=== PATIENT | female | born 1975 | race Caucasian/White ===

== ENCOUNTER 2016-09-22 20:17 | Emergency (ER) | payer OTHER ==
[2016-09-22 20:34] VITALS: TEMP 97.9; BMI 26.4
[2016-09-22] MEDS ORDERED: FAMOTIDINE 20 MG/50 ML IVPB 50 ML IVPB ONE ×2 (21:31→21:58)
[2016-09-22] MEDS ORDERED: PANTOPRAZOLE SODIUM 40 MG in SODIUM CHLORIDE 100 ML IVPB ONE (21:31)
[2016-09-22] MEDS ORDERED: SODIUM CHLORIDE 1,000 ML IV STA (21:31)
[2016-09-22] MEDS ORDERED: PANTOPRAZOLE SODIUM 100 ML IVPB ONE (21:58)
[2016-09-22 22:19] LABS: BASOPHIL 0.6 % (0-2.0); EOSINOPHIL 0.4 % (0-4.5); MCH 31.3 pg (25.7-33.7); MEAN PLT VOLUME 8.1 fl (7.5-11.1); PLATELET COUNT 317 K/MM3 (134-434); WHITE BLOOD COUNT 11.2 K/mm3 (4.0-10.0)
[2016-09-22 22:22] LABS: URINE APPEARANCE CLEAR; URINE BILIRUBIN NEGATIVE (NEGATIVE); URINE BLOOD NEGATIVE (NEGATIVE); URINE COLOR YELLOW; URINE GLUCOSE (UA) NEGATIVE (NEGATIVE); URINE KETONE NEGATIVE (NEGATIVE); URINE NITRITE NEGATIVE (NEGATIVE); URINE UROBILINOGEN 2.0 E.U/dl E.U./dl (0.2-1.0)
[2016-09-22 22:23] LABS: URINE LEUK ESTERASE TRACE (NEGATIVE); URINE PROTEIN 1+ (NEGATIVE)
[2016-09-22 22:29] LABS: URINE MUCUS RARE; URINE RBC 1 /hpf (0-3); URINE WBC 1 /hpf (3-5)
--- NOTE | 2016-09-22 22:52 | PDOC ---
History of Present Illness - General Chief Complaint: Pain, Acute Stated Complaint: NAUSEA Time Seen by Provider: 09/22/16 21:13 History Source: Patient Exam Limitations: No Limitations - History of Present Illness Travel History: No Initial Comments: 09/22/16 21:20 41yo Female patient presents to ED c/o abd pain- burning feeling in stomach, feeling full, and nausea today. Patient states having generalized weakness which prompt her to come to ED for evaluation. Denies vomiting/diarrhea. LNMP: Sep 14. She states she currently takes Control and Protonix 40mg bid but has been using it only when she experienced stomach pain. Today she reportedly took 20mg. Last meal: 1pm today. Timing/Duration: reports: getting worse Quality: reports: moderate, burning, fullness Abdominal Pain Onset Location: reports: epigastric Pain Radiation: reports: no radiation Activities at Onset: reports: none Treatment Prior to Arrive: improves with: other (Protonix 20mg) Aggravating Factors: improves with: None Alleviating Factors: improves with: None Past History - Travel Traveled outside of the country in the last 30 days: No Close contact w/someone who was outside of country & ill: No - Past Medical History Allergies/Adverse Reactions: Allergies Allergy/AdvReac Type Severity Reaction Status Date / Time No Known Allergies Allergy Verified 09/22/16 20:30 Home Medications: Ambulatory Orders Omeprazole 20 mg PO BID #60 capsule. 09/23/16 Asthma: No Cancer: No Cardiac Disorders: No Diabetes: Yes (gestational) HTN: No Seizures: No Thyroid Disease: No - Immunization History Immunization Up to Date: Yes (flu vaccine) - Psycho/Social/Smoking Cessation Hx Anxiety: No Suicidal Ideation: No Smoking Status: No Smoking History: Never smoked Have you smoked in the past 12 months: No Number of Cigarettes Smoked Daily: 0 Hx Alcohol Use: No Drug/Substance Use Hx: No Substance Use Type: None Hx Substance Use Treatment: No Abd/GI Specific PMHX - Complaint Specific PMHX Colitis: No Diverticulitis: No Gall Bladder Disease: No GERD: No Hepatitis: No Irritable Bowel Synd (IBS): No Pancreatitis: No GI Ulcer Disease: No Review of Systems - Review of Systems Able to Perform ROS?: Yes Is the patient limited Prydeinig proficient: No Constitutional: Yes: Weakness. No: Chills, Fever, Malaise, Night Sweats HEENTM: No: Blurred Vision, Double Vision, Nose Congestion Respiratory: No: Cough, Shortness of Breath, Stridor, Wheezing Cardiac (ROS): No: Chest Pain, Edema, Palpitations, Syncope, Chest Tightness ABD/GI: Yes: Other (Abdominal Pain). No: Constipated, Diarrhea, Nausea, Poor Appetite, Poor Fluid Intake, Vomiting : No: Burning, Dysuria, Frequency, Flank Pain, Hematuria, Pain, Urgency Musculoskeletal: No: Back Pain Integumentary: No: Bruising, Erythema, Rash, Sweating Neurological: No: Headache, Numbness, Paresthesia, Seizure, Tingling, Tremors, Weakness, Dizziness Psychiatric: No: Anxiety, Depression, Stressors All Other Systems: Reviewed and Negative *Physical Exam - Vital Signs Last Vital Signs Temp Pulse Resp BP Pulse Ox 97.9 F 82 18 113/81 100 09/22/16 20:32 09/22/16 20:32 09/22/16 20:32 09/22/16 20:32 09/22/16 20:32 - Physical Exam General Appearance: Yes: Nourished, Appropriately Dressed. No: Apparent Distress, Mild Distress, Moderate Distress, Severe Distress HEENT: positive: EOMI, BRENDAN, Normal ENT Inspection, Normal Voice, Symmetrical, TMs Normal, Pharynx Normal. negative: Tonsillar Exudate, Tonsillar Erythema, Rhinorrhea, Sinus Tenderness, TM Bulging, TM Dull, TM Erythema Neck: positive: Trachea midline, Supple. negative: Stridor, Lymphadenopathy (R) , Lymphadenopathy (L) Respiratory/Chest: positive: Lungs Clear, Normal Breath Sounds. negative: Labored Respiration, Decreased Breath Sounds, Stridor, Wheezing Cardiovascular: positive: Regular Rhythm, Regular Rate. negative: JVD, Murmur Gastrointestinal/Abdominal: positive: Soft, Increased Bowel Sounds. negative: Normal Bowel Sounds, Tender, Distended, Guarding, Rebound, Tenderness Lymphatic: negative: Adenopathy Musculoskeletal: positive: Normal Inspection. negative: CVA Tenderness, Decreased Range of Motion Extremity: positive: Normal Capillary Refill, Normal Inspection, Normal Range of Motion, Pelvis Stable. negative: Tender, Pedal Edema, Swelling Integumentary: positive: Normal Color, Dry, Warm Neurologic: positive: lining closer II-XII NML intact, Fully Oriented, Alert, Normal Mood/ Affect, Normal Response, Motor Strength 5/5 ED Treatment Course - LABORATORY CBC & Chemistry Diagram: 09/22/16 21:50 09/22/16 21:50 - ADDITIONAL ORDERS Additional order review: Laboratory Results 09/22/16 21:50 Urine Color Yellow Urine Appearance Clear Urine pH 5.0 D Ur Specific Jbphh 1.025 Urine Protein 1+ H Urine Glucose (UA) Negative Urine Ketones Negative Urine Blood Negative Urine Nitrite Negative Urine Bilirubin Negative Urine Urobilinogen 2.0 e.u/dl H Ur Leukocyte Esterase Trace H Urine HCG, Qual Negative 09/22/16 21:50 RBC 4.25 MCV 92.0 MCHC 34.0 RDW 14.0 MPV 8.1 Neutrophils % 84.0 H D Lymphocytes % 11.2 D Monocytes % 3.8 Eosinophils % 0.4 Basophils % 0.6 - Medications Given in the ED: ED Medications Discontinued Medications Generic Name Dose Route Start Last Admin Trade Name Freq PRN Reason Stop Dose Admin Pantoprazole Sodium 40 mg/ 100 mls @ 200 mls/hr 09/22/16 21:31 09/22/16 22:28 Sodium Chloride IVPB 09/22/16 22:00 200 mls/hr ONCE ONE Administration Sodium Chloride 1,000 mls @ 1,000 mls/hr 09/22/16 21:31 09/22/16 22:28 Normal Saline - IV 09/22/16 22:30 1,000 mls/hr ASDIR STA Administration *DC/Admit/Observation/Transfer Diagnosis at time of Disposition: GERD (gastroesophageal reflux disease) Qualifiers: Esophagitis presence: without esophagitis Qualified Code(s): K21.9 - Gastro- esophageal reflux disease without esophagitis - Discharge Dispostion Disposition: HOME Condition at time of disposition: Good Admit: No - Prescriptions Prescriptions: Omeprazole 20 mg PO BID #60 capsule.dr - Referrals Referrals: Ej Engel MD [Staff Physician] - - Patient Instructions Printed Discharge Instructions: DI for Gastroesophageal Reflux Disease (GERD) Additional Instructions: FOLLOW UP WITH DR. ENGEL (GASTROENTEROLOGY). CALL TO SCHEDULE APPOINTMENT FOR EVALUATION. TAKE MEDICATIONS PRESCRIBED. Print Language: KAZAKH
[2016-09-22 23:05] LABS: ALBUMIN 3.8 g/dl (3.4-5.0); BILIRUBIN,TOTAL 1.4 mg/dL (0.2-1.0); CREATININE 0.5 mg/dL (0.55-1.02)
[2016-09-22 23:19] LABS: BILIRUBIN,DIRECT 0.2 mg/dL (0.0-0.2)
[2016-09-23 00:31] VITALS: BP 114/79; PULSE 79
--- NOTE | 2016-09-23 11:40 | EKG ---
Test Reason : Blood Pressure : / mmHG Vent. Rate : 089 BPM Atrial Rate : 089 BPM P-R Int : 166 ms QRS Dur : 080 ms QT Int : 350 ms P-R-T Axes : 025 018 007 degrees QTc Int : 425 ms NORMAL SINUS RHYTHM NONSPECIFIC T WAVE ABNORMALITY WHEN COMPARED WITH ECG OF 18-MAY-2016 16:11, NONSPECIFIC T WAVE ABNORMALITY NO LONGER EVIDENT IN ANTERIOR LEADS Confirmed by CRISELDA PERRIN MD ([id number]) on 09/23/2016 11:40:22 AM Referred By: Confirmed By:CRISELDA PERRIN MD
== END 2016-09-23 00:32 | disposition home or self-care (01) ==
LOC: JER 20:17
PROC: 3E033GC Introduction of Other Therapeutic Substance into Peripheral Vein, Percutaneous Approach (ICD-10-PCS; principal; 2016-09-22)
PROC: 3E0337Z Introduction of Electrolytic and Water Balance Substance into Peripheral Vein, Percutaneous Approach (ICD-10-PCS; 2016-09-22)
DX: K21.9 Gastro-esophageal reflux disease without esophagitis (principal)
CPT/HCPCS: 36415; 80048; 80076; 81003; 81015; 82150; 83690; 84703; 85025; 93005; 93010; 99283-25

== ENCOUNTER 2018-02-03 08:49 | Emergency (ER) | payer OTHER ==
[2018-02-03 08:53] VITALS: BMI 26.7
--- NOTE | 2018-02-03 09:33 | PDOC ---
History of Present Illness - General Chief Complaint: Headache Stated Complaint: HEADACHE, LT ARM NUMBNESS Time Seen by Provider: 02/03/18 09:01 History Source: Patient Exam Limitations: No Limitations - History of Present Illness Initial Comments: 02/03/18 09:20 42-year-old female presents to the ED with complaints of 10 minutes generalized head pressure greater to the frontal region for about 10 minutes while at work this morning. Patient states has had similar headaches for the past 2-3 years but states this time she had tingling to her tongue last night which resolved within about 5 minutes and then following a headache she had some tingling to her right forehead that lasted a few minutes and then a half hour later developed tingling to her left cheek, left arm and left leg. Patient states symptoms lasted a few minutes and then resolved. Patient denies visual changes, dizziness, weakness, nausea, chest pain or shortness of breath with episodes or presently. Patient states has had similar presentations as mentioned above but has not followed up with a neurologist and has not taken any medications for symptoms such as Motrin or Tylenol. Patient denies any recent head injury or recent illness Timing/Duration: reports: episodic Severity: Yes: mild Associated Symptoms: reports: paresthesia. denies: confusion, fatigue, loss of consciousness, nausea/vomiting, numbness in legs/feet, slurred speech, trouble walking, vision changes, weakness Past History - Travel Traveled outside of the country in the last 30 days: No - Past Medical History Allergies/Adverse Reactions: Allergies Allergy/AdvReac Type Severity Reaction Status Date / Time No Known Allergies Allergy Verified 02/03/18 08:50 Home Medications: Ambulatory Orders NK [No Known Home Medication] 02/03/18 Asthma: No Cancer: No Cardiac Disorders: No COPD: No Diabetes: Yes (gestational) HTN: No Seizures: No Thyroid Disease: No - Immunization History Immunization Up to Date: Yes (flu vaccine) - Suicide/Smoking/Psychosocial Hx Smoking Status: No Smoking History: Never smoked Have you smoked in the past 12 months: No Number of Cigarettes Smoked Daily: 0 Information on smoking cessation initiated: No Hx Alcohol Use: No Drug/Substance Use Hx: No Substance Use Type: None Hx Substance Use Treatment: No Patient Lives Alone: No Lives with/in: spouse/SO Neuro Specific PMHX - Complaint Specific PMHX Migraine: No Review of Systems - Review of Systems Able to Perform ROS?: No Constitutional: No: Symptoms Reported HEENTM: No: Symptoms Reported Respiratory: No: Symptoms reported Cardiac (ROS): No: Symptoms Reported ABD/GI: No: Symptoms Reported : No: Symptoms Reported Musculoskeletal: No: Symptoms Reported Integumentary: No: Symptoms Reported Neurological: Yes: Headache, Tingling Endocrine: No: Symptoms Reported Hematologic/Lymphatic: No: Symptoms Reported *Physical Exam - Vital Signs Last Vital Signs Temp Pulse Resp BP Pulse Ox 98.3 F 99 H 18 126/79 100 02/03/18 08:51 02/03/18 08:51 02/03/18 08:51 02/03/18 08:51 02/03/18 08:51 - Physical Exam General Appearance: Yes: Nourished, Appropriately Dressed. No: Apparent Distress HEENT: positive: EOMI, BRENDAN, TMs Normal, Pharynx Normal. negative: Pale Conjunctivae Neck: positive: Supple. negative: Decreased range of motion Respiratory/Chest: positive: Lungs Clear, Normal Breath Sounds. negative: Respiratory Distress, Accessory Muscle Use Cardiovascular: positive: Regular Rhythm, Regular Rate. negative: Murmur Gastrointestinal/Abdominal: positive: Soft. negative: Tenderness Extremity: positive: Normal Capillary Refill, Normal Range of Motion, Other. negative: Pedal Edema Integumentary: positive: Warm, Moist Neurologic: positive: Normal Mood/Affect, Motor Strength 5/5 Medical Decision Making - Medical Decision Making 02/03/18 09:37 Patient with episodic frontal headache that resolved prior to arrival. Patient also had some tingling to various parts of her body and although she has had similar presentations for the past 2-3 years. Patient had a head CT done in March 2016 here at [facility] which was negative for acute findings. Patient states has not followed up with a neurologist and decided come to the ER today when her symptoms recurred. Patient is currently asymptomatic since arrival stating her frontal throbbing pressure resolved without intervention. Patient recommended to follow up with neurology and to take Tylenol extra strength for discomfort when symptoms occur and if no resolution to return to the ER. *DC/Admit/Observation/Transfer Diagnosis at time of Disposition: Headache - Discharge Dispostion Disposition: HOME Condition at time of disposition: Improved - Referrals Referrals: Fran John MD [Staff Physician] - - Patient Instructions Printed Discharge Instructions: DI for Hormonal and Tension Headaches Additional Instructions: Take Tylenol 975 mg if you develop any throbbing pressure to your head or forehead. If your symptoms do not resolve over the next hour or 2 then you may return to the ED. Please also follow up with referred neurologist. [place] Tylenol 975 mg si desarrolla alguna presin pulstil en la caleb o en la frente. si aleksandra sntomas no se resuelven en la prxima hora o 2 entonces usted puede volver a la ED. por favor tambin el seguimiento con el neurlogo referido - Post Discharge Activity
[2018-02-03 09:57] VITALS: BP 123/66; PULSE 92; TEMP 98.2
== END 2018-02-03 09:53 | disposition home or self-care (01) ==
LOC: JER 08:49
DX: R51 Headache (principal); Z86.32 Personal history of gestational diabetes
CPT/HCPCS: 99282-25

== ENCOUNTER 2019-02-10 21:12 | Emergency (ER) | payer OTHER | END 2019-02-11 00:17 | disposition home or self-care (01) | LOC: JER 02-11 00:17 | DX: R51 Headache (principal); Z86.32 Personal history of gestational diabetes ==

== ENCOUNTER 2019-05-08 15:18 | Emergency (ER) | payer SELFPAY ==
--- NOTE | 2019-05-08 15:33 | PDOC ---
Rapid Medical Evaluation Medical Evaluation: Allergies Allergy/AdvReac Type Severity Reaction Status Date / Time No Known Allergies Allergy Verified 02/03/18 08:50 05/08/19 15:29 I have performed a brief in-person evaluation of this patient. The patient presents with a chief complaint of: Dizziness x 3 days, no vertigo, CRYSTAL, blurry vision, n/v, focal weakness, CP or SOB Pertinent physical exam findings:stable and well yann I have ordered the following:ekg/labs The patient will proceed to the ED for further evaluation. Discharge Disposition - Diagnosis Dizzy - Referrals - Patient Instructions - Post Discharge Activity
[2019-05-08 15:35] VITALS: TEMP 98.2; BMI 26.3
[2019-05-08 16:23] LABS: BASO % 1.2 % (0-2.0); EOS % 2.2 % (0-4.5); HEMATOCRIT 42.1 % (32.4-45.2); HEMOGLOBIN 14.7 GM/dL (10.7-15.3); LYMPH % 37.8 % (8-40); MCH 34.3 pg (25.7-33.7); MEAN CELL VOLUME 98.2 fl (80-96); MEAN PLT VOLUME 8.2 fl (7.5-11.1); MONO % 7.3 % (3.8-10.2); NEUT % 51.5 % (42.8-82.8); PLATELET COUNT 277 K/MM3 (134-434); RBC 4.29 M/mm3 (3.60-5.2); RDW 13.4 % (11.6-15.6); WHITE BLOOD COUNT 5.3 K/mm3 (4.0-10.0)
[2019-05-08 16:28] LABS: EPI CELLS 7.4 /HPF (0-5/HPF); HYALINE CASTS 1 /lpf (0-8); URINE APPEARANCE CLEAR; URINE BACTERIA 5.4 /hpf (NEGATIVE); URINE BILIRUBIN NEGATIVE (NEGATIVE); URINE COLOR YELLOW; URINE GLUCOSE (UA) NEGATIVE (NEGATIVE); URINE KETONE NEGATIVE (NEGATIVE); URINE LEUK ESTERASE 1+ (NEGATIVE); URINE NITRITE NEGATIVE (NEGATIVE); URINE PROTEIN NEGATIVE (NEGATIVE); URINE RBC 1 /hpf (0-4); URINE UROBILINOGEN 0.2 mg/dL (0.2-1.0); URINE WBC 4 /hpf (0-5)
[2019-05-08 17:03] LABS: ALBUMIN 3.9 g/dl (3.4-5.0); ALK PHOS 86 U/L (45-117); ANION GAP 6 MMOL/L (8-16); BILIRUBIN,TOTAL 1.7 mg/dL (0.2-1); CALCIUM 8.9 mg/dL (8.5-10.1); CHLORIDE 104 mmol/L (98-107); CO2 27 mmol/L (21-32); CREATININE 0.4 mg/dL (0.55-1.3); GLUCOSE,RANDOM 68 mg/dL (74-106); POTASSIUM 4.4 mmol/L (3.5-5.1); SGOT/AST 16 U/L (15-37); SGPT/ALT 20 U/L (13-61); SODIUM 136 mmol/L (136-145)
--- NOTE | 2019-05-08 18:04 | PDOC ---
History of Present Illness - General Chief Complaint: Lightheaded Stated Complaint: DIZZINESS Time Seen by Provider: 05/08/19 15:35 History Source: Patient Exam Limitations: Language Barrier (bend sorter ID#[id number]) Past History - Past Medical History Allergies/Adverse Reactions: Allergies Allergy/AdvReac Type Severity Reaction Status Date / Time No Known Allergies Allergy Verified 05/08/19 15:35 Home Medications: Ambulatory Orders Cetirizine HCl [Zyrtec -] 10 mg PO DAILY #14 tablet 02/10/19 Pseudoephedrine HCl [Sudafed] 30 mg PO QID #24 tablet 02/10/19 Asthma: No Cancer: No Cardiac Disorders: No COPD: No Diabetes: Yes (gestational) HTN: No Seizures: No Thyroid Disease: No - Immunization History Immunization Up to Date: Yes (flu vaccine) - Suicide/Smoking/Psychosocial Hx Smoking Status: No Smoking History: Never smoked Have you smoked in the past 12 months: No Number of Cigarettes Smoked Daily: 0 Hx Alcohol Use: No Drug/Substance Use Hx: No Substance Use Type: None Hx Substance Use Treatment: No *Physical Exam - Vital Signs Last Vital Signs Temp Pulse Resp BP Pulse Ox 98.2 F 85 18 110/71 99 05/08/19 15:33 05/08/19 15:33 05/08/19 15:33 05/08/19 15:33 05/08/19 15:33 - Physical Exam General Appearance: No: Apparent Distress HEENT: positive: EOMI, BRENDAN, Other (no nystagmus) Respiratory/Chest: positive: Lungs Clear, Normal Breath Sounds. negative: Respiratory Distress Cardiovascular: positive: Regular Rhythm, Regular Rate, S1, S2. negative: Murmur Gastrointestinal/Abdominal: positive: Normal Bowel Sounds, Soft. 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 negative: Facial Droop, Confused, Disoriented ED Treatment Course - LABORATORY CBC & Chemistry Diagram: 05/08/19 16:00 05/08/19 16:00 - ADDITIONAL ORDERS Additional order review: Laboratory Results 08/05/08/19 05/08/19 16:00 16:00 16:00 Sodium 136 Potassium 4.4 Chloride 104 Carbon Dioxide 27 Anion Gap 6 L BUN 10.0 Creatinine 0.4 L Est GFR (CKD-EPI)AfAm 149.94 Est GFR (CKD-EPI)NonAf 129.37 Random Glucose 68 L Calcium 8.9 Total Bilirubin 1.7 H AST 16 ALT 20 Alkaline Phosphatase 86 Troponin I < 0.02 Total Protein 8.0 Albumin 3.9 Urine Color Yellow Urine Appearance Clear Urine pH 6.0 Ur Specific [place] 1.012 Urine Protein Negative Urine Glucose (UA) Negative Urine Ketones Negative Urine Blood Negative Urine Nitrite Negative Urine Bilirubin Negative Urine Urobilinogen 0.2 Ur Leukocyte Esterase 1+ H Urine WBC (Auto) 4 Urine RBC (Auto) 1 Urine Casts (Auto) 1 U Epithel Cells (Auto) 7.4 Urine Bacteria (Auto) 5.4 Urine HCG, Qual Negative 05/08/19 16:00 RBC 4.29 MCV 98.2 H MCHC 35.0 RDW 13.4 MPV 8.2 Neutrophils % 51.5 D Lymphocytes % 37.8 D Monocytes % 7.3 D Eosinophils % 2.2 D Basophils % 1.2 Medical Decision Making - Medical Decision Making 43 y/o F with no sig pmh presents with lightheaded x 3 days; states feels like she is " drunk." Has suffered from vertigo in the past but states this does not feel like that. Saw PCP yesterday, who gave her Meclizine which did not help with her symptoms. Dizziness is not worsened by anything. Had CRYSTAL yesterday, started in front and radiated to back; CRYSTAL resolved after taking 1 Motrin and has not returned. Denies fever, sob, cp, abd pain, vomiting, diarrhea, visual/ gait changes, numbness/tingling/weakness of extremities. PE unremarkable with no focal deficits, normal gait EKG: NSr at 79 bpm, no ST-T changes Labs reviewed; glucose 68 - patient given food to eat Bili slightly elevated but was elevated in the past as well; patient had no abdominal pain Patient appears well Advised PCP f/u 05/08/19 18:00 *DC/Admit/Observation/Transfer Diagnosis at time of Disposition: Dizzy - Discharge Dispostion Disposition: HOME Condition at time of disposition: Stable Decision to Admit order: No - Referrals - Patient Instructions Printed Discharge Instructions: DI for Dizziness-Nonvertigo Additional Instructions: Thank you for choosing [facility]. It was a pleasure taking care of you. Your labs were unremarkable other than slightly low sugar Please follow-up with your doctor for further eval Stop the Meclizine for now as it can also make you dizzy Return to the Emergency Department if your symptoms worsen or persist, you have fever, shortness of breath, chest pain, severe abdominal pain, vomiting, weakness of extremities (arms and/or legs), changes in vision or walking or other concerning symptoms. Migdalia por elegir el [facility]. Fue un placer cuidar de ti. Asha laboratorios no tenan nada de especial aparte de un poco de azcar Annia un seguimiento con chopra mdico para marilee evaluacin adicional. Detenga la Meclizine por ahora, ya que tambin puede marearlo. Regrese al departamento de emergencias si asha sntomas empeoran o persisten, tiene fiebre, falta de aliento, dolor en el pecho, dolor abdominal intenso, vmitos, debilidad de las extremidades (brazos y / o piernas), cambios en la visin o al caminar u otros sntomas relacionados. - Post Discharge Activity
[2019-05-08 18:13] VITALS: BP 114/76; PULSE 68
--- NOTE | 2019-05-09 10:33 | EKG ---
Test Reason : Blood Pressure : / mmHG Vent. Rate : 079 BPM Atrial Rate : 079 BPM P-R Int : 150 ms QRS Dur : 074 ms QT Int : 350 ms P-R-T Axes : 042 036 025 degrees QTc Int : 401 ms NORMAL SINUS RHYTHM NORMAL ECG WHEN COMPARED WITH ECG OF 22-SEP-2016 20:41, NO SIGNIFICANT CHANGE WAS FOUND Confirmed by MANUEL DICKSON MD ([id number]) on 05/09/2019 10:32:43 AM Referred By: Confirmed By:MANUEL DICKSON MD
== END 2019-05-08 18:14 | disposition home or self-care (01) ==
LOC: JER 15:18
DX: R42 Dizziness and giddiness (principal)
CPT/HCPCS: 36415; 80053; 81003; 84484; 84703; 85025; 93005; 93010; 99284-25

== ENCOUNTER 2019-08-20 19:34 | Emergency (ER) | payer SELFPAY ==
[2019-08-20 19:56] VITALS: TEMP 97.9; BMI 27.1
[2019-08-20] MEDS ORDERED: ASPIRIN 81 MG CHEWABLE TABLETS PO ONE (19:56)
--- NOTE | 2019-08-20 19:57 | PDOC ---
Rapid Medical Evaluation Chief Complaint: Chest Pain Time Seen by Provider: 08/20/19 19:52 Medical Evaluation: Allergies Allergy/AdvReac Type Severity Reaction Status Date / Time No Known Allergies Allergy Verified 05/08/19 15:35 08/20/19 19:54 I have performed a brief in-person evaluation of this patient. The patient presents with a chief complaint of: left side pinching chest pain x 5hrs. Denies SOB, palpitations, dizziness, numbness or tingling sensation, CRYSTAL, sweats, N./V. report pain is localized to left side Pertinent physical exam findings: mild reproduceable left 2nd intercostal space tenderness in NAD. heart RRR. lungs CTAB I have ordered the following: ekg, cbc, cardiac profile, CXR The patient will proceed to the ED for further evaluation Discharge Disposition - Diagnosis Chest wall discomfort - Discharge Dispostion Condition at time of disposition: Stable - Referrals - Patient Instructions - Post Discharge Activity
--- NOTE | 2019-08-20 20:49 | PDOC ---
Documentation entered by Dillon Valdez SCRIBE, acting as scribe for Pia Mari MD. Pia Mari MD: This documentation has been prepared by the jenniferibeJosé Miguel Daniel, SCRIBE, under my direction and personally reviewed by me in its entirety. I confirm that the documentation accurately reflects all work, treatment, procedures, and medical decision making performed by me. Attending Attestation - Resident Resident Name: Macy Ellington - ED Attending Attestation I have performed the following: I have examined & evaluated the patient, The case was reviewed & discussed with the resident, I agree w/resident's findings & plan, Exceptions are as noted - HPI HPI: 08/20/19 20:50 The patient is a 44 year old with no past medical history here today for evaluation of chest pain. The patient reports that she had one episode of chest pain yesterday that she describes as heartburn and states that it resolved on its own. She reports that the pain returned this afternoon and describes it as localized to the left side, better while lying down, and describes it as a pins and needles sensation. Patient denies headache, lightheadedness. Denies fever, chills. Denies shortness of breath. Denies nausea, vomiting, diarrhea, abdominal pain. Allergies: NKA - Physicial Exam PE: 08/20/19 20:51 GENERAL: Well developed, well nourished. Awake and alert. No acute distress. HEENT: Normocephalic, atraumatic. PERRLA, EOMI. No conjunctival pallor. Sclera are non- icteric. Moist mucous membranes. Oropharynx is clear. NECK: Supple. Full ROM. No JVD. Carotid pulses 2+ and symmetric, without bruits. No thyromegaly. No lymphadenopathy. CARDIOVASCULAR: Regular rate and rhythm. No murmurs, rubs, or gallops. Distal pulses are 2+ and symmetric. PULMONARY: No evidence of respiratory distress. Lungs clear to auscultation bilaterally. No wheezing, rales or rhonchi. ABDOMINAL: Soft. Non-tender. Non-distended. No rebound or guarding. No organomegaly. Normoactive bowel sounds. MUSCULOSKELETAL Normal range of motion at all joints. No bony deformities or tenderness. No CVA tenderness. EXTREMITIES: No cyanosis. No clubbing. No edema. No calf tenderness. SKIN: Warm and dry. Normal capillary refill. No rashes. No jaundice. NEUROLOGICAL: Alert, awake, appropriate. Cranial nerves 2-12 intact. No deficits to light touch and temperature in face, upper extremities and lower extremities. No motor deficits in the in face, upper extremities and lower extremities. Normoreflexic in the upper and lower extremities. Normal speech. Toes are down- going bilaterally. Gait is normal without ataxia. PSYCHIATRIC: Cooperative. Good eye contact. Appropriate mood and affect. - Medical Decision Making 08/20/19 20:58 44-year-old female who developed left-sided chest pain about 5 hours prior. No history of trauma and she describes it as left-sided [id number] No associated symptoms. No shortness of breath nausea vomiting diaphoresis 08/20/19 20:59 Past medical history 4 para 4 Past surgical history C-sections 08/21/19 01:03 CBC is unremarkable and no significant leukocytosis or anemia Review of the chemistry shows a chronically elevated ~total bilirubin She has 2 sets of negative cardiac enzymes Chest x-ray no infiltrates, no effusions, no changes since last x-ray EKG is normal sinus rhythm with no signs of acute ischemia
[2019-08-20 20:51] LABS: BASO % 1.5 % (0-2.0); HEMATOCRIT 39.3 % (32.4-45.2); HEMOGLOBIN 14.1 GM/dL (10.7-15.3); MCH 34.8 pg (25.7-33.7); MCHC 35.9 g/dl (32.0-36.0); MEAN CELL VOLUME 97.1 fl (80-96); MEAN PLT VOLUME 8.3 fl (7.5-11.1); NEUT % 47.5 % (42.8-82.8); PLATELET COUNT 277 K/MM3 (134-434); RBC 4.05 M/mm3 (3.60-5.2); RDW 13.6 % (11.6-15.6); WHITE BLOOD COUNT 5.9 K/mm3 (4.0-10.0)
--- NOTE | 2019-08-20 21:04 | PDOC ---
History of Present Illness - General History Source: Patient - History of Present Illness Initial Comments: 08/20/19 20:57 Patient is a 44 year old female with no significant PMH who presents with chest pain since this afternoon. Pt first experienced "burning" chest pain while at work yesterday which she attributed to heart burn. Pain eventually subsided. Today, the pain returned but waws localized to the left and felt like "pins and needles". Pain is improved when lying flat. No associated palpitations, SOB, diaphoresis, nausea, vomiting, chills. States she has had heartburn sensations before but has never experienced this "pins and needles" sensation. Denies dyspnea, leg swelling or pain, recent travel or immobilization. Allergies: NKDA Social history: No smoking. No alcohol. No illicit drugs. Surgical history: None PMD: [facility] 08/20/19 21:05 <Macy Ellington - Last Filed: 08/20/19 21:40> <Pia Mari - Last Filed: 08/21/19 01:07> - General Chief Complaint: Chest Pain Stated Complaint: CHEST PAIN Time Seen by Provider: 08/20/19 19:52 Past History - Past Medical History Asthma: No Cancer: No Cardiac Disorders: No COPD: No Diabetes: Yes (gestational) HTN: No Seizures: No Thyroid Disease: No - Immunization History Immunization Up to Date: Yes (flu vaccine) - Psycho Social/Smoking Cessation Hx Smoking Status: No Smoking History: Never smoked Have you smoked in the past 12 months: No Number of Cigarettes Smoked Daily: 0 Information on smoking cessation initiated: No Hx Alcohol Use: No Drug/Substance Use Hx: No Substance Use Type: None Hx Substance Use Treatment: No <Macy Ellington - Last Filed: 08/20/19 21:40> <Pia Mari - Last Filed: 08/21/19 01:07> - Past Medical History Allergies/Adverse Reactions: Allergies Allergy/AdvReac Type Severity Reaction Status Date / Time No Known Allergies Allergy Verified 08/20/19 19:55 Home Medications: Ambulatory Orders Cetirizine HCl [Zyrtec -] 10 mg PO DAILY #14 tablet 02/10/19 Pseudoephedrine HCl [Sudafed] 30 mg PO QID #24 tablet 02/10/19 *Physical Exam - Vital Signs Last Vital Signs Temp Pulse Resp BP Pulse Ox 97.9 F 83 17 133/87 100 08/20/19 19:52 08/20/19 19:52 08/20/19 19:52 08/20/19 19:52 08/20/19 19:52 <RakelMacy - Last Filed: 08/20/19 21:40> - Vital Signs Last Vital Signs Temp Pulse Resp BP Pulse Ox 97.9 F 83 17 133/87 100 08/20/19 19:52 08/20/19 19:52 08/20/19 19:52 08/20/19 19:52 08/20/19 19:52 <Pia Mari - Last Filed: 08/21/19 01:07> ED Treatment Course - LABORATORY CBC & Chemistry Diagram: 08/20/19 20:36 08/20/19 20:36 <Macy Ellington - Last Filed: 08/20/19 21:40> - LABORATORY CBC & Chemistry Diagram: 08/20/19 20:36 08/20/19 20:36 - ADDITIONAL ORDERS Additional order review: Laboratory Results 08/20/19 08/20/19 08/20/19 23:32 20:36 20:36 Sodium 136 Potassium 4.2 Chloride 103 Carbon Dioxide 27 Anion Gap 5 L BUN 10.4 Creatinine 0.7 Est GFR (CKD-EPI)AfAm 123.86 Est GFR (CKD-EPI)NonAf 106.87 Random Glucose 106 Calcium 8.4 L Total Bilirubin 1.9 H AST 14 L ALT 24 Alkaline Phosphatase 88 Creatine Kinase 68 76 Troponin I < 0.02 < 0.02 Total Protein 7.8 Albumin 3.8 08/20/19 20:36 RBC 4.05 MCV 97.1 H MCHC 35.9 RDW 13.6 MPV 8.3 Neutrophils % 47.5 Lymphocytes % 43.0 H Monocytes % 6.0 Eosinophils % 2.0 Basophils % 1.5 - Medications Given in the ED: ED Medications Discontinued Medications Generic Name Dose Route Start Last Admin Trade Name Freq PRN Reason Stop Dose Admin Aspirin 162 mg 08/20/19 19:56 08/20/19 21:38 Asa - PO 08/20/19 19:57 162 mg ONCE ONE Administration <Pia Mari - Last Filed: 08/21/19 01:07> Medical Decision Making - Medical Decision Making 08/20/19 21:40 - EKG, serial trops, CBC, CMP - CXR - Give aspirin <Macy Ellington - Last Filed: 08/20/19 21:40> Discharge <Macy Ellington - Last Filed: 08/20/19 21:40> - Discharge Information Problems reviewed: Yes - Admission No <Pia Mari - Last Filed: 08/21/19 01:07> - Discharge Information Clinical Impression/Diagnosis: Chest wall discomfort Condition: Stable Disposition: HOME - Patient Discharge Instructions Patient Printed Discharge Instructions: DI for Atypical Chest Pain Additional Instructions: please followup with your regular physician return for worsening symptoms Print Language: SPA
[2019-08-20 21:23] LABS: ALBUMIN 3.8 g/dl (3.4-5.0); BILIRUBIN,TOTAL 1.9 mg/dL (0.2-1); BLOOD UREA NITROGEN 10.4 mg/dL (7-18); CALCIUM 8.4 mg/dL (8.5-10.1); CREATININE 0.7 mg/dL (0.55-1.3); POTASSIUM 4.2 mmol/L (3.5-5.1); TOT PROT 7.8 g/dl (6.4-8.2)
[2019-08-20] MEDS ORDERED: ASPIRIN 81 MG CHEWABLE TABLETS ONE (21:35)
[2019-08-21 01:42] VITALS: BP 135/80; PULSE 82
--- NOTE | 2019-08-21 10:12 | EKG ---
Test Reason : Blood Pressure : / mmHG Vent. Rate : 079 BPM Atrial Rate : 079 BPM P-R Int : 164 ms QRS Dur : 076 ms QT Int : 356 ms P-R-T Axes : 024 026 013 degrees QTc Int : 408 ms NORMAL SINUS RHYTHM NORMAL ECG WHEN COMPARED WITH ECG OF 08-MAY-2019 15:41, NO SIGNIFICANT CHANGE WAS FOUND Confirmed by JESUS SANDERS MD ([id number]) on 08/21/2019 10:11:45 AM Referred By: Confirmed By:JESUS SANDERS MD
--- NOTE | 2019-09-18 15:10 | EKG ---
Test Reason : Blood Pressure : / mmHG Vent. Rate : 081 BPM Atrial Rate : 081 BPM P-R Int : 160 ms QRS Dur : 082 ms QT Int : 354 ms P-R-T Axes : 030 029 017 degrees QTc Int : 411 ms NORMAL SINUS RHYTHM NORMAL ECG WHEN COMPARED WITH ECG OF 08-MAY-2019 15:41, NO SIGNIFICANT CHANGE WAS FOUND Confirmed by JESUS SANDERS MD ([id number]) on 09/18/2019 3:09:20 PM Referred By: Confirmed By:JESUS SANDERS MD
== END 2019-08-21 01:15 | disposition home or self-care (01) ==
LOC: JER 19:34
DX: R07.89 Other chest pain (principal); Z86.32 Personal history of gestational diabetes
CPT/HCPCS: 36415; 71046-TC-FY; 80053; 82550; 84484; 85025; 93005; 93010; 99283-25

== ENCOUNTER 2020-05-28 16:02 | Emergency (ER) | payer SELFPAY ==
[2020-05-28 16:07] VITALS: BP 126/86; PULSE 97; TEMP 98.2; BMI 26.2
--- NOTE | 2020-05-28 17:19 | PDOC ---
History of Present Illness - General Chief Complaint: Chest Pain Stated Complaint: CHEST PAIN Time Seen by Provider: 05/28/20 16:45 History Source: Patient Exam Limitations: Clinical Condition - History of Present Illness Initial Comments: 05/28/20 17:15 Patient with no significant past medical history present with complaint of sudden onset of pain to lateral aspect of anterior upper chest wall in front of left shoulder and upper back upon wake this morning. Patient described the pain as aching pain to chest and upper back. Denies shortness of breath, palpitation, fever, chills, weakness, numbness or tingling sensation, nausea, vomiting, dizziness. Denies any other symptoms. Patient has not taken anything for symptoms Is this a multiple visit Asthma Patient?: No Timing/Duration: 4-6 hours Past History - Medical History Allergies/Adverse Reactions: Allergies Allergy/AdvReac Type Severity Reaction Status Date / Time No Known Allergies Allergy Verified 12/23/19 13:40 Home Medications: Ambulatory Orders Pantoprazole Sodium [Protonix] 40 mg PO DAILY #20 tablet. 12/23/19 Naproxen 500 mg PO BID PRN #16 tablet 05/28/20 Asthma: No Cancer: No Cardiac Disorders: No COPD: No Diabetes: Yes (gestational) HTN: No Seizures: No Thyroid Disease: No - Reproductive History Is Patient Now?: No - Immunization History Immunization Up to Date: Yes (flu vaccine) - Psycho-Social/Smoking History Smoking Status: No Smoking History: Never smoked Have you smoked in the past 12 months: No Number of Cigarettes Smoked Daily: 0 Information on smoking cessation initiated: No - Substance Abuse Hx (Audit-C & DAST Scrn) How often the patient has a drink containing alcohol: Never Score: In Men: 4 or > Positive; In Women: 3 or > Positive: 0 Screen Result (Pos requires Nsg. Audit-10AR): Negative In the last yr the pt used illegal drug/Rx for NonMed reason: No Score: Yes response is considered Positive: 0 Screen Result (Positive result requires Nsg. DAST-10): Negative Review of Systems - Review of Systems Able to Perform ROS?: Yes Is the patient limited Kiswahili proficient: No Constitutional: No: Chills, Fever, Malaise HEENTM: No: Symptoms Reported, See HPI, Eye Pain, Blurred Vision, Tearing, Recent change in vision, Double Vision, Cataracts, Ear Pain, Ocular Prothesis, Ear Discharge, Nose Pain, Nose Congestion, Tinnitus, Nose Bleeding, Hearing Loss, Throat Pain, Throat Swelling, Mouth Pain, Dental Problems, Difficulty Swallowing, Mouth Swelling, Other Respiratory: No: Symptoms reported, See HPI, Cough, Orthopnea, Shortness of Breath, SOB with Exertion, SOB at Rest, Stridor, Wheezing, Productive cough, Hemoptysis, Other Cardiac (ROS): Yes: Symptoms Reported, See HPI, Chest Pain (left upper chest wall pain). No: Edema, Irregular Heart Rate, Lightheadedness, Palpitations, Syncope, Chest Tightness, Other ABD/GI: No: Symptoms Reported, Nausea, Vomiting : No: Symptoms Reported Musculoskeletal: Yes: Symptoms Reported, See HPI, Back Pain (upper back pain). No: Muscle Weakness Integumentary: No: Symptoms Reported Neurological: No: Symptoms reported, Headache, Numbness, Weakness, Dizziness All Other Systems: Reviewed and Negative *Physical Exam - Vital Signs Last Vital Signs Temp Pulse Resp BP Pulse Ox 98.2 F 97 H 18 126/86 97 05/28/20 16:05 05/28/20 16:05 05/28/20 16:05 05/28/20 16:05 05/28/20 16:05 - Physical Exam 05/28/20 17:18 GENERAL: Well developed, well nourished. Awake and alert. No acute distress. HEENT: Normocephalic, atraumatic. PERRLA, EOMI. No conjunctival pallor. Sclera are non-icteric. Moist mucous membranes. Oropharynx is clear. NECK: Supple. Full ROM. CARDIOVASCULAR: Regular rate and rhythm. No murmurs, rubs, or gallops. Distal pulses are 2+ and symmetric. PULMONARY: No evidence of respiratory distress. Lungs clear to auscultation bilaterally. No wheezing, rales or rhonchi. ABDOMINAL: Soft. Non-tender. Non-distended. No rebound or guarding. No organomegaly. Normoactive bowel sounds. MUSCULOSKELETAL mild reproducible tenderness to anterior chest wall over left second intercostal space and anterior left shoulder otherwise unremarkable exam.Normal range of motion at all joints. EXTREMITIES: No cyanosis. No clubbing. No edema. No calf tenderness. SKIN: Warm and dry. Normal capillary refill. No rashes. No jaundice. NEUROLOGICAL: Alert, awake, appropriate. Gait is normal without ataxia. PSYCHIATRIC: Cooperative. Good eye contact. Appropriate mood General Appearance: Yes: Nourished, Appropriately Dressed. No: Apparent Distress ED Treatment Course - LABORATORY CBC & Chemistry Diagram: 05/28/20 16:55 05/28/20 16:55 - RADIOLOGY Radiology Studies Ordered: Category Date Time Status CHEST PA & LAT [RAD] Stat Radiology 05/28/20 17:01 Taken Medical Decision Making - Medical Decision Making 05/28/20 17:16 Patient with no significant past medical history present with complaint of sudden onset of pain to lateral aspect of anterior upper chest wall in front of left shoulder and upper back upon wake this morning. Patient described the pain as aching pain to chest and upper back. Denies shortness of breath, palpitation, fever, chills, weakness, numbness or tingling sensation, nausea, vomiting, dizziness. Denies any other symptoms. Patient has not taken anything for symptoms Exam significant for mild reproducible tenderness to anterior chest wall over left second intercostal space and anterior left shoulder otherwise unremarkable exam. Patient in no acute distress. Normal cardio and lung exam. Pupil equal and reflective to light bilateral. Normal neuro exam. No abdominal tenderness on exam. Symptoms likely costochondritis versus less likely cardiogenic symptoms. We will do one troponin and basic labs CBC and chemistry and checks x-ray to rule out acute cardia abnormality. Patient to be discharge home to take Tylenol as needed for pain with normal labs and x-ray with strict follow-up instructions. Reassess after labs and imaging 05/28/20 18:26 Checks x-ray shows no acute abnormality. EKG shows normal sinus rhythm. Chemistry lab shows no acute abnormality and troponin is negative. Patient symptoms likely musculoskeletal. Naproxen 5 mg p.o. given for pain patient stable for discharge with strict follow-up instructions with PCP Discharge - Discharge Information Problems reviewed: Yes Clinical Impression/Diagnosis: Chest wall discomfort Condition: Stable Disposition: HOME - Admission No - Additional Discharge Information Prescriptions: Naproxen 500 mg PO BID PRN #16 tablet PRN Reason: pain - Follow up/Referral Referrals: Samara Edmond MD [Primary Care Provider] - - Patient Discharge Instructions Patient Printed Discharge Instructions: DI for Costochondritis Additional Instructions: Your blood work is normal. Your chest x-ray and EKG is normal as well. Your pain is likely from muscle pain. Take prescribed medication as needed for pain. Follow-up with your primary care. Come back to emergency room with worsening chest pain with shortness of breath, dizziness, vomiting or worsening symptoms Print Language: TANZANIAN - Post Discharge Activity
[2020-05-28 18:14] LABS: ALK PHOS 79 U/L (45-117); ANION GAP 5 MMOL/L (8-16); BILIRUBIN,TOTAL 2.4 mg/dL (0.2-1); BLOOD UREA NITROGEN 12.2 mg/dL (7-18); CHLORIDE 105 mmol/L (98-107); CO2 26 mmol/L (21-32); CREATININE 0.5 mg/dL (0.55-1.3); GLUCOSE,RANDOM 82 mg/dL (74-106); POTASSIUM 4.7 mmol/L (3.5-5.1); SGOT/AST 31 U/L (15-37); SGPT/ALT 66 U/L (13-61); SODIUM 136 mmol/L (136-145)
[2020-05-28] MEDS ORDERED: NAPROXEN 500 MG TABLET PO ONE (18:22)
[2020-05-28] MEDS ORDERED: NAPROXEN 500 MG TABLET ONE (18:23)
[2020-05-28 19:10] LABS: BASO % 0.9 % (0-2.0); HEMATOCRIT 40.5 % (32.4-45.2); HEMOGLOBIN 14.6 GM/dL (10.7-15.3); LYMPH % 35.7 % (8-40); MCH 35.5 pg (25.7-33.7); MCHC 36.1 g/dl (32.0-36.0); MEAN CELL VOLUME 98.5 fl (80-96); MEAN PLT VOLUME 8.7 fl (7.5-11.1); MONO % 5.7 % (3.8-10.2); NEUT % 56.7 % (42.8-82.8); PLATELET COUNT 252 K/MM3 (134-434); RBC 4.11 M/mm3 (3.60-5.2); RDW 13.5 % (11.6-15.6); WHITE BLOOD COUNT 5.9 K/mm3 (4.0-10.0)
--- NOTE | 2020-05-29 12:39 | EKG ---
Test Reason : Blood Pressure : / mmHG Vent. Rate : 095 BPM Atrial Rate : 095 BPM P-R Int : 162 ms QRS Dur : 076 ms QT Int : 330 ms P-R-T Axes : 048 043 026 degrees QTc Int : 414 ms NORMAL SINUS RHYTHM POSSIBLE LEFT ATRIAL ENLARGEMENT WHEN COMPARED WITH ECG OF 23-DEC-2019 13:58, NO SIGNIFICANT CHANGE WAS FOUND Confirmed by CRISELDA PERRIN MD ([id number]) on 05/29/2020 12:38:36 PM Referred By: Confirmed By:CRISELDA PERRIN MD
== END 2020-05-28 18:33 | disposition home or self-care (01) ==
LOC: JER 16:02
DX: R07.9 Chest pain, unspecified (principal)
CPT/HCPCS: 36415; 71046-TC-FY; 80053; 82550; 84484; 84703; 85025; 93005; 93010; 99285-25

== ENCOUNTER 2020-06-16 16:27 | Emergency (ER) | payer SELFPAY ==
[2020-06-16 16:31] VITALS: TEMP 98.6; BMI 274.6
[2020-06-16] MEDS ORDERED: SODIUM CHLORIDE 1,000 ML IV STA (16:31)
[2020-06-16] MEDS ORDERED: ACETAMINOPHEN 1000 MG/100 ML VIAL (NON FORMULARY) IVPB ONE (16:31)
[2020-06-16] MEDS ORDERED: METOCLOPRAMIDE HCL INJECTION 10 MG/2 ML VIAL IVPB ONE (16:31)
--- NOTE | 2020-06-16 16:32 | PDOC ---
Rapid Medical Evaluation Time Seen by Provider: 06/16/20 16:29 Medical Evaluation: Allergies Allergy/AdvReac Type Severity Reaction Status Date / Time No Known Allergies Allergy Verified 06/16/20 16:29 10 16:29 Pt presents for evaluation of a headache on the R side for two days. Tried Tylenol with little relief of symptoms. States the pain comes and goes. Denies fevers, chills, neck pain, nausea, vomiting Exam: No gross neuro deficits, ambulatory Orders: basic labs, IV, defer imaging to provider Pt to proceed to the ER for further evaluation Discharge Disposition - Diagnosis Headache Qualifiers: Headache type: other headache syndrome Qualified Code(s): G44.89 - Other headache syndrome - Referrals - Patient Instructions - Post Discharge Activity
[2020-06-16] MEDS ORDERED: ACETAMINOPHEN 500 MG TABLET (FP) PO ONE (16:47)
--- OUTSIDE RECORDS SUMMARY | 2020-06-16 16:50 | XMS ---
:1975 Author Organization [facility] Support Name Relationship Address Phone DEMETRICE STONE [place] [address] [employer] Unavailable [address] [facility] [place] [address] GLEN DRIVER MOTHER [address] [place] [address] GLEN DRIVER Mother [address] [place] [address] Re-disclosure Warning The records that you are about to access may contain information from federally- assisted alcohol or drug abuse programs. If such information is present, then the following federally mandated warning applies: This information has been disclosed to you from records protected by federal confidentiality rules (42 CFR part 2). The federal rules prohibit you from making any further disclosure of this information unless further disclosure is expressly permitted by the written consent of the person to whom it pertains or as otherwise permitted by 42 CFR part 2. A general authorization for the release of medical or other information is NOT sufficient for this purpose. The Federal rules restrict any use of the information to criminally investigate or prosecute any alcohol or drug abuse patient.The records that you are about to access may contain highly sensitive health information, the redisclosure of which is protected by Article 27-F of the [facility] Public Health law. If you continue you may haveaccess to information: Regarding HIV / AIDS; Provided by facilities licensed or operated by the [facility] Office of Mental Health; or Provided by the [facility] Office for People With Developmental Disabilities. If such information is present, then the following [facility] mandated warning applies: This information has been disclosed to you from confidential records which are protected by state law. State law prohibits you from making any further disclosure of this information without the specific written consent of the person to whom it pertains, or as otherwise permitted by law. Any unauthorized further disclosure in violation of state law may result in a fine or fdc sentence or both. A general authorization for the release of medical or other information is NOT sufficient authorization for further disclosure. Allergies and Adverse Reactions Type Description Substance Reaction Status Data Source(s ) No Known No Known Allergies No Known eCW3 ( [place] [facility]) No Known No Known Allergies No Known eCW3 ( [place] [facility]) No Known No Known Allergies No Known eCW3 ( [place] [facility]) No Known No Known Allergies No Known eCW3 ( [place] [facility]) No Known No Known Allergies No Known eCW3 ( [place] [facility]) No Known No Known Allergies No Known eCW3 ( [place] [facility]) No Known No Known Allergies No Known eCW3 ( [place] [facility]) No Known No Known Allergies No Known eCW3 ( [place] [facility]) No Known No Known Allergies No Known eCW3 ( [place] [facility]) No Known No Known Allergies No Known eCW3 ( [place] [facility]) No Known No Known Allergies No Known eCW3 ( [place] [facility]) No Known No Known Allergies No known eCW3 ( [place] Allergies allergies [facility] (situation) [facility]) No Known No Known Allergies No known eCW3 ( [place] Allergies allergies [facility] (situation) [facility]) Encounters Encounter Providers Location Date Indications Data Source(s ) [facility] 06/12/2019 eCW3 ([facility] A28 12:00:00 AM Health Care) EDT - 06/12/2019 12:00:00 AM EDT [facility] 05/24/2019 eCW3 ([facility] A28 12:00:00 AM Health Care) EDT - 05/24/2019 12:00:00 AM EDT [facility] 05/15/2019 eCW3 ([facility] A28 12:00:00 AM Health Care) EDT - 05/15/2019 12:00:00 AM EDT [facility] 05/01/2019 eCW3 ([facility] A28 12:00:00 AM Health Care) EDT - 05/01/2019 12:00:00 AM EDT Outpatient [facility] 03/11/2019 eCW3 ([facility] A28 12:00:00 AM Health Care) EDT - 03/11/2019 12:00:00 AM EDT [facility] 02/26/2019 eCW3 ([facility] A28 12:00:00 AM Health Care) EDT - 02/26/2019 12:00:00 AM EDT [facility] 02/21/2019 eCW3 ([facility] A28 12:00:00 AM Health Care) EDT - 02/21/2019 12:00:00 AM EDT [facility] 01/08/2019 eCW3 ([facility] A28 12:00:00 AM Health Care) EDT - 01/08/2019 12:00:00 AM EDT [facility] 01/03/2019 eCW3 ([facility] A28 12:00:00 AM Health Care) EDT - 01/03/2019 12:00:00 AM EDT [facility] 12/04/2018 eCW3 ([facility] A28 12:00:00 AM Health Care) EDT - 12/04/2018 12:00:00 AM EDT [facility] 11/20/2018 eCW3 ([facility] A28 12:00:00 AM Health Care) EDT - 11/20/2018 12:00:00 AM EDT [facility] 10/26/2018 eCW3 ([facility] A28 12:00:00 AM Health Care) EST - 10/26/2018 12:00:00 AM EST [facility] 10/23/2018 eCW3 ([facility] A28 12:00:00 AM Health Care) EST - 10/23/2018 12:00:00 AM EST Immunizations Vaccine Date Status Description Data Source(s) New in 2011. IIV4 06/29/2018 completed eCW3 ([place] 03:06:00 PM [facility]) IIV3. This vaccine code 06/18/2016 completed eCW3 ([place] is one of two which 10:29:00 AM EDT [facility]) replace CVX 15, influenza, split virus. IIV3. This vaccine code 08/17/2015 completed eCW3 ([place] is one of two which 01:26:00 PM EST [facility]) replace CVX 15, influenza, split virus. IIV3. This is one of 08/05/2014 completed eCW3 ([facility] two codes replacing CVX 04:51:00 PM EST [facility]) 15, which is being retired. Medications Medication Brand Start Product Dose Route Administrative Pharmacy [facility] Indications Reaction Description Data Name Date Form Instructions Instructions Source(s) Meclizine Mecliz .0 active Meclizine eCW3 Hydrochlori ine 2019 {tabl HCl 25 MG ([facility] 25 MG HCl 25 12:00: et_as [place] Chewable MG 00 AM _need Health Tablet EDT ed} Care) Meclizine HCl 25 MG Metoclopram Reglan .0 active Reglan 10 MG eCW3 jong 10 MG 10 MG 2019 {tabl ([place] Oral Tablet 12:00: et_be [place] [Reglan] 00 AM fore_ Health Reglan 10 EDT meals Care) MG } Meclizine Mecliz .0 active Meclizine eCW3 Hydrochlori ine 2020 {tabl HCl 25 MG ([facility] 25 MG HCl 25 12:00: et_as [place] Chewable MG 00 AM _need Health Tablet EDT ed} Care) Meclizine HCl 25 MG Metoclopram Reglan .0 active Reglan 10 MG eCW3 jong 10 MG 10 MG 2019 {tabl ([place] Oral Tablet 12:00: et_be [place] [Reglan] [address] [facility]_ Health Reglan 10 EDT meals Care) MG } Meclizine Mecliz .0 active Meclizine eCW3 Hydrochlori ine 2019 {tabl HCl 25 MG ([facility] 25 MG HCl 25 12:00: et_as [place] Chewable MG 00 AM _need Health Tablet EDT ed} Care) Meclizine HCl 25 MG Ibuprofen Ibupro 03/02/ active Ibuprofen eCW3 400 MG Oral fen 2020 400 MG ([place] [facility] Tablet 400 MG 12:00: [place] 00 AM Health EDT Care) Meclizine Mecliz .0 active Meclizine eCW3 Hydrochlori ine 2020 {tabl HCl 25 MG ([facility] 25 MG HCl 25 12:00: et_as [place] Chewable MG 00 AM _need Health Tablet EDT ed} Care) Meclizine HCl 25 MG Metoclopram Reglan .0 active Reglan 10 MG eCW3 jong 10 MG 10 MG 2020 {tabl ([place] Oral Tablet 12:00: et_be [place] [Reglan] 00 AM fore_ Health Reglan 10 EDT meals Care) MG } Ibuprofen Ibupro 03/02/ active Ibuprofen eCW3 400 MG Oral fen 2020 400 MG ([place] Tablet 400 MG 12:00: [place] 00 AM Health EDT Care) Ibuprofen Ibupro 03/02/ active Ibuprofen eCW3 400 MG Oral fen 2020 400 MG ([place] Tablet 400 MG 12:00: [place] 00 AM Health EDT Care) Metoclopram Reglan .0 active Reglan 10 MG eCW3 jong 10 MG 10 MG 2019 {tabl ([place] Oral Tablet 12:00: et_be [place] [Reglan] 00 AM fore Health Reglan 10 EDT meals Care) MG } Omeprazole Omepra 05/05/ active Omeprazo le eCW3 40 MG zole 2020 40 MG ([place] Delayed 40 MG 12:00: [place] Release 00 AM Health Oral EDT Care) Capsule Omeprazole Omepra 05/05/ active Omeprazo le eCW3 40 MG zole 2020 40 MG ([place] Delayed 40 MG 12:00: [place] Release 00 AM Health Oral EDT Care) Capsule Omeprazole Omepra 05/05/ active Omeprazo le eCW3 40 MG zole 2020 40 MG ([place] Delayed 40 MG 12:00: [place] Release 00 AM Health Oral EDT Care) Capsule Omeprazole Omepra 05/05/ active Omeprazo le eCW3 40 MG zole 2020 40 MG ([place] Delayed 40 MG 12:00: [place] Release 00 AM Health Oral EDT Care) Capsule Omeprazole Omepra 05/05/ active Omeprazo le eCW3 40 MG zole 2020 40 MG ([place] Delayed 40 MG 12:00: [place] Release 00 AM Health Oral EDT Care) Capsule Omeprazole Omepra 05/05/ active Omeprazo le eCW3 40 MG zole 2020 40 MG ([place] Delayed 40 MG 12:00: [place] Release 00 AM Health Oral EDT Care) Capsule Omeprazole Omepra 01/13/ active Omeprazo le eCW3 40 MG zole 2020 40 MG ([place] Delayed 40 MG 12:00: [place] Release 00 AM Health Oral EDT Care) Capsule benzonatate Tessal .0 suspend Tessal on eCW3 100 MG Oral on 2019 {caps ed Perles 100 ( [place] Capsule Perles 12:00: ule_a MG [place] [Tessalon 100 MG 00 AM s_nee Health Perles] EDT ded} Care) Tessalon Perles 100 MG benzonatate Tessal .0 suspend Tessal on eCW3 100 MG Oral on 2019 {caps ed Perles 100 ( [place] Capsule Perles 12:00: ule_a MG [place] [Tessalon 100 MG 00 AM s_nee Health Perles] EDT ded} Care) Tessalon Perles 100 MG Azithromyci Azithr 11/06/ active Azithro mycin eCW3 n 250 MG omycin 2020 250 MG ([place] Oral Tablet 250 MG 12:00: [place] r 00 AM Health EST Care) Azithromyci Azithr 11/06/ suspend Azithr omycin eCW3 n 250 MG omycin 2020 ed 250 MG ([place] Oral Tablet 250 MG 12:00: [place] 00 AM Health EST Care) Cyclobenzap Cyclob 11/06/ active Cyclobe nzapr eCW3 rine enzapr 2020 ine HCl 10 ([place] hydrochlori ine 12:00: MG [place] de 10 MG HCl 10 00 AM Health Oral Tablet MG EST Care) Cyclobenzap rine HCl 10 MG Azithromyci Azithr 11/06/ suspend Azithr omycin eCW3 n 250 MG omycin 2020 ed 250 MG ([place] Oral Tablet 250 MG 12:00: [place] 00 AM Health EST Care) Azithromyci Azithr 11/06/ suspend Azithr omycin eCW3 n 250 MG omycin 2020 ed 250 MG ([place] Oral Tablet 250 MG 12:00: [place] 00 AM Health EST Care) Azithromyci Azithr 11/06/ suspend Azithr omycin eCW3 n 250 MG omycin 2020 ed 250 MG ([place] Oral Tablet 250 MG 12:00: [place] 00 AM Health EST Care) Azithromyci Azithr 11/06/ suspend Azithr omycin eCW3 n 250 MG omycin 2020 ed 250 MG ([place] Oral Tablet 250 MG 12:00: [place] 00 AM Health EST Care) Azithromyci Azithr 11/06/ suspend Azithr omycin eCW3 n 250 MG omycin 2020 ed 250 MG ([place] Oral Tablet 250 MG 12:00: [place] 00 AM Health EST Care) Azithromyci Azithr 11/06/ active Azithro mycin eCW3 n 250 MG omycin 2020 250 MG ([place] Oral Tablet 250 MG 12:00: [place] 00 AM Health EST Care) Azithromyci Azithr 11/06/ suspend Azithr omycin eCW3 n 250 MG omycin 2020 ed 250 MG ([place] Oral Tablet 250 MG 12:00: [place] 00 AM Health EST Care) pantoprazol Pantop 10/23/ active Pantopr azole eCW3 e 40 MG razole 2020 Sodium 40 MG ([facility] Delayed Sodium 12:00: [place] Release 40 MG 00 AM Health Oral Tablet EST Care) Pantoprazol e Sodium 40 MG pantoprazol Pantop 10/23/ active Pantopr azole eCW3 e 40 MG razole 2020 Sodium 40 MG ([facility] Delayed Sodium 12:00: [place] Release 40 MG 00 AM Health Oral Tablet EST Care) Pantoprazol e Sodium 40 MG Azithromyci Azithr 06/12/ suspend Azithr omycin eCW3 n 250 MG omycin 2019 ed 250 MG ([place] Oral Tablet 250 MG 12:00: [place] 00 AM Health EDT Care) Cepacol Cepaco 1.0 suspend Cepacol So re eCW3 Sore Throat l Sore 2018 {loze ed Throat 5.4 ([place] 5.4 MG Throat 12:00: nge_a MG [place] 5.4 MG 00 AM s_nee Health EDT ded} Care) Cepacol Cepaco 1.0 suspend Cepacol So re eCW3 Sore Throat l Sore 2018 {loze ed Throat 5.4 ([place] 5.4 MG Throat 12:00: nge_a MG [place] 5.4 MG 00 AM s_ne Health EDT ded} Care) Cepacol Cepaco .0 suspend Cepacol So re eCW3 Sore Throat l Sore 2018 {loze ed Throat 5.4 ([place] 5.4 MG Throat 12:00: nge_a MG [place] 5.4 MG 00 AM s_nee Health EDT ded} Care) Fluticasone Flutic .0 suspend Flutic asone eCW3 Propionate asone 2018 {spra ed Propionate ( [place] 50 MCG/ACT Propio 12:00: y_in_ 50 MCG/AC T [place] kem 00 AM each_ Health 50 EDT nostr Care) MCG/AC il} T Fluticasone Flutic .0 suspend Flutic asone eCW3 Propionate asone 2018 {spra ed Propionate ( [place] 50 MCG/ACT Propio 12:00: y_in_ 50 MCG/AC T [place] kem 00 AM each_ Health 50 EDT nostr Care) MCG/AC il} T Azithromyci Azithr 06/12/ suspend Azithr omycin eCW3 n 250 MG omycin 2018 ed 250 MG ([place] Oral Tablet 250 MG 12:00: [place] 00 AM Health EDT Care) Azithromyci Azithr 06/12/ suspend Azithr omycin eCW3 n 250 MG omycin 2019 ed 250 MG ([place] Oral Tablet 250 MG 12:00: [place] 00 AM Health EDT Care) Azithromyci Azithr 06/12/ suspend Azithr omycin eCW3 n 250 MG omycin 2019 ed 250 MG ([place] Oral Tablet 250 MG 12:00: [place] 00 AM Health EDT Care) Fluticasone Flutic .0 suspend Flutic asone eCW3 Propionate asone 2018 {spra ed Propionate ( [place] 50 MCG/ACT Propio 12:00: y_in_ 50 MCG/AC T [place] kem 00 AM each_ Health 50 EDT nostr Care) MCG/AC il} T Fluticasone Flutic .0 suspend Flutic asone eCW3 Propionate asone 2018 {spra ed Propionate ( [place] 50 MCG/ACT Propio 12:00: y_in_ 50 MCG/AC T [place] k[place] 00 AM each_ Health 50 EDT nostr Care) MCG/AC il} T Azithromyci Azithr 06/12/ suspend Azithr omycin eCW3 n 250 MG omycin 2018 ed 250 MG ([place] Oral Tablet 250 MG 12:00: [place] 00 AM Health EDT Care) Fluticasone Flutic .0 suspend Flutic asone eCW3 Propionate asone 2018 {spra ed Propionate ( [place] 50 MCG/ACT Propio 12:00: y_in_ 50 MCG/AC T [place] kem 00 AM each_ Health 50 EDT nostr Care) MCG/AC il} T Cepacol Cepaco .0 suspend Cepacol So re eCW3 Sore Throat l Sore 2018 {loze ed Throat 5.4 ([place] 5.4 MG Throat 12:00: nge_a MG [place] 5.4 MG 00 AM s_nee Health EDT ded} Care) Fluticasone Flutic .0 suspend Flutic asone eCW3 Propionate asone 2018 {spra ed Propionate ( [place] 50 MCG/ACT Propio 12:00: y_in_ 50 MCG/AC T [place] kem 00 AM each_ Health 50 EDT nostr Care) MCG/AC il} T Fluticasone Flutic .0 suspend Flutic asone eCW3 Propionate asone 2018 {spra ed Propionate ( [place] 50 MCG/ACT Propio 12:00: y_in_ 50 MCG/AC T [place] kem 00 AM each_ Health 50 EDT nostr Care) MCG/AC il} T Azithromyci Azithr 06/12/ suspend Azithr omycin eCW3 n 250 MG omycin 2018 ed 250 MG ([place] Oral Tablet 250 MG 12:00: [place] 00 AM Health EDT Care) Cepacol Cepaco .0 suspend Cepacol So re eCW3 Sore Throat l Sore 2018 {loze ed Throat 5.4 ([place] 5.4 MG Throat 12:00: nge_a MG [place] 5.4 MG 00 AM s_[facility] Health EDT ded} Care) Cepacol Cepaco .0 suspend Cepacol So re eCW3 Sore Throat l Sore 2018 {loze ed Throat 5.4 ([place] 5.4 MG Throat 12:00: nge_a MG [place] 5.4 MG 00 AM s_[facility] Health EDT ded} Care) Azithromyci Azithr 06/12/ suspend Azithr omycin eCW3 n 250 MG omycin 2019 ed 250 MG ([place] Oral Tablet 250 MG 12:00: [place] 00 AM Health EDT Care) Cepacol Cepaco .0 suspend Cepacol So re eCW3 Sore Throat l Sore 2018 {loze ed Throat 5.4 ([place] 5.4 MG Throat 12:00: nge_a MG [place] 5.4 MG 00 AM s_[facility] Health EDT ded} Care) Cepacol Cepaco .0 suspend Cepacol So re eCW3 Sore Throat l Sore 2018 {loze ed Throat 5.4 ([place] 5.4 MG Throat 12:00: nge_a MG [place] 5.4 MG 00 [facility] ded} Care) Fluticasone Flutic .0 suspend Flutic asone eCW3 Propionate asone 2018 {spra ed Propionate ( [place] 50 MCG/ACT Propio 12:00: y_in_ 50 MCG/AC T [place] kem 00 AM [facility] 50 EDT nostr Care) MCG/AC il} T Azithromyci Azithr 06/12/ suspend Azithr omycin eCW3 n 250 MG omycin 2019 ed 250 MG ([place] Oral Tablet 250 MG 12:00: [place] 00 AM Health EDT Care) Cepacol Cepaco .0 suspend Cepacol So re eCW3 Sore Throat l Sore 2018 {loze ed Throat 5.4 ([place] 5.4 MG Throat 12:00: nge_a MG [place] 5.4 MG 00 AM s_[facility] Health EDT ded} Care) Azithromyci Azithr 06/12/ suspend Azithr omycin eCW3 n 250 MG omycin 2019 ed 250 MG ([place] Oral Tablet 250 MG 12:00: [place] 00 AM Health EDT Care) Fluticasone Flutic 06/12/ 1.0 suspend Flutic asone eCW3 Propionate asone 2018 {spra ed Propionate ( [place] 50 MCG/ACT Propio 12:00: y_in_ 50 MCG/AC T [place] kem 00 AM [facility]_ Health 50 EDT nostr Care) MCG/AC il} T Ibuprofen Ibupro 05/24/ suspend Ibuprofe n eCW3 800 MG Oral fen 2019 ed 800 MG ([place] Tablet 800 MG 12:00: [place] 00 AM Health EDT Care) Ibuprofen Ibupro 05/24/ suspend Ibuprofe n eCW3 800 MG Oral fen 2019 ed 800 MG ([place] Tablet 800 MG 12:00: [place] 00 AM Health EDT Care) Ibuprofen Ibupro 05/24/ suspend Ibuprofe n eCW3 800 MG Oral fen 2019 ed 800 MG ([place] Tablet 800 MG 12:00: [place] 00 AM Health EDT Care) Ibuprofen Ibupro 05/24/ active Ibuprofen eCW3 800 MG Oral fen 2019 800 MG ([place] Tablet 800 MG 12:00: [place] 00 AM Health EDT Care) Ibuprofen Ibupro 05/24/ suspend Ibuprofe n eCW3 800 MG Oral fen 2019 ed 800 MG ([place] Tablet 800 MG 12:00: [place] 00 AM Health EDT Care) Ibuprofen Ibupro 05/24/ suspend Ibuprofe n eCW3 800 MG Oral fen 2019 ed 800 MG ([place] Tablet 800 MG 12:00: [place] 00 AM Health EDT Care) Ibuprofen Ibupro 05/24/ suspend Ibuprofe n eCW3 800 MG Oral fen 2019 ed 800 MG ([place] Tablet 800 MG 12:00: [place] 00 AM Health EDT Care) Ibuprofen Ibupro 05/24/ suspend Ibuprofe n eCW3 800 MG Oral fen 2019 ed 800 MG ([place] Tablet 800 MG 12:00: [place] 00 AM Health EDT Care) Ibuprofen Ibupro 05/24/ suspend Ibuprofe n eCW3 800 MG Oral fen 2019 ed 800 MG ([place] Tablet 800 MG 12:00: [place] 00 AM Health EDT Care) Ibuprofen Ibupro 05/24/ suspend Ibuprofe n eCW3 800 MG Oral fen 2019 ed 800 MG ([place] Tablet 800 MG 12:00: [place] 00 AM Health EDT Care) Meclizine Mecliz .0 active Meclizine eCW3 Hydrochlori ine 2019 {tabl HCl 25 MG ([facility] 25 MG HCl 25 12:00: et_as [place] Oral Tablet MG 00 AM _need Health Meclizine EDT ed} Care) HCl 25 MG Meclizine Mecliz .0 suspend Meclizin e eCW3 Hydrochlori ine 2019 {tabl ed HCl 25 MG ([facility] 25 MG HCl 25 12:00: et_as [place] Oral Tablet MG 00 AM _need Health Meclizine EDT ed} Care) HCl 25 MG Meclizine Mecliz .0 suspend Meclizin e eCW3 Hydrochlori ine 2019 {tabl ed HCl 25 MG ([facility] 25 MG HCl 25 12:00: et_as [place] Oral Tablet MG 00 AM _need Health Meclizine EDT ed} Care) HCl 25 MG Meclizine Mecliz .0 suspend Meclizin e eCW3 Hydrochlori ine 2019 {tabl ed HCl 25 MG ([facility] 25 MG HCl 25 12:00: et_as [place] Oral Tablet MG 00 AM _need Health Meclizine EDT ed} Care) HCl 25 MG Meclizine Mecliz .0 suspend Meclizin e eCW3 Hydrochlori ine 2019 {tabl ed HCl 25 MG ([facility] 25 MG HCl 25 12:00: et_as [place] Oral Tablet MG 00 AM _need Health Meclizine EDT ed} Care) HCl 25 MG Meclizine Mecliz .0 suspend Meclizin e eCW3 Hydrochlori ine 2018 {tabl ed HCl 25 MG ([facility] de 25 MG HCl 25 12:00: et_as [place] Oral Tablet MG 00 AM _need Health Meclizine EDT ed} Care) HCl 25 MG Meclizine Mecliz .0 suspend Meclizin e eCW3 Hydrochlori ine 2019 {tabl ed HCl 25 MG ([facility] de 25 MG HCl 25 12:00: et_as [place] Oral Tablet MG 00 AM _need Health Meclizine EDT ed} Care) HCl 25 MG Meclizine Mecliz .0 suspend Meclizin e eCW3 Hydrochlori ine 2019 {tabl ed HCl 25 MG ([facility] de 25 MG HCl 25 12:00: et_as [place] Oral Tablet MG 00 AM _need Health Meclizine EDT ed} Care) HCl 25 MG Meclizine Mecliz .0 suspend Meclizin e eCW3 Hydrochlori ine 2019 {tabl ed HCl 25 MG ([facility] de 25 MG HCl 25 12:00: et_as [place] Oral Tablet MG 00 AM _need Health Meclizine EDT ed} Care) HCl 25 MG Meclizine Mecliz .0 suspend Meclizin e eCW3 Hydrochlori ine 2019 {tabl ed HCl 25 MG ([facility] de 25 MG HCl 25 12:00: et_as [place] Oral Tablet MG 00 AM _need Health Meclizine EDT ed} Care) HCl 25 MG Flonase Flonas .0 suspend Flonase eC W3 Allergy e 2019 {spra ed Allergy ([place] Relief 50 Allerg 12:00: y_in_ Relief 50 [place] MCG/ACT y 00 AM each_ MCG/ACT Health Relief EDT nostr Care) 50 il} MCG/AC T Loratadine Lorata .0 suspend Loratad ine eCW3 10 MG Oral dine 2019 {tabl ed 10 MG ([place] Tablet 10 MG 12:00: et} [place] 00 AM Health EDT Care) Loratadine Lorata .0 suspend Loratad ine eCW3 10 MG Oral dine 2019 {tabl ed 10 MG ([place] Tablet 10 MG 12:00: et} [place] 00 AM Health EDT Care) Flonase Flonas .0 suspend Flonase eC W3 Allergy e 2019 {spra ed Allergy ([place] Relief 50 Allerg 12:00: y_in_ Relief 50 [place] MCG/ACT y 00 AM each_ MCG/ACT Health Relief EDT nostr Care) 50 il} MCG/AC T Loratadine Lorata .0 suspend Loratad ine eCW3 10 MG Oral dine 2019 {tabl ed 10 MG ([place] Tablet 10 MG 12:00: et} [place] 00 AM Health EDT Care) Flonase Flonas .0 suspend Flonase eC W3 Allergy e 2019 {spra ed Allergy ([place] Relief 50 Allerg 12:00: y_in_ Relief 50 [place] MCG/ACT y 00 AM each_ MCG/ACT Health Relief EDT nostr Care) 50 il} MCG/AC T Flonase Flonas .0 suspend Flonase eC W3 Allergy e 2019 {spra ed Allergy ([place] Relief 50 Allerg 12:00: y_in_ Relief 50 [place] MCG/ACT y 00 AM each_ MCG/ACT Health Relief EDT nostr Care) 50 il} MCG/AC T Loratadine Lorata .0 active Loratadi ne eCW3 10 MG Oral dine 2019 {tabl 10 MG ([place] Tablet 10 MG 12:00: et} [place] 00 AM Health EDT Care) Loratadine Lorata .0 suspend Loratad ine eCW3 10 MG Oral dine 2019 {tabl ed 10 MG ([place] Tablet 10 MG 12:00: et} [place] 00 AM Health EDT Care) Flonase Flonas .0 active Flonase eCW 3 Allergy e 2019 {spra Allergy ([place] Relief 50 Allerg 12:00: y_in_ Relief 50 [place] MCG/ACT y 00 AM each_ MCG/ACT Health Relief EDT nostr Care) 50 il} MCG/AC T Flonase Flonas .0 suspend Flonase eC W3 Allergy e 2019 {spra ed Allergy ([place] Relief 50 Allerg 12:00: y_in_ Relief 50 [place] MCG/ACT y 00 AM each_ MCG/ACT Health Relief EDT nostr Care) 50 il} MCG/AC T Flonase Flonas .0 suspend Flonase eC W3 Allergy e 2019 {spra ed Allergy ([place] Relief 50 Allerg 12:00: y_in_ Relief 50 [place] MCG/ACT y 00 AM each_ MCG/ACT Health Relief EDT nostr Care) 50 il} MCG/AC T Loratadine Lorata .0 suspend Loratad ine eCW3 10 MG Oral dine 2019 {tabl ed 10 MG ([place] Tablet 10 MG 12:00: et} [place] 00 AM Health EDT Care) Flonase Flonas .0 suspend Flonase eC W3 Allergy e 2019 {spra ed Allergy ([place] Relief 50 Allerg 12:00: y_in_ Relief 50 [place] MCG/ACT y 00 AM each_ MCG/ACT Health Relief EDT nostr Care) 50 il} MCG/AC T Loratadine Lorata .0 suspend Loratad ine eCW3 10 MG Oral dine 2019 {tabl ed 10 MG ([place] Tablet 10 MG 12:00: et} [place] 00 AM Health EDT Care) Flonase Flonas .0 suspend Flonase eC W3 Allergy e 2019 {spra ed Allergy ([place] Relief 50 Allerg 12:00: y_in_ Relief 50 [place] MCG/ACT y 00 AM each_ MCG/ACT Health Relief EDT nostr Care) 50 il} MCG/AC T Loratadine Lorata .0 suspend Loratad ine eCW3 10 MG Oral dine 2019 {tabl ed 10 MG ([place] Tablet 10 MG 12:00: et} [place] 00 AM Health EDT Care) Loratadine Lorata .0 suspend Loratad ine eCW3 10 MG Oral dine 2019 {tabl ed 10 MG ([place] Tablet 10 MG 12:00: et} [place] 00 AM Health EDT Care) Flonase Flonas .0 suspend Flonase eC W3 Allergy e 2019 {spra ed Allergy ([place] Relief 50 Allerg 12:00: y_in_ Relief 50 [place] MCG/ACT y 00 AM each_ MCG/ACT Health Relief EDT nostr Care) 50 il} MCG/AC T Loratadine Lorata .0 suspend Loratad ine eCW3 10 MG Oral dine 2019 {tabl ed 10 MG ([place] Tablet 10 MG 12:00: et} [place] 00 AM [facility] EDT Care) Fluconazole Difluc 03/11/ suspend Difluc an 150 eCW3 150 MG Oral an 150 2019 ed MG ([place] Tablet MG 12:00: [place] [Diflucan] 00 AM [facility] EDT Care) 150 MG Hydrocortis Hydroc .0 active Hydroco rtiso eCW3 one 2018 {appl ne 2.5 % ([place] MG/ML ne 2.5 12:00: icati [place] Topical % 00 AM on_to Health Cream EDT _affe Care) Hydrocortis cted_ one 2.5 % area} Hydrocortis Hydroc .0 suspend Hydroc ortiso eCW3 one 2018 {appl ed ne 2.5 % ([facility] [facility] MG/ML ne 2.5 12:00: icati [place] Topical % 00 AM on_to Health Cream EDT _affe Care) Hydrocortis cted_ one 2.5 % area} Fluconazole Difluc 03/11/ suspend Difluc an 150 eCW3 150 MG Oral an 150 2018 ed MG ([place] [facility] Tablet MG 12:00: [place] [Diflucan] 00 AM [facility] EDT Care) 150 MG Fluconazole Difluc 03/11/ active Difluca n 150 eCW3 150 MG Oral an 150 2019 MG ([place] Tablet MG 12:00: [place] [Diflucan] 00 AM [facility] EDT Care) 150 MG Hydrocortis Hydroc .0 suspend Hydroc ortiso eCW3 one 2018 {appl ed ne 2.5 % ([place] MG/ML ne 2.5 12:00: icati [place] Topical % 00 AM on_to Health Cream EDT _affe Care) Hydrocortis cted_ one 2.5 % area} Fluconazole Difluc // suspend Difluc an 150 eCW3 150 MG Oral an 150 2019 ed MG ([place] Tablet MG 12:00: [place] [Diflucan] 00 AM [facility] EDT Care) 150 MG Fluconazole Difluc 03/11/ suspend Difluc an 150 eCW3 150 MG Oral an 150 2019 ed MG ([place] Tablet MG 12:00: [place] [Diflucan] 00 AM [facility] Diflucan EDT Care) 150 MG Fluconazole Difluc 03/11/ suspend Difluc an 150 eCW3 150 MG Oral an 150 2019 ed MG ([place] Tablet MG 12:00: [place] [Diflucan] 00 AM Health Diflucan EDT Care) 150 MG Hydrocortis Hydroc .0 suspend Hydroc ortiso eCW3 one 2018 {appl ed ne 2.5 % ([place] MG/ML ne 2.5 12:00: icati [place] Topical % 00 AM on_to Health Cream EDT _affe Care) Hydrocortis cted_ one 2.5 % area} Hydrocortis Hydroc .0 suspend Hydroc ortiso eCW3 one 2018 {appl ed ne 2.5 % ([place] MG/ML ne 2.5 12:00: icati [place] Topical % 00 AM on_to Health Cream EDT _affe Care) Hydrocortis cted_ one 2.5 % area} Fluconazole Difluc 03/11/ suspend Difluc an 150 eCW3 150 MG Oral an 150 2019 ed MG ([place] Tablet MG 12:00: [place] [Diflucan] 00 AM Health Diflucan EDT Care) 150 MG Hydrocortis Hydroc .0 suspend Hydroc ortiso eCW3 one 2018 {appl ed ne 2.5 % ([place] MG/ML ne 2.5 12:00: icati [place] Topical % 00 AM on_to Health Cream EDT _affe Care) Hydrocortis cted_ one 2.5 % area} Hydrocortis Hydroc .0 suspend Hydroc ortiso eCW3 one 2018 {appl ed ne 2.5 % ([place] MG/ML ne 2.5 12:00: icati [place] Topical % 00 AM on_to Health Cream EDT _affe Care) Hydrocortis cted_ one 2.5 % area} Hydrocortis Hydroc .0 suspend Hydroc ortiso eCW3 one 2018 {appl ed ne 2.5 % ([place] MG/ML ne 2.5 12:00: icati [place] Topical % 00 AM on_to Health Cream EDT _affe Care) Hydrocortis cted_ one 2.5 % area} Hydrocortis Hydroc .0 suspend Hydroc ortiso eCW3 one 2018 {appl ed ne 2.5 % ([place] MG/ML ne 2.5 12:00: icati [place] Topical % 00 AM on_to Health Cream EDT _affe Care) Hydrocortis cted_ one 2.5 % area} Hydrocortis Hydroc .0 suspend Hydroc ortiso eCW3 one 2018 {appl ed ne 2.5 % ([place] MG/ML ne 2.5 12:00: icati [place] Topical % 00 AM on_to Health Cream EDT _affe Care) Hydrocortis cted_ one 2.5 % area} Fluconazole Difluc 03/11/ suspend Difluc an 150 eCW3 150 MG Oral an 150 2018 ed MG ([place] Tablet MG 12:00: [place] [Diflucan] 00 AM [facility] EDT Care) 150 MG Hydrocortis Hydroc .0 suspend Hydroc ortiso eCW3 one 2018 {appl ed ne 2.5 % ([place] MG/ML ne 2.5 12:00: icati [place] Topical % 00 AM on_to Health Cream EDT _affe Care) Hydrocortis cted_ one 2.5 % area} Fluconazole Difluc 03/11/ suspend Difluc an 150 eCW3 150 MG Oral an 150 2018 ed MG ([place] Tablet MG 12:00: [place] [Diflucan] 00 AM Health [facility] EDT Care) 150 MG Fluconazole Difluc 03/11/ suspend Difluc an 150 eCW3 150 MG Oral an 150 2018 ed MG ([place] Tablet MG 12:00: [place] [Diflucan] 00 AM [facility] EDT Care) 150 MG Fluconazole Difluc 03/11/ suspend Difluc an 150 eCW3 150 MG Oral an 150 2019 ed MG ([place] Tablet MG 12:00: [place] [Diflucan] 00 AM Health [facility] EDT Care) 150 MG Ibuprofen Ibupro 02/26/ suspend Ibuprofe n eCW3 800 MG Oral fen 2019 ed 800 MG ([place] Tablet 800 MG 12:00: [place] 00 AM Health EDT Care) Ibuprofen Ibupro 02/26/ suspend Ibuprofe n eCW3 800 MG Oral fen 2019 ed 800 MG ([place] Tablet 800 MG 12:00: [place] 00 AM Health EDT Care) Ibuprofen Ibupro 02/26/ suspend Ibuprofe n eCW3 800 MG Oral fen 2019 ed 800 MG ([place] Tablet 800 MG 12:00: [place] 00 AM Health EDT Care) Ibuprofen Ibupro 02/26/ suspend Ibuprofe n eCW3 800 MG Oral fen 2019 ed 800 MG ([place] Tablet 800 MG 12:00: [place] 00 AM Health EDT Care) Ibuprofen Ibupro 02/26/ suspend Ibuprofe n eCW3 800 MG Oral fen 2019 ed 800 MG ([place] Tablet 800 MG 12:00: [place] 00 Health EDT Care) Ibuprofen Ibupro 02/26/ suspend Ibuprofe n eCW3 800 MG Oral fen 2019 ed 800 MG ([place] Tablet 800 MG 12:00: [place] 00 AM Health EDT Care) Ibuprofen Ibupro 02/26/ suspend Ibuprofe n eCW3 800 MG Oral fen 2019 ed 800 MG ([place] Tablet 800 MG 12:00: [place] 00 AM Health EDT Care) Ibuprofen Ibupro 02/26/ suspend Ibuprofe n eCW3 800 MG Oral fen 2019 ed 800 MG ([place] Tablet 800 MG 12:00: [place] 00 AM Health EDT Care) Ibuprofen Ibupro 02/26/ suspend Ibuprofe n eCW3 800 MG Oral fen 2019 ed 800 MG ([place] Tablet 800 MG 12:00: [place] 00 AM Health EDT Care) Ibuprofen Ibupro 02/26/ suspend Ibuprofe n eCW3 800 MG Oral fen 2019 ed 800 MG ([place] Tablet 800 MG 12:00: [place] 00 AM Health EDT Care) Ibuprofen Ibupro 02/26/ suspend Ibuprofe n eCW3 800 MG Oral fen 2019 ed 800 MG ([place] Tablet 800 MG 12:00: [place] 00 AM Health EDT Care) pantoprazol Pantop 05/05/ 1.0 suspend Pantop razole eCW3 e 40 MG razole 2019 {tabl ed Sodium 40 MG ( [place] Delayed Sodium 12:00: et} [place] Release 40 MG 00 AM Health Oral Tablet EDT Care) Pantoprazol e Sodium 40 MG pantoprazol Pantop 05/05/ 1.0 suspend Pantop razole eCW3 e 40 MG razole 2019 {tabl ed Sodium 40 MG ( [place] Delayed Sodium 12:00: et} [place] Release 40 MG 00 AM Health Oral Tablet EDT Care) Pantoprazol e Sodium 40 MG pantoprazol Pantop 05/05/ 1.0 suspend Pantop razole eCW3 e 40 MG razole 2019 {tabl ed Sodium 40 MG ( [place] Delayed Sodium 12:00: et} [place] Release 40 MG 00 AM Health Oral Tablet EDT Care) Pantoprazol e Sodium 40 MG pantoprazol Pantop 01/13/ 1.0 suspend Pantop razole eCW3 e 40 MG razole 2019 {tabl ed Sodium 40 MG ( [place] Delayed Sodium 12:00: et} [place] Release 40 MG 00 AM Health Oral Tablet EDT Care) Pantoprazol e Sodium 40 MG pantoprazol Pantop 01/13/ 1.0 suspend Pantop razole eCW3 e 40 MG razole 2019 {tabl ed Sodium 40 MG ( [place] Delayed Sodium 12:00: et} [place] Release 40 MG 00 AM Health Oral Tablet EDT Care) Pantoprazol e Sodium 40 MG pantoprazol Pantop 01/13/ 1.0 suspend Pantop razole eCW3 e 40 MG razole 2019 {tabl ed Sodium 40 MG ( [place] Delayed Sodium 12:00: et} [place] Release 40 MG 00 AM Health Oral Tablet EDT Care) Pantoprazol e Sodium 40 MG pantoprazol Pantop 01/13/ 1.0 suspend Pantop razole eCW3 e 40 MG razole 2019 {tabl ed Sodium 40 MG ( [place] Delayed Sodium 12:00: et} [place] Release 40 MG 00 AM Health Oral Tablet EDT Care) Pantoprazol e Sodium 40 MG pantoprazol Pantop 0505/ 1.0 suspend Pantop razole eCW3 e 40 MG razole 2019 {tabl ed Sodium 40 MG ( [place] Delayed Sodium 12:00: et} [place] Release 40 MG 00 AM Health Oral Tablet EDT Care) Pantoprazol e Sodium 40 MG pantoprazol Pantop 05/05/ 1.0 suspend Pantop razole eCW3 e 40 MG razole 2019 {tabl ed Sodium 40 MG ( [place] Delayed Sodium 12:00: et} [place] Release 40 MG 00 AM Health Oral Tablet EDT Care) Pantoprazol e Sodium 40 MG pantoprazol Pantop .0 suspend Pantop razole eCW3 e 40 MG razole 2019 {tabl ed Sodium 40 MG ( [place] Delayed Sodium 12:00: et} [place] Release 40 MG 00 AM Health Oral Tablet EDT Care) Pantoprazol e Sodium 40 MG pantoprazol Pantop .0 suspend Pantop razole eCW3 e 40 MG razole 2019 {tabl ed Sodium 40 MG ( [place] Delayed Sodium 12:00: et} [place] Release 40 MG 00 AM Health Oral Tablet EDT Care) Pantoprazol e Sodium 40 MG Ranitidine Zantac .0 suspend Zantac 150 eCW3 150 MG Oral 150 2019 {tabl ed Maximum ([facility] Tablet Maximu 12:00: et_at Strength 150 [place] [Zantac] m 00 AM _bedt MG Health Zantac 150 Streng EDT jamal} Care) Maximum th 150 Strength MG 150 MG Diclofenac Diclof 01/08/ suspend Diclofe nac eCW3 Sodium 0.01 2018 ed Sodium 1 % ([facility] MG/MG Sodium 12:00: [place] Topical Gel 1 % 00 AM Health Diclofenac EDT Care) Sodium 1 % Diclofenac Diclof 01/08/ suspend Diclofe nac eCW3 Sodium 0.01 2018 ed Sodium 1 % ([place] [facility] MG/MG Sodium 12:00: [place] Topical Gel 1 % 00 AM Health Diclofenac EDT Care) Sodium 1 % Ranitidine Zantac .0 suspend Zantac 150 eCW3 150 MG Oral 150 2018 {tabl ed Maximum ([facility] Tablet Maximu 12:00: et_at Strength 150 [place] [Zantac] m 00 AM _bedt MG Health Zantac 150 Streng EDT jamal} Care) Maximum th 150 Strength MG 150 MG Diclofenac Diclof 01/08/ suspend Diclofe nac eCW3 Sodium 0.01 2018 ed Sodium 1 % ([place] [facility] MG/MG Sodium 12:00: [place] Topical Gel 1 % 00 AM Health Diclofenac EDT Care) Sodium 1 % Ranitidine Zantac 04/30/ 1.0 suspend Zantac 150 eCW3 150 MG Oral 150 2019 {tabl ed Maximum ([facility] Tablet Maximu 12:00: et_at Strength 150 [place] [Zantac] m 00 AM _bedt MG Health Zantac 150 Streng EDT jamal} Care) Maximum th 150 Strength MG 150 MG Diclofenac Diclof 01/08/ suspend Diclofe nac eCW3 Sodium 0.01 2018 ed Sodium 1 % ([place] [facility] MG/MG Sodium 12:00: [place] Topical Gel 1 % 00 AM Health Diclofenac EDT Care) Sodium 1 % Diclofenac Diclof 01/08/ suspend Diclofe nac eCW3 Sodium 0.01 2018 ed Sodium 1 % ([place] [facility] MG/MG Sodium 12:00: [place] Topical Gel 1 % 00 AM Health Diclofenac EDT Care) Sodium 1 % Diclofenac Diclof 01/08/ suspend Diclofe nac eCW3 Sodium 0.01 2018 ed Sodium 1 % ([place] [facility] MG/MG Sodium 12:00: [place] Topical Gel 1 % 00 AM Health Diclofenac EDT Care) Sodium 1 % Ranitidine Zantac 1.0 suspend Zantac 150 eCW3 150 MG Oral 150 2018 {tabl ed Maximum ([facility] Tablet Maximu 12:00: et_at Strength 150 [place] [Zantac] m 00 AM _bedt MG Health Zantac 150 Streng EDT jamal} Care) Maximum th 150 Strength MG 150 MG Diclofenac Diclof 01/08/ suspend Diclofe nac eCW3 Sodium 0.01 2018 ed Sodium 1 % ([facility] MG/MG Sodium 12:00: [place] Topical Gel 1 % 00 AM Health Diclofenac EDT Care) Sodium 1 % Ranitidine Zantac 1.0 suspend Zantac 150 eCW3 150 MG Oral 150 2018 {tabl ed Maximum ([facility] Tablet Maximu 12:00: et_at Strength 150 [place] [Zantac] m 00 AM _bedt MG Health Zantac 150 Streng EDT jamal} Care) Maximum th 150 Strength MG 150 MG Diclofenac Diclof 01/08/ suspend Diclofe nac eCW3 Sodium 0.01 2018 ed Sodium 1 % ([place] [facility] MG/MG Sodium 12:00: [place] Topical Gel 1 % 00 AM Health Diclofenac EDT Care) Sodium 1 % Ranitidine Zantac .0 suspend Zantac 150 eCW3 150 MG Oral 150 2019 {tabl ed Maximum ([facility] Tablet Maximu 12:00: et_at Strength 150 [place] [Zantac] m 00 AM _bedt MG Health Zantac 150 Streng EDT jamal} Care) Maximum th 150 Strength MG 150 MG Ranitidine Zantac .0 suspend Zantac 150 eCW3 150 MG Oral 150 2019 {tabl ed Maximum ([facility] Tablet Maximu 12:00: et_at Strength 150 [place] [Zantac] m 00 AM _bedt MG Health Zantac 150 Streng EDT jamal} Care) Maximum th 150 Strength MG 150 MG Zantac 150 UNK .0 suspend Zantac 15 0 eCW3 Maximum 2019 {tabl ed Maximum ([place] Strength 12:00: et_at Strength 150 [place] 150 MG 00 AM _bedt MG Health EDT jamal} Care) Diclofenac Diclof 01/08/ suspend Diclofe nac eCW3 Sodium 0.01 2018 ed Sodium 1 % ([place] MG/MG Sodium 12:00: [place] Topical Gel 1 % 00 AM Health Diclofenac EDT Care) Sodium 1 % Diclofenac Diclof 01/08/ suspend Diclofe nac eCW3 Sodium 0.01 2018 ed Sodium 1 % ([place] [facility] MG/MG Sodium 12:00: [place] Topical Gel 1 % 00 AM Health Diclofenac EDT Care) Sodium 1 % Zantac 150 UNK .0 suspend Zantac 15 0 eCW3 Maximum 2019 {tabl ed Maximum ([place] Strength 12:00: et_at Strength 150 [place] 150 MG 00 AM _bedt MG Health EDT jamal} Care) Zantac 150 UNK .0 suspend Zantac 15 0 eCW3 Maximum 2019 {tabl ed Maximum ([place] Strength 12:00: et_at Strength 150 [place] 150 MG 00 AM _bedt MG Health EDT jamal} Care) Ranitidine Zantac .0 suspend Zantac 150 eCW3 150 MG Oral 150 2019 {tabl ed Maximum ([facility] Tablet Maximu 12:00: et_at Strength 150 [place] [Zantac] m 00 AM _bedt MG Health Zantac 150 Streng EDT jamal} Care) Maximum th 150 Strength MG 150 MG Diclofenac Diclof 01/08/ suspend Diclofe nac eCW3 Sodium 0.01 enac 2019 ed Sodium 1 % ([place] [facility] MG/MG Sodium 12:00: [place] Topical Gel 1 % 00 AM Health Diclofenac EDT Care) Sodium 1 % Mometasone Mometa .0 suspend Mometas one eCW3 Furoate 50 2018 {spra ed Furoate 50 ([facility] MCG/ACT Furoat 12:00: ys_in MCG/ACT [place] r e 50 00 AM _each Health MCG/AC EDT _nost Care) T ril} Mometasone Mometa .0 suspend Mometas one eCW3 Furoate 50 2018 {spra ed Furoate 50 ([place] [facility] MCG/ACT Furoat 12:00: ys_in MCG/ACT [place] r e 50 00 AM _each Health MCG/AC EDT _nost Care) T ril} Mometasone Mometa .0 suspend Mometas one eCW3 Furoate 50 2018 {spra ed Furoate 50 ([place] [facility] MCG/ACT Furoat 12:00: ys_in MCG/ACT [place] r e 50 00 AM _each Health MCG/AC EDT _nost Care) T ril} Mometasone Mometa .0 suspend Mometas one eCW3 Furoate 50 2018 {spra ed Furoate 50 ([place] [facility] MCG/ACT Furoat 12:00: ys_in MCG/ACT [place] r e 50 00 AM _each Health MCG/AC EDT _nost Care) T ril} Mometasone Mometa .0 suspend Mometas one eCW3 Furoate 50 2018 {spra ed Furoate 50 ([facility] MCG/ACT Furoat 12:00: ys_in MCG/ACT Rive r e 50 00 AM _each Health MCG/AC EDT _nost Care) T ril} Mometasone Mometa 03/26/ 2.0 suspend Mometas one eCW3 Furoate 50 2018 {spra ed Furoate 50 ([place] [facility] MCG/ACT Furoat 12:00: ys_in MCG/ACT [place]ive r e 50 00 AM _each Health MCG/AC EDT _nost Care) T ril} Mometasone Mometa .0 suspend Mometas one eCW3 Furoate 50 2018 {spra ed Furoate 50 ([facility] MCG/ACT Furoat 12:00: ys_in MCG/ACT Rive r e 50 00 AM _each Health MCG/AC EDT _nost Care) T ril} Mometasone Mometa .0 suspend Mometas one eCW3 Furoate 50 2018 {spra ed Furoate 50 ([facility] MCG/ACT Furoat 12:00: ys_in MCG/ACT Rive r e 50 00 AM _each Health MCG/AC EDT _nost Care) T ril} Mometasone Mometa .0 suspend Mometas one eCW3 Furoate 50 2018 {spra ed Furoate 50 ([facility] MCG/ACT Furoat 12:00: ys_in MCG/ACT Rive r e 50 00 AM _each Health MCG/AC EDT _nost Care) T ril} Mometasone Mometa .0 suspend Mometas one eCW3 Furoate 50 2018 {spra ed Furoate 50 ([facility] MCG/ACT Furoat 12:00: ys_in MCG/ACT Rive r e 50 00 AM _each Health MCG/AC EDT _nost Care) T ril} Mometasone Mometa .0 suspend Mometas one eCW3 Furoate 50 2018 {spra ed Furoate 50 ([facility] MCG/ACT Furoat 12:00: ys_in MCG/ACT Rive r e 50 00 AM _each Health MCG/AC EDT _nost Care) T ril} Ergocalcife Ergoca .0 suspend Ergoca lcifer eCW3 rol [id number] lcifer 2018 {[place] [id number] ([facility] UNT Oral ol 12:00: ule} UNIT [place] Capsule [id number] 00 AM Health Ergocalcife UNIT EDT Care) rol [id number] UNIT Omeprazole Omepra .0 active Omeprazo le eCW3 40 MG zole 2019 {caps 40 mg ([place] Delayed 40 mg 12:00: ule} [place] Release 00 AM Health Oral EST Care) Capsule Omeprazole 40 mg Omeprazole Omepra .0 active Omeprazo le eCW3 40 MG zole 2018 {caps 40 mg ([place] Delayed 40 mg 12:00: ule} [place] Release 00 AM Health Oral EST Care) Capsule Omeprazole 40 mg Flonase 50 Flonas .0 suspend Flonase 50 eCW3 MCG/ACT e 50 2017 {spra ed MCG/ACT ([place] MCG/AC 12:00: y_in_ [place] T 00 AM each_ Health EST nostr Care) il} Omeprazole Omepra .0 suspend Omepraz ole eCW3 20 MG zole 2017 {caps ed 20 MG ([place] Delayed 20 MG 12:00: ule} [place] Release 00 AM Health Oral EST Care) Capsule Flonase 50 Flonas 1.0 suspend Flonase 50 eCW3 MCG/ACT e 50 2017 {spra ed MCG/ACT ([place] MCG/AC 12:00: y_in_ [place] T 00 AM each_ Health EST nostr Care) [place]} Omeprazole Omepra .0 suspend Omepraz ole eCW3 20 MG zole 2017 {caps ed 20 MG ([place] Delayed 20 MG 12:00: ule} [place] Release 00 AM Health Oral EST Care) Capsule Flonase 50 Flonas 1.0 suspend Flonase 50 eCW3 MCG/ACT e 50 2017 {spra ed MCG/ACT ([place] MCG/AC 12:00: y_in_ [place] T 00 AM each_ Health EST nostr Care) il} Flonase 50 Flonas 1.0 suspend Flonase 50 eCW3 MCG/ACT e 50 2017 {spra ed MCG/ACT ([place] MCG/AC 12:00: y_in_ [place] T 00 AM each_ Health EST nostr Care) il} Flonase 50 Flonas 1.0 suspend Flonase 50 eCW3 MCG/ACT e 50 2018 {spra ed MCG/ACT ([place] MCG/AC 12:00: y_in_ [place] T 00 AM each_ Health EST nostr Care) il} Flonase 50 Flonas .0 suspend Flonase 50 eCW3 MCG/ACT e 50 2018 {spra ed MCG/ACT ([place] MCG/AC 12:00: y_in_ [place] T 00 AM each_ Health EST nostr Care) il} Omeprazole Omepra .0 suspend Omepraz ole eCW3 20 MG zole 2018 {caps ed 20 MG ([place] Delayed 20 MG 12:00: ule} [place] Release 00 AM Health Oral EST Care) Capsule Omeprazole Omepra .0 suspend Omepraz ole eCW3 20 MG zole 2018 {caps ed 20 MG ([place] Delayed 20 MG 12:00: ule} [place] Release 00 AM Health Oral EST Care) Capsule Flonase 50 Flonas .0 suspend Flonase 50 eCW3 MCG/ACT e 50 2018 {spra ed MCG/ACT ([place] MCG/AC 12:00: y_in_ [place] T 00 AM each_ Health EST nostr Care) il} Flonase 50 Flonas .0 suspend Flonase 50 eCW3 MCG/ACT e 50 2018 {spra ed MCG/ACT ([place] MCG/AC 12:00: y_in_ [place] T 00 AM each_ Health EST nostr Care) il} Flonase 50 Flonas .0 suspend Flonase 50 eCW3 MCG/ACT e 50 2017 {spra ed MCG/ACT ([place] MCG/AC 12:00: y_in_ [place] T 00 AM each_ Health EST nostr Care) il} Omeprazole Omepra .0 suspend Omepraz ole eCW3 20 MG zole 2018 {caps ed 20 MG ([place] Delayed 20 MG 12:00: ule} [place] Release 00 AM Health Oral EST Care) Capsule Omeprazole Omepra .0 suspend Omepraz ole eCW3 20 MG zole 2018 {caps ed 20 MG ([place] Delayed 20 MG 12:00: ule} [place] Release 00 AM Health Oral EST Care) Capsule Omeprazole Omepra .0 suspend Omepraz ole eCW3 20 MG zole 2018 {caps ed 20 MG ([place] Delayed 20 MG 12:00: ule} [place] Release 00 AM Health Oral EST Care) Capsule Simethicone Simeth .0 suspend Simeth icone eCW3 125 MG icone 2017 {tabl ed 125 MG ([place] 125 MG 12:00: et_af [place] 00 AM ter_m Health EST eals_ Care) and_a t_bed time_ as_ne eded} Omeprazole Omepra .0 suspend Omepraz ole eCW3 20 MG zole 2017 {caps ed 20 MG ([place] Delayed 20 MG 12:00: ule} [place] Release 00 AM Health Oral EST Care) Capsule Flonase 50 Flonas .0 suspend Flonase 50 eCW3 MCG/ACT e 50 2017 {spra ed MCG/ACT ([place] MCG/AC 12:00: y_in_ [place] T 00 AM each_ Health EST nostr Care) il} Flonase 50 Flonas .0 suspend Flonase 50 eCW3 MCG/ACT e 50 2017 {spra ed MCG/ACT ([place] MCG/AC 12:00: y_in_ [place] T 00 AM each_ Health EST nostr Care) il} Omeprazole Omepra .0 suspend Omepraz ole eCW3 20 MG zole 2018 {caps ed 20 MG ([place] Delayed 20 MG 12:00: ule} [place] Release 00 AM Health Oral EST Care) Capsule Omeprazole Omepra .0 suspend Omepraz ole eCW3 20 MG zole 2018 {caps ed 20 MG ([place] Delayed 20 MG 12:00: ule} [place] Release 00 AM Health Oral EST Care) Capsule Flonase 50 Flonas .0 suspend Flonase 50 eCW3 MCG/ACT e 50 2017 {spra ed MCG/ACT ([place] MCG/AC 12:00: y_in_ [place] T 00 AM each_ Health EST nostr Care) il} Flonase 50 Flonas .0 suspend Flonase 50 eCW3 MCG/ACT e 50 2018 {spra ed MCG/ACT ([place] MCG/AC 12:00: y_in_ [place] T 00 AM each_ Health EST nostr Care) il} Omeprazole Omepra .0 suspend Omepraz ole eCW3 20 MG zole 2018 {caps ed 20 MG ([place] Delayed 20 MG 12:00: ule} [place] Release 00 AM Health Oral EST Care) Capsule Omeprazole Omepra .0 suspend Omepraz ole eCW3 20 MG zole 2018 {caps ed 20 MG ([place] Delayed 20 MG 12:00: ule} [place] Release 00 AM Health Oral EST Care) Capsule Omeprazole Omepra .0 suspend Omepraz ole eCW3 20 MG zole 2018 {caps ed 20 MG ([place] Delayed 20 MG 12:00: ule} [place] Release 00 AM Health Oral EST Care) Capsule DiphenhydrA UNK .0 suspend Diphenhy drAM eCW3 MINE HCl 2 2018 {appl ed INE HCl 2 % ( [place] % 12:00: icati [place] 00 AM on_to Health EDT _affe Care) cted_ area_ as_ne eded} DiphenhydrA UNK .0 suspend Diphenhy drAM eCW3 MINE HCl 2 2018 {appl ed INE HCl 2 % ( [place] % 12:00: icati [place] 00 AM on_to Health EDT _affe Care) cted_ area_ as_ne eded} DiphenhydrA UNK .0 suspend Diphenhy drAM eCW3 MINE HCl 2 2018 {appl ed INE HCl 2 % ( [place] % 12:00: icati [place] 00 AM on_to Health EDT _affe Care) cted_ area_ as_ne eded} DiphenhydrA UNK .0 suspend Diphenhy drAM eCW3 MINE HCl 2 2018 {appl ed INE HCl 2 % ( [place] % 12:00: icati [place] 00 AM on_to Health EDT _affe Care) cted_ area_ as_ne eded} DiphenhydrA UNK .0 suspend Diphenhy drAM eCW3 MINE HCl 2 2018 {appl ed INE HCl 2 % ( [place] % 12:00: icati [place] 00 AM on_to Health EDT _affe Care) cted_ area_ as_ne eded} DiphenhydrA UNK .0 suspend Diphenhy drAM eCW3 MINE HCl 2 2018 {appl ed INE HCl 2 % ( [place] % 12:00: icati [place] 00 AM on_to Health EDT _affe Care) cted_ area_ as_ne eded} DiphenhydrA UNK .0 suspend Diphenhy drAM eCW3 MINE HCl 2 2018 {appl ed INE HCl 2 % ( [place] % 12:00: icati [place] 00 AM on_to Health EDT _affe Care) cted_ area_ as_ne eded} DiphenhydrA UNK .0 suspend Diphenhy drAM eCW3 MINE HCl 2 2018 {appl ed INE HCl 2 % ( [place] % 12:00: icati [place] 00 AM on_to Health EDT _affe Care) cted_ area_ as_ne eded} DiphenhydrA UNK .0 suspend Diphenhy drAM eCW3 MINE HCl 2 2018 {appl ed INE HCl 2 % ( [place] % 12:00: icati [place] 00 AM on_to Health EDT _affe Care) cted_ area_ as_ne eded} DiphenhydrA UNK .0 suspend Diphenhy drAM eCW3 MINE HCl 2 2018 {appl ed INE HCl 2 % ( [place] % 12:00: icati [place] 00 AM on_to Health EDT _affe Care) cted_ area_ as_ne eded} DiphenhydrA UNK .0 suspend Diphenhy drAM eCW3 MINE HCl 2 2018 {appl ed INE HCl 2 % ( [place] % 12:00: icati [place] 00 AM on_to Health EDT _affe Care) cted_ area_ as_ne eded} DiphenhydrA UNK .0 suspend Diphenhy drAM eCW3 MINE HCl 2 2018 {appl ed INE HCl 2 % ( [place] % 12:00: icati [place] 00 AM on_to Health EDT _affe Care) cted_ area_ as_ne eded} DiphenhydrA UNK 06/29/ 1.0 suspend Diphenhy drAM eCW3 MINE HCl 2 2018 {appl ed INE HCl 2 % ( [place] % 12:00: icati [place] 00 AM on_to Health EDT _affe Care) cted_ area_ as_ne eded} Ibuprofen Ibupro 05/23/ suspend Ibuprofe n eCW3 600 MG Oral fen 2018 ed 600 MG ([place] Tablet 600 MG 12:00: [place] 00 AM Health EDT Care) Ibuprofen Ibupro 05/23/ suspend Ibuprofe n eCW3 600 MG Oral fen 2018 ed 600 MG ([place] Tablet 600 MG 12:00: [place] 00 AM Health EDT Care) Ibuprofen Ibupro 05/23/ suspend Ibuprofe n eCW3 600 MG Oral fen 2018 ed 600 MG ([place] Tablet 600 MG 12:00: [place] 00 AM Health EDT Care) Ibuprofen Ibupro 05/23/ suspend Ibuprofe n eCW3 600 MG Oral fen 2018 ed 600 MG ([place] Tablet 600 MG 12:00: [place] 00 AM Health EDT Care) Ibuprofen Ibupro 05/23/ suspend Ibuprofe n eCW3 600 MG Oral fen 2018 ed 600 MG ([place] Tablet 600 MG 12:00: [place] 00 AM Health EDT Care) Ibuprofen Ibupro 05/23/ suspend Ibuprofe n eCW3 600 MG Oral fen 2018 ed 600 MG ([place] Tablet 600 MG 12:00: [place] 00 AM Health EDT Care) Ibuprofen Ibupro 05/23/ suspend Ibuprofe n eCW3 600 MG Oral fen 2018 ed 600 MG ([place] Tablet 600 MG 12:00: [place] 00 AM Health EDT Care) Ibuprofen Ibupro 05/23/ suspend Ibuprofe n eCW3 600 MG Oral fen 2018 ed 600 MG ([place] Tablet 600 MG 12:00: [place] 00 AM [facility]T [facility]) Ibuprofen Ibupro 05/23/ suspend Ibuprofe n eCW3 600 MG Oral fen 2018 ed 600 MG ([place] Tablet 600 MG 12:00: [place] 00 AM [facility]T [facility]) Ibuprofen Ibupro 05/23/ suspend Ibuprofe n eCW3 600 MG Oral fen 2018 ed 600 MG ([place] Tablet 600 MG 12:00: [place] 00 AM [facility] EDT Care) Ibuprofen Ibupro 05/23/ suspend Ibuprofe n eCW3 600 MG Oral fen 2018 ed 600 MG ([place] Tablet 600 MG 12:00: [place] 00 AM [facility] EDT Care) Ibuprofen Ibupro 05/23/ suspend Ibuprofe n eCW3 600 MG Oral fen 2018 ed 600 MG ([place] Tablet 600 MG 12:00: [place] 00 AM [facility] EDT Care) Ibuprofen Ibupro 05/23/ suspend Ibuprofe n eCW3 600 MG Oral fen 2018 ed 600 MG ([place] Tablet 600 MG 12:00: [place] 00 AM [facility] EDT Care) Loratadine Clarit 04/12/ 1.0 suspend Clariti n 10 eCW3 10 MG Oral in 2017 {tabl ed mg ([place] Tablet mg 12:00: et} [place] [Claritin] 00 AM [place] [id number] EDT [facility]) mg Claritin 10 Clarit 1.0 suspend Clarit in 10 eCW3 mg in 2017 {tabl ed mg ([place] mg 12:00: et} [place] 00 AM [facility] EDT Care) Loratadine Clarit 1.0 suspend Clariti n 10 eCW3 10 MG Oral in 2017 {tabl ed mg ([place] Tablet mg 12:00: et} [place] [Claritin] 00 [address] [facility]) mg Loratadine Clarit 1.0 suspend Clariti n 10 eCW3 10 MG Oral in 2017 {tabl ed mg ([place] Tablet mg 12:00: et} [place] [Claritin] 00 AM [place] [id number] EDT [facility]) mg Loratadine Clarit 04/12/ 1.0 suspend Clariti n 10 eCW3 10 MG Oral in 2017 {tabl ed mg ([place] Tablet mg 12:00: et} [place] [Claritin] 00 [address] [facility]) mg Loratadine Clarit 04/12/ 1.0 suspend Clariti n 10 eCW3 10 MG Oral in 2017 {tabl ed mg ([place] Tablet mg 12:00: et} [place] [Claritin] 00 AM [place] [address] EDT [facility]) mg Loratadine Clarit 1.0 suspend Clariti n 10 eCW3 10 MG Oral in 2017 {tabl ed mg ([place] Tablet mg 12:00: et} [place] [facility] [address]) mg Loratadine Clarit 1.0 suspend Clariti n 10 eCW3 10 MG Oral in 2017 {tabl ed mg ([place] Tablet mg 12:00: et} [place] [Claritin] [address]) mg Loratadine Clarit 1.0 suspend Clariti n 10 eCW3 10 MG Oral in 2017 {tabl ed mg ([place] Tablet mg 12:00: et} [place] [facility] [address]) mg Loratadine Clarit 1.0 suspend Clariti n 10 eCW3 10 MG Oral in 2017 {tabl ed mg ([place] Tablet mg 12:00: et} [place] [facility] [address]) mg Loratadine Clarit 1.0 suspend Clariti n 10 eCW3 10 MG Oral in 2017 {tabl ed mg ([place] Tablet mg 12:00: et} [place] [facility] [address]) mg Loratadine Clarit 1.0 suspend Clariti n 10 eCW3 10 MG Oral in 2017 {tabl ed mg ([place] Tablet mg 12:00: et} [place] [facility] [address]) mg Loratadine Clarit 1.0 suspend Clariti n 10 eCW3 10 MG Oral in 2017 {tabl ed mg ([place] Tablet mg 12:00: et} [place] [Claritin] [address]) mg Aspirin 81 Aspiri 1.0 suspend Aspirin 81 eCW3 MG Chewable n 81 2018 {tabl ed MG ([place] Tablet MG 12:00: et} [facility] Aspirin 81 Aspiri 1.0 suspend Aspirin 81 eCW3 MG Chewable n 81 2017 {tabl ed MG ([place] Tablet MG 12:00: et} [place] 00 AM [facility] EDT Care) Aspirin 81 Aspiri 1.0 suspend Aspirin 81 eCW3 MG Chewable n 81 2018 {tabl ed MG ([place] Tablet MG 12:00: et} Health EDT Care) Aspirin 81 Aspiri 1.0 suspend Aspirin 81 eCW3 MG Chewable n 81 2018 {tabl ed MG ([place] Tablet MG 12:00: et} Health EDT Care) Aspirin 81 Aspiri 1.0 suspend Aspirin 81 eCW3 MG Chewable n 81 2018 {tabl ed MG ([place] Tablet MG 12:00: et} Health EDT Care) Aspirin 81 Aspiri 1.0 suspend Aspirin 81 eCW3 MG Chewable n 81 2018 {tabl ed MG ([place] Tablet MG 12:00: et} Health EDT Care) Aspirin 81 Aspiri 1.0 suspend Aspirin 81 eCW3 MG Chewable n 81 2018 {tabl ed MG ([place] Tablet MG 12:00: et} [place] [facility] EDT Care) Aspirin 81 Aspiri 1.0 suspend Aspirin 81 eCW3 MG Chewable n 81 2018 {tabl ed MG ([place] Tablet MG 12:00: et} [place] [facility] EDT Care) Aspirin 81 Aspiri 1.0 suspend Aspirin 81 eCW3 MG Chewable n 81 2018 {tabl ed MG ([place] Tablet MG 12:00: et} [place] [facility] EDT Care) Aspirin 81 Aspiri 1.0 suspend Aspirin 81 eCW3 MG Chewable n 81 2018 {tabl ed MG ([place] Tablet MG 12:00: et} [place] [facility] EDT Care) Aspirin 81 Aspiri 1.0 suspend Aspirin 81 eCW3 MG Chewable n 81 2018 {tabl ed MG ([place] Tablet MG 12:00: et} [place] [facility] EDT Care) Aspirin 81 Aspiri 1.0 suspend Aspirin 81 eCW3 MG Chewable n 81 2018 {tabl ed MG ([place] Tablet MG 12:00: et} [place] [facility] EDT Care) Aspirin 81 Aspiri 1.0 suspend Aspirin 81 eCW3 MG Chewable n 81 2018 {tabl ed MG ([place] Tablet MG 12:00: et} [place] 00 AM Health EDT Care) Aviane Aviane 1.0 suspend Aviane eCW3 0.1-20 0.1-20 2018 {tabl ed 0.1-20 ([place] MG-MCG MG-MCG 12:00: et} MG-MCG [place] 00 AM Health EDT Care) Aviane Aviane 1.0 suspend Aviane eCW3 0.1-20 0.1-20 2018 {tabl ed 0.1-20 ([place] MG-MCG MG-MCG 12:00: et} MG-MCG [place] 00 AM Health EDT Care) Aviane Aviane 1.0 suspend Aviane eCW3 0.1-20 0.1-20 2018 {tabl ed 0.1-20 ([place] MG-MCG MG-MCG 12:00: et} MG-MCG [place] 00 AM Health EDT Care) Aviane Aviane .0 suspend Aviane eCW3 0.1-20 0.1-20 2018 {tabl ed 0.1-20 ([place] MG-MCG MG-MCG 12:00: et} MG-MCG [place] 00 AM Health EDT Care) Aviane Aviane .0 suspend Aviane eCW3 0.1-20 0.1-20 2018 {tabl ed 0.1-20 ([place] MG-MCG MG-MCG 12:00: et} MG-MCG [place] 00 AM Health EDT Care) Aviane Aviane 1.0 suspend Aviane eCW3 0.1-20 0.1-20 2018 {tabl ed 0.1-20 ([place] MG-MCG MG-MCG 12:00: et} MG-MCG [place] 00 AM Health EDT Care) Aviane Aviane .0 suspend Aviane eCW3 0.1-20 0.1-20 2018 {tabl ed 0.1-20 ([place] MG-MCG MG-MCG 12:00: et} MG-MCG [place] 00 AM Health EDT Care) Aviane Aviane .0 suspend Aviane eCW3 0.1-20 0.1-20 2018 {tabl ed 0.1-20 ([place] MG-MCG MG-MCG 12:00: et} MG-MCG [place] 00 AM Health EDT Care) Aviane Aviane .0 suspend Aviane eCW3 0.1-20 0.1-20 2018 {tabl ed 0.1-20 ([place] MG-MCG MG-MCG 12:00: et} MG-MCG [place] 00 AM Health EDT Care) Aviane Aviane .0 suspend Aviane eCW3 0.1-20 0.1-20 2018 {tabl ed 0.1-20 ([place] MG-MCG MG-MCG 12:00: et} MG-MCG [place] 00 AM Health EDT Care) Aviane Aviane .0 suspend Aviane eCW3 0.1-20 0.1-20 2018 {tabl ed 0.1-20 ([place] MG-MCG MG-MCG 12:00: et} MG-MCG [place] 00 AM Health EDT Care) Aviane Aviane .0 suspend Aviane eCW3 0.1-20 0.1-20 2018 {tabl ed 0.1-20 ([place] MG-MCG MG-MCG 12:00: et} MG-MCG [place] 00 AM Health EDT Care) Aviane Aviane .0 suspend Aviane eCW3 0.1-20 0.1-20 2017 {tabl ed 0.1-20 ([place] MG-MCG MG-MCG 12:00: et} MG-MCG [place] 00 AM Health EDT Care) Oseltamivir Tamifl .0 suspend Tamifl u 75 eCW3 75 MG Oral u 75 2018 {caps ed MG ([place] Capsule MG 12:00: ule} [place] [Tamiflu] 00 AM Health Tamiflu 75 EDT Care) MG Oseltamivir Tamifl .0 suspend Tamifl u 75 eCW3 75 MG Oral u 75 2018 {caps ed MG ([place] Capsule MG 12:00: ule} [place] [Tamiflu] 00 AM Health Tamiflu 75 EDT Care) MG Oseltamivir Tamifl .0 suspend Tamifl u 75 eCW3 75 MG Oral u 75 2018 {caps ed MG ([place] Capsule MG 12:00: ule} [place] [Tamiflu] 00 AM Health Tamiflu 75 EDT Care) MG Oseltamivir Tamifl .0 suspend Tamifl u 75 eCW3 75 MG Oral u 75 2018 {caps ed MG ([place] Capsule MG 12:00: ule} [place] [Tamiflu] 00 AM Health Tamiflu 75 EDT Care) MG Oseltamivir Tamifl .0 suspend Tamifl u 75 eCW3 75 MG Oral u 75 2018 {caps ed MG ([place] Capsule MG 12:00: ule} [place] [Tamiflu] 00 AM Health Tamiflu 75 EDT Care) MG Oseltamivir Tamifl .0 suspend Tamifl u 75 eCW3 75 MG Oral u 75 2017 {caps ed MG ([place] Capsule MG 12:00: ule} [place] [Tamiflu] 00 AM Health Tamiflu 75 EDT Care) MG Oseltamivir Tamifl .0 suspend Tamifl u 75 eCW3 75 MG Oral u 75 2017 {caps ed MG ([place] Capsule MG 12:00: ule} [place] [Tamiflu] 00 AM Health Tamiflu 75 EDT Care) MG Oseltamivir Tamifl .0 suspend Tamifl u 75 eCW3 75 MG Oral u 75 2017 {caps ed MG ([place] Capsule MG 12:00: ule} [place] [Tamiflu] 00 AM Health Tamiflu 75 EDT Care) MG Oseltamivir Tamifl .0 suspend Tamifl u 75 eCW3 75 MG Oral u 75 2017 {caps ed MG ([place] Capsule MG 12:00: ule} [place] [Tamiflu] 00 AM Health Tamiflu 75 EDT Care) MG Oseltamivir Tamifl .0 suspend Tamifl u 75 eCW3 75 MG Oral u 75 2018 {caps ed MG ([place] Capsule MG 12:00: ule} [place] [Tamiflu] 00 AM Health Tamiflu 75 EDT Care) MG Oseltamivir Tamifl .0 suspend Tamifl u 75 eCW3 75 MG Oral u 75 2017 {caps ed MG ([place] Capsule MG 12:00: ule} [place] [Tamiflu] 00 AM Health Tamiflu 75 EDT Care) MG Oseltamivir Tamifl .0 suspend Tamifl u 75 eCW3 75 MG Oral u 75 2018 {caps ed MG ([place] Capsule MG 12:00: ule} [place] [Tamiflu] 00 AM Health Tamiflu 75 EDT Care) MG Oseltamivir Tamifl /.0 suspend Tamifl u 75 eCW3 75 MG Oral u 75 2018 {caps ed MG ([place] Capsule MG 12:00: ule} [place] [Tamiflu] 00 AM Health Tamiflu 75 EDT Care) MG Flonase 50 Flonas .0 suspend Flonase 50 eCW3 MCG/ACT e 50 2017 {spra ed MCG/ACT ([place] MCG/AC 12:00: y_in_ [place] T 00 AM each_ Health EST nostr Care) il} Flonase 50 Flonas .0 suspend Flonase 50 eCW3 MCG/ACT e 50 2017 {spra ed MCG/ACT ([place] MCG/AC 12:00: y_in_ [place] T 00 AM each_ Health EST nostr Care) il} Flonase 50 Flonas .0 suspend Flonase 50 eCW3 MCG/ACT e 50 2017 {spra ed MCG/ACT ([place] MCG/AC 12:00: y_in_ [place] T 00 AM each_ Health EST nostr Care) il} Flonase 50 Flonas .0 suspend Flonase 50 eCW3 MCG/ACT e 50 2017 {spra ed MCG/ACT ([place] MCG/AC 12:00: y_in_ [place] T 00 AM each_ Health EST nostr Care) il} Flonase 50 Flonas .0 suspend Flonase 50 eCW3 MCG/ACT e 50 2017 {spra ed MCG/ACT ([place] MCG/AC 12:00: y_in_ [place] T 00 AM each_ Health EST nostr Care) il} Flonase 50 Flonas .0 suspend Flonase 50 eCW3 MCG/ACT e 50 2017 {spra ed MCG/ACT ([place] MCG/AC 12:00: y_in_ [place] T 00 AM each_ Health EST nostr Care) il} Flonase 50 Flonas .0 suspend Flonase 50 eCW3 MCG/ACT e 50 2018 {spra ed MCG/ACT ([place] MCG/AC 12:00: y_in_ [place] T 00 AM each_ Health EST nostr Care) il} Flonase 50 Flonas .0 suspend Flonase 50 eCW3 MCG/ACT e 50 2017 {spra ed MCG/ACT ([place] MCG/AC 12:00: y_in_ [place] T 00 AM each_ Health EST nostr Care) il} Flonase 50 Flonas .0 suspend Flonase 50 eCW3 MCG/ACT e 50 2017 {spra ed MCG/ACT ([place] MCG/AC 12:00: y_in_ [place] T 00 AM each_ Health EST nostr Care) il} Flonase 50 Flonas .0 suspend Flonase 50 eCW3 MCG/ACT e 50 2017 {spra ed MCG/ACT ([place] MCG/AC 12:00: y_in_ [place] T 00 AM each_ Health EST nostr Care) il} Flonase 50 Flonas .0 suspend Flonase 50 eCW3 MCG/ACT e 50 2017 {spra ed MCG/ACT ([place] MCG/AC 12:00: y_in_ [place] T 00 AM each_ Health EST nostr Care) il} Flonase 50 Flonas .0 suspend Flonase 50 eCW3 MCG/ACT e 50 2017 {spra ed MCG/ACT ([place] MCG/AC 12:00: y_in_ [place] T 00 AM each_ Health EST nostr Care) il} Flonase 50 Flonas .0 suspend Flonase 50 eCW3 MCG/ACT e 50 2017 {spra ed MCG/ACT ([place] MCG/AC 12:00: y_in_ [place] T 00 AM each_ Health EST nostr Care) il} Ibuprofen Ibupro .0 suspend Ibuprofe n eCW3 600 MG Oral fen 2017 {tabl ed 600 MG ([place] Tablet 600 MG 12:00: et_wi [place] 00 AM th_ Health EDT od_or Care) _milk } Ibuprofen Ibupro .0 suspend Ibuprofe n eCW3 600 MG Oral fen 2017 {tabl ed 600 MG ([place] Tablet 600 MG 12:00: et_wi [place] 00 AM th_fo Health EDT od_or Care) _milk } Ibuprofen Ibupro .0 suspend Ibuprofe n eCW3 600 MG Oral fen 2017 {tabl ed 600 MG ([place] [facility] Tablet 600 MG 12:00: et_wi [place] 00 AM th_fo Health EDT od_or Care) _milk } Ibuprofen Ibupro .0 suspend Ibuprofe n eCW3 600 MG Oral fen 2017 {tabl ed 600 MG ([place] Tablet 600 MG 12:00: et_wi [place] AM th_fo Health EDT od_or Care) _milk } Ibuprofen Ibupro .0 suspend Ibuprofe n eCW3 600 MG Oral fen 2017 {tabl ed 600 MG ([place] [facility] Tablet 600 MG 12:00: et_wi [place] AM th_fo Health EDT od_or Care) _milk } Ibuprofen Ibupro .0 suspend Ibuprofe n eCW3 600 MG Oral fen 2017 {tabl ed 600 MG ([place] [facility] Tablet 600 MG 12:00: et_wi [place] AM th_fo Health EDT od_or Care) _milk } Ibuprofen Ibupro .0 suspend Ibuprofe n eCW3 600 MG Oral fen 2017 {tabl ed 600 MG ([place] [facility] Tablet 600 MG 12:00: et_wi [place] AM th_fo Health EDT od_or Care) _milk } Ibuprofen Ibupro .0 suspend Ibuprofe n eCW3 600 MG Oral fen 2017 {tabl ed 600 MG ([place] [facility] Tablet 600 MG 12:00: et_wi [place] AM th_fo Health EDT od_or Care) _milk } Ibuprofen Ibupro .0 suspend Ibuprofe n eCW3 600 MG Oral fen 2017 {tabl ed 600 MG ([place] [facility] Tablet 600 MG 12:00: et_wi [place] 00 AM th_fo Health EDT od_or Care) _milk } Ibuprofen Ibupro .0 suspend Ibuprofe n eCW3 600 MG Oral fen 2017 {tabl ed 600 MG ([place] [facility] Tablet 600 MG 12:00: et_wi [place] 00 AM th_fo Health EDT od_or Care) _milk } Ibuprofen Ibupro .0 suspend Ibuprofe n eCW3 600 MG Oral fen 2017 {tabl ed 600 MG ([place] [facility] Tablet 600 MG 12:00: et_wi [place] 00 AM th_fo Health EDT od_or Care) _milk } Ibuprofen Ibupro .0 suspend Ibuprofe n eCW3 600 MG Oral fen 2017 {tabl ed 600 MG ([place] [facility] Tablet 600 MG 12:00: et_wi [place] 00 AM th_fo Health EDT od_or Care) _milk } Ibuprofen Ibupro .0 suspend Ibuprofe n eCW3 600 MG Oral fen 2017 {tabl ed 600 MG ([place] [facility] Tablet 600 MG 12:00: et_wi [place] 00 AM th_fo Health EDT od_or Care) _milk } halobetasol Halobe .0 suspend Halobe tasol eCW3 propionate tasol 2017 {appl ed Propionate ( [place] 0.5 MG/ML Propio 12:00: icati 0.05 % [facility] Topical kem 00 AM on_to Health Cream 0.05 % EDT _affe Care) Halobetasol cted_ Propionate area} 0.05 % Loratadine Lorata .0 suspend Loratad ine eCW3 10 MG Oral dine 2017 {tabl ed 10 MG ([place] Tablet 10 MG 12:00: et} [place] 00 AM Health EDT Care) Naproxen Naprox .0 suspend Naproxen 500 eCW3 500 MG Oral en 500 2016 {tabl ed MG ([place] Tablet MG 12:00: et_as [place] 00 AM _need Health EDT ed} Care) Loratadine Lorata .0 suspend Loratad ine eCW3 10 MG dine 2017 {tabl ed 10 MG ([place] 10 MG 12:00: et} [place] 00 AM Health EDT Care) halobetasol Halobe .0 suspend Halobe tasol eCW3 propionate tasol 2017 {appl ed Propionate ( [place] 0.5 MG/ML Propio 12:00: icati 0.05 % [facility] Topical kem 00 AM on_to Health Cream 0.05 % EDT _affe Care) Halobetasol cted_ Propionate area} 0.05 % Loratadine Lorata .0 suspend Loratad ine eCW3 10 MG Oral dine 2017 {tabl ed 10 MG ([place] Tablet 10 MG 12:00: et} [place] 00 AM Health EDT Care) Naproxen Naprox .0 suspend Naproxen 500 eCW3 500 MG Oral en 500 2016 {tabl ed MG ([facility] Tablet MG 12:00: et_as [place] 00 AM _need Health EDT ed} Care) Naproxen Naprox .0 suspend Naproxen 500 eCW3 500 MG Oral en 500 2016 {tabl ed MG ([facility] Tablet MG 12:00: et_as [place] 00 AM _need Health EDT ed} Care) halobetasol Halobe .0 suspend Halobe tasol eCW3 propionate tasol 2017 {appl ed Propionate ( [place] 0.5 MG/ML Propio 12:00: icati 0.05 % [facility] Topical kem 00 AM on_to Health Cream 0.05 % EDT _affe Care) Halobetasol cted_ Propionate area} 0.05 % Loratadine Lorata .0 suspend Loratad ine eCW3 10 MG Oral dine 2017 {tabl ed 10 MG ([place] Tablet 10 MG 12:00: et} [place] 00 AM Health EDT Care) Naproxen Naprox .0 suspend Naproxen 500 eCW3 500 MG Oral en 500 2016 {tabl ed MG ([place] [facility] Tablet MG 12:00: et_as [place] 00 AM _need Health EDT ed} Care) Loratadine Lorata .0 suspend Loratad ine eCW3 10 MG Oral dine 2017 {tabl ed 10 MG ([place] Tablet 10 MG 12:00: et} [place] 00 AM Health EDT Care) Loratadine Lorata .0 suspend Loratad ine eCW3 10 MG Oral dine 2017 {tabl ed 10 MG ([place] Tablet 10 MG 12:00: et} [place] AM Health EDT Care) halobetasol Halobe .0 suspend Halobe tasol eCW3 propionate tasol 2017 {appl ed Propionate ( [place] 0.5 MG/ML Propio 12:00: icati 0.05 % [facility] Topical kem 00 AM on_to Health Cream 0.05 % EDT _affe Care) Halobetasol cted_ Propionate area} 0.05 % Loratadine Lorata .0 suspend Loratad ine eCW3 10 MG Oral dine 2017 {tabl ed 10 MG ([place] Tablet 10 MG 12:00: et} [place] AM Health EDT Care) Loratadine Lorata .0 suspend Loratad ine eCW3 10 MG Oral dine 2017 {tabl ed 10 MG ([place] Tablet 10 MG 12:00: et} [place] AM Health EDT Care) Loratadine Lorata .0 suspend Loratad ine eCW3 10 MG Oral dine 2017 {tabl ed 10 MG ([place] Tablet 10 MG 12:00: et} [place] AM [facility] EDT Care) Naproxen Naprox .0 suspend Naproxen 500 eCW3 500 MG Oral en 500 2017 {tabl ed MG ([facility] Tablet MG 12:00: et_as [place] AM _need Health EDT ed} Care) halobetasol Halobe .0 suspend Halobe tasol eCW3 propionate tasol 2017 {appl ed Propionate ( [place] 0.5 MG/ML Propio 12:00: icati 0.05 % [facility] Topical kem 00 AM on_to Health Cream 0.05 % EDT _affe Care) Halobetasol cted_ Propionate area} 0.05 % Naproxen Naprox .0 suspend Naproxen 500 eCW3 500 MG Oral en 500 2017 {tabl ed MG ([facility] Tablet MG 12:00: et_as [place] AM _need Health EDT ed} Care) Loratadine Lorata .0 suspend Loratad ine eCW3 10 MG Oral dine 2017 {tabl ed 10 MG ([place] Tablet 10 MG 12:00: et} [place] 00 AM Health EDT Care) Naproxen Naprox .0 suspend Naproxen 500 eCW3 500 MG Oral en 500 2016 {tabl ed MG ([facility] Tablet MG 12:00: et_as [place] 00 AM _need Health EDT ed} Care) Naproxen Naprox .0 suspend Naproxen 500 eCW3 500 MG Oral en 500 2016 {tabl ed MG ([facility] Tablet MG 12:00: et_as [place] 00 AM _need Health EDT ed} Care) Loratadine Lorata .0 suspend Loratad ine eCW3 10 MG Oral dine 2017 {tabl ed 10 MG ([place] Tablet 10 MG 12:00: et} [place] 00 AM Health EDT Care) halobetasol Halobe .0 suspend Halobe tasol eCW3 propionate tasol 2017 {appl ed Propionate ( [place] 0.5 MG/ML Propio 12:00: icati 0.05 % [facility] Topical kem 00 AM on_to Health Cream 0.05 % EDT _affe Care) Halobetasol cted_ Propionate area} 0.05 % halobetasol Halobe .0 suspend Halobe tasol eCW3 propionate tasol 2017 {appl ed Propionate ( [place] 0.5 MG/ML Propio 12:00: icati 0.05 % [facility] Topical kem 00 AM on_to Health Cream 0.05 % EDT _affe Care) Halobetasol cted_ Propionate area} 0.05 % Naproxen Naprox .0 suspend Naproxen 500 eCW3 500 MG Oral en 500 2016 {tabl ed MG ([facility] Tablet MG 12:00: et_as [place] 00 AM _need Health EDT ed} Care) Naproxen Naprox .0 suspend Naproxen 500 eCW3 500 MG Oral en 500 2016 {tabl ed MG ([facility] Tablet MG 12:00: et_as [place] 00 AM _need Health EDT ed} Care) halobetasol Halobe .0 suspend Halobe tasol eCW3 propionate tasol 2017 {appl ed Propionate ( [place] 0.5 MG/ML Propio 12:00: icati 0.05 % [facility] Topical kem 00 AM on_to Health Cream 0.05 % EDT _affe Care) Halobetasol cted_ Propionate area} 0.05 % halobetasol Halobe .0 suspend Halobe tasol eCW3 propionate tasol 2017 {appl ed Propionate ( [place] 0.5 MG/ML Propio 12:00: icati 0.05 % [facility] Topical kem 00 AM on_to Health Cream 0.05 % EDT _affe Care) Halobetasol cted_ Propionate area} 0.05 % Naproxen Naprox .0 suspend Naproxen 500 eCW3 500 MG Oral en 500 2016 {tabl ed MG ([facility] Tablet MG 12:00: et_as [place] 00 AM _need Health EDT ed} Care) halobetasol Halobe .0 suspend Halobe tasol eCW3 propionate tasol 2017 {appl ed Propionate ( [place] 0.5 MG/ML Propio 12:00: icati 0.05 % [facility] Topical kem 00 AM on_to Health Cream 0.05 % EDT _affe Care) Halobetasol cted_ Propionate area} 0.05 % Naproxen Naprox .0 suspend Naproxen 500 eCW3 500 MG Oral en 500 2016 {tabl ed MG ([facility] Tablet MG 12:00: et_as [place] 00 AM _need Health EDT ed} Care) Loratadine Lorata .0 suspend Loratad ine eCW3 10 MG Oral dine 2016 {tabl ed 10 MG ([place] Tablet 10 MG 12:00: et} [place] 00 AM Health EDT Care) Naproxen Naprox .0 suspend Naproxen 500 eCW3 500 MG Oral en 500 2016 {tabl ed MG ([facility] Tablet MG 12:00: et_as [place] 00 AM _need Health EDT ed} Care) Loratadine Lorata .0 suspend Loratad ine eCW3 10 MG Oral dine 2017 {tabl ed 10 MG ([place] Tablet 10 MG 12:00: et} [place] 00 AM Health EDT Care) halobetasol Halobe .0 suspend Halobe tasol eCW3 propionate tasol 2017 {appl ed Propionate ( [place] 0.5 MG/ML Propio 12:00: icati 0.05 % [facility] er Topical kem 00 AM on_to Health Cream 0.05 % EDT _affe Care) Halobetasol cted_ Propionate area} 0.05 % halobetasol Halobe .0 suspend Halobe tasol eCW3 propionate tasol 2017 {appl ed Propionate ( [place] 0.5 MG/ML Propio 12:00: icati 0.05 % [facility] er Topical kem 00 AM on_to Health Cream 0.05 % EDT _affe Care) Halobetasol cted_ Propionate area} 0.05 % halobetasol Halobe .0 suspend Halobe tasol eCW3 propionate tasol 2017 {appl ed Propionate ( [place] 0.5 MG/ML Propio 12:00: icati 0.05 % [facility] er Topical kem 00 AM on_to Health Cream 0.05 % EDT _affe Care) Halobetasol cted_ Propionate area} 0.05 % Omeprazole Omepra .0 suspend Omepraz ole eCW3 40 MG zole 2016 {caps ed 40 MG ([place] Delayed 40 MG 12:00: ule} [place] Release 00 AM Health Oral EDT Care) Capsule Omeprazole Omepra .0 suspend Omepraz ole eCW3 40 MG zole 2016 {caps ed 40 MG ([place] Delayed 40 MG 12:00: ule} [place] Release 00 AM Health Oral EDT Care) Capsule Omeprazole Omepra .0 suspend Omepraz ole eCW3 40 MG zole 2016 {caps ed 40 MG ([place] Delayed 40 MG 12:00: ule} [place] Release 00 AM Health Oral EDT Care) Capsule Omeprazole Omepra .0 suspend Omepraz ole eCW3 40 MG zole 2016 {caps ed 40 MG ([place] Delayed 40 MG 12:00: ule} [place] Release AM Health Oral EDT Care) Capsule Microgestin Microg .0 suspend Microg estin eCW3 FE 09/30 estin 2015 {tabl ed FE 09/30 ([facility] udson 1-20 MG-MCG FE 12:00: et} MG-MCG [place] 09/30 99 AM Health 09-30 EDT Care) MG-MCG Microgestin Microg .0 suspend Microg estin eCW3 FE 09/30 estin 2015 {tabl ed FE 09/30 (H udson -20 MG-MCG FE 12:00: et} MG-MCG [place] 09/30 99 AM Health 09-30 EDT Care) MG-MCG Microgestin Microg .0 suspend Microg estin eCW3 FE 09/30 estin 2015 {tabl ed FE 09/30 (H udson -20 MG-MCG FE 12:00: et} MG-MCG [place] 09/30 99 AM Health 09-30 EDT Care) MG-MCG Microgestin Microg .0 suspend Microg estin eCW3 FE 09/30 estin 2016 {tabl ed FE 09/30 (H udson 1-20 MG-MCG FE 12:00: et} MG-MCG [place] 09/30 99 AM Health 09-30 EDT Care) MG-MCG Microgestin Microg .0 suspend Microg estin eCW3 FE 09/30 estin 2015 {tabl ed FE 09/30 (H udson 1-20 MG-MCG FE 12:00: et} MG-MCG [place] 09/30 99 AM Health 09-30 EDT Care) MG-MCG Microgestin Microg .0 suspend Microg estin eCW3 FE 09/30 estin 2015 {tabl ed FE 09/30 (H udson 1-20 MG-MCG FE 12:00: et} MG-MCG [place] 09/30 99 AM Health 09-30 EDT Care) MG-MCG Microgestin Microg 09/29/ 1.0 suspend Microg estin eCW3 FE 09/30 estin 2016 {tabl ed FE 09/30- (H udson 1-20 MG-MCG FE 12:00: et} MG-MCG [place] 09/30 99 AM [facility] 09-30 EDT Care) MG-MCG Microgestin Microg .0 suspend Microg estin eCW3 FE 09/30 estin 2015 {tabl ed FE 09/30- (H udson 1-20 MG-MCG FE 12:00: et} MG-MCG [place] 09/30 99 AM [facility] 09-30 EDT Care) MG-MCG Microgestin Microg .0 suspend Microg estin eCW3 FE 09/30 estin 2015 {tabl ed FE 09/30 (H udson 1-20 MG-MCG FE 12:00: et} MG-MCG [place] 09/30 99 AM [facility] 09-30 EDT Care) MG-MCG Microgestin Microg .0 suspend Microg estin eCW3 FE 09/30 estin 2016 {tabl ed FE 09/30 (H udson 1-20 MG-MCG FE 12:00: et} MG-MCG [place] 09/30 99 AM [facility] 09-30 EDT Care) MG-MCG Microgestin Microg .0 suspend Microg estin eCW3 FE 09/30 estin 2016 {tabl ed FE 09/30- (H udson 1-20 MG-MCG FE 12:00: et} MG-MCG [place] 09/30 99 AM [facility] 09-30 EDT Care) MG-MCG Microgestin Microg .0 suspend Microg estin eCW3 FE 09/30 estin 2016 {tabl ed FE 09/30- (H udson 1-20 MG-MCG FE 12:00: et} MG-MCG [place] 09/30 99 AM [facility] 09-30 EDT Care) MG-MCG Microgestin Microg .0 suspend Microg estin eCW3 FE 09/30 estin 2016 {tabl ed FE 09/30- (H udson 1-20 MG-MCG FE 12:00: et} MG-MCG [place] 09/30 00 AM [facility] -20 EDT Care) MG-MCG GuaiFENesin GuaiFE 1.0 suspend GuaiFENe sin eCW3 ER 600 MG Nesin {tabl ed ER 600 MG (Hu dson ER 600 et_[place] MG _need Health ed} Care) Omeprazole UNK suspend Omeprazole eCW3 ed ([facility]) NITROFURANT MACROB 1.0 active MACROBID 100 eCW3 OIN, ID 100 {caps MG ([place] MACROCRYSTA MG ule_w [place] LS 25 MG / ith_f [facility] Nitrofurant ood} Care) oin, Monohydrate 75 MG Oral Capsule [Macrobid] MACROBID 100 MG Metronidazo Flagyl 1.0 suspend Flagyl 5 00 eCW3 le 500 MG 500 MG {tabl ed MG ([place] Oral Tablet et} [place] [facility] MG Acetaminoph UNK 1.0 suspend Acetaminop he eCW3 en 500 MG {caps ed n 500 MG ([place] e[facility] [place] [facility]} Care) Metronidazo Flagyl 1.0 suspend Flagyl 5 00 eCW3 le 500 MG 500 MG {tabl ed MG ([place] Oral Tablet et} [place] [[facility]] [facility]) MG Acetaminoph UNK 1.0 suspend Acetaminop he eCW3 en 500 MG {caps ed n 500 MG ([place] [facility] [place] [facility]} Care) GuaiFENesin GuaiFE 1.0 suspend GuaiFENe sin eCW3 ER 600 MG Nesin {tabl ed ER 600 MG (Hu dson ER 600 et_[place] MG _need Health ed} Care) Metronidazo Flagyl 1.0 suspend Flagyl 5 00 eCW3 le 500 MG 500 MG {tabl ed MG ([place] Oral Tablet et} [place] [[facility]] [facility]) MG Omeprazole UNK suspend Omeprazole eCW3 ed ([facility]) Acetaminoph UNK 1.0 suspend Acetaminop he eCW3 en 500 MG {caps ed n 500 MG ([facility] [place] e_a [place] s_nee Health ded} Care) Acetaminoph UNK 1.0 suspend Acetaminop he eCW3 en 500 MG {caps ed n 500 MG ([place] [facility] ded} Care) Metronidazo Flagyl 1.0 suspend Flagyl 5 00 eCW3 le 500 MG 500 MG {tabl ed MG ([place] Oral Tablet et} [place] [[facility]] [facility] [facility] Metronidazo Flagyl 1.0 suspend Flagyl 5 00 eCW3 le 500 MG 500 MG {tabl ed MG ([place] Oral Tablet et} [place] [[facility]] [facility] Flagyl 500 Care) MG GuaiFENesin GuaiFE 1.0 suspend GuaiFENe sin eCW3 ER 600 MG Nesin {tabl ed ER 600 MG ( dson ER 600 et_as [place] MG _need Health ed} Care) Omeprazole UNK suspend Omeprazole eCW3 ed ([facility]) Omeprazole UNK suspend Omeprazole eCW3 ed ([facility]) Ibuprofen Ibupro suspend Ibuprofen eCW3 400 MG [facility] fen ed [facility]) NITROFURANT MACROB 1.0 active MACROBID 100 eCW3 OIN, ID 100 {caps MG ([place] MACROCRYSTA MG ule_w [place] 25 MG / [facility] Nitrofurant ood} Care) oin, Monohydrate 75 MG Oral Capsule [Macrobid] MACROBID 100 MG Metronidazo Flagyl 1.0 suspend Flagyl 5 00 eCW3 le 500 MG 500 MG {tabl ed MG ([place] Oral Tablet et} [place] [[facility]] [facility]) MG Omeprazole UNK suspend Omeprazole eCW3 ed ([facility]) Acetaminoph UNK 1.0 suspend Acetaminop he eCW3 en 500 MG {caps ed n 500 MG ([place] [facility] [facility] ded} Care) Ibuprofen Ibupro suspend Ibuprofen eCW3 400 MG Oral fen ed 400 [facility]) Metronidazo Flagyl 1.0 suspend Flagyl 5 00 eCW3 le 500 MG 500 MG {tabl ed MG ([place] Oral Tablet et} [place] [Flagyl] Health Flagyl 500 Care) MG Ibuprofen Ibupro suspend Ibuprofen eCW3 400 MG Oral fen ed 400 MG ([place] Tablet 400 MG [facility]) GuaiFENesin GuaiFE 1.0 suspend GuaiFENe sin eCW3 ER 600 MG Nesin {tabl ed ER 600 MG ([place] ER 600 et_as [place] MG _need Health ed} Care) Ibuprofen Ibupro suspend Ibuprofen eCW3 400 MG Oral fen ed 400 MG ([place] Tablet 400 MG [facility]) GuaiFENesin GuaiFE 1.0 suspend GuaiFENe sin eCW3 ER 600 MG Nesin {tabl ed ER 600 MG ([place] ER 600 et_as [place] MG _need Health ed} Care) Ibuprofen Ibupro suspend Ibuprofen eCW3 400 MG Oral fen ed 400 MG ([place] Tablet 400 MG [facility]) Omeprazole UNK suspend Omeprazole eCW3 ed ([place] [facility]) Acetaminoph UNK 1.0 suspend Acetaminop he eCW3 en 500 MG {caps ed n 500 MG ([place] [facility] [place] [facility] ded} Care) Ibuprofen Ibupro suspend Ibuprofen eCW3 400 MG Oral fen ed 400 MG ([place] Tablet 400 MG [facility]) GuaiFENesin GuaiFE 1.0 suspend GuaiFENe sin eCW3 ER 600 MG Nesin {tabl ed ER 600 MG ([place] ER 600 et_as [place] _need Health ed} Care) Metronidazo Flagyl 1.0 suspend Flagyl 5 00 eCW3 le 500 MG 500 MG {tabl ed MG ([place] Oral Tablet et} [place] [Flag] Health Flagyl 500 Care) MG GuaiFENesin GuaiFE 1.0 suspend GuaiFENe sin eCW3 ER 600 MG Nesin {tabl ed ER 600 MG ([place] ER 600 et_as [place] MG _need Health ed} Care) Acetaminoph UNK 1.0 suspend Acetaminop he eCW3 en 500 MG {caps ed n 500 MG ([place] [facility] [place] [facility] ded} Care) Metronidazo Flagyl 1.0 suspend Flagyl 5 00 eCW3 le 500 MG 500 MG {tabl ed MG ([place] Oral Tablet et} [place] [[facility]] [facility] Flagyl 500 Care) MG Ibuprofen Ibupro suspend Ibuprofen eCW3 400 MG Oral fen ed 400 [facility]) Omeprazole UNK suspend Omeprazole eCW3 ed ([facility]) Acetaminoph UNK 1.0 suspend Acetaminop he eCW3 en 500 MG {caps ed n 500 MG ([place] [facility] [place] [facility] ded} Care) Ibuprofen Ibupro suspend Ibuprofen eCW3 400 MG Oral fen ed 400 MG ([place] Tablet 400 MG [facility]) GuaiFENesin GuaiFE 1.0 suspend GuaiFENe sin eCW3 ER 600 MG Nesin {tabl ed ER 600 MG ([place] ER 600 et_as [place] _need Health ed} Care) GuaiFENesin GuaiFE 1.0 suspend GuaiFENe sin eCW3 ER 600 MG Nesin {tabl ed ER 600 MG ([facility] ER 600 et_as [place] MG _need Health ed} Care) Ibuprofen Ibupro suspend Ibuprofen eCW3 400 MG Oral fen ed 400 MG ([place] Tablet 400 MG [facility]) Metronidazo Flagyl 1.0 suspend Flagyl 5 00 eCW3 le 500 MG 500 MG {tabl ed MG ([place] Oral Tablet et} [place] [[facility]] [facility] Care) MG Metronidazo Flagyl 1.0 suspend Flagyl 5 00 eCW3 le 500 MG 500 MG {tabl ed MG ([place] Oral Tablet et} [place] [[facility]] [facility] Care) MG Omeprazole UNK suspend Omeprazole eCW3 ed ([facility]) Metronidazo Flagyl 1.0 suspend Flagyl 5 00 eCW3 le 500 MG 500 MG {tabl ed MG ([place] Oral Tablet et} [place] [[facility]] [facility] Care) MG Acetaminoph UNK 1.0 suspend Acetaminop he eCW3 en 500 MG {caps ed n 500 MG ([place] [facility] [place] [facility] ded} Care) Metronidazo Flagyl 1.0 suspend Flagyl 5 00 eCW3 le 500 MG 500 MG {tabl ed MG ([place] Oral Tablet et} [place] [[facility]] [facility] Flagyl 500 Care) MG Omeprazole UNK suspend Omeprazole eCW3 ed ([facility]) Insurance Providers Payer name Policy type Policy ID Covered Covered green party's Policy P bryn / Coverage green party ID relationship to Key Inf ormation type key SELF PAY SP INSURANCE SARTHAK [id number] SP [id number] ESSENTIAL PLAN 3 4 Problems, Conditions, and Diagnoses Code Display Name Description Problem Type Effective Data Dates Source(s) H52.13 Myopia, bilateral Myopia, bilateral Problem 04/02/2020 eCW3 ([place] 12:00:00 AM [facility] EDT Care) K21.9 Gastroesophageal GERD Problem 10/23/2019 eCW3 ([place] reflux disease (gastroesophageal 12:00:00 AM [facility] reflux disease) EST Care) K21.9 Gastroesophageal GERD Problem 10/23/2019 eCW3 ([place] reflux disease (gastroesophageal 12:00:00 AM [facility] reflux disease) EST Care) J32.2 Sinusitis chronic, Sinusitis chronic, Problem 9 eCW3 ([place] [facility] J32.2 Sinusitis chronic, Sinusitis chronic, Problem 9 eCW3 ([place] ethmoidal [facility] L20.82 Flexural eczema Flexural eczema Problem 03/11/2019 eCW3 ([place] [facility] L20.82 Flexural eczema Flexural eczema Problem 03/11/2019 eCW3 ([place] 12:00:00 AM [facility] EDT Care) R92.8 Abnormal findings on Other abnormal and Problem 019 eCW3 ([place] diagnostic imaging of inconclusive 12:00:00 AM [facility] breast findings on EDT Care) diagnostic imaging of breast R92.8 Abnormal findings on Other abnormal and Problem 019 eCW3 ([place] diagnostic imaging of inconclusive 12:00:00 AM [facility] breast findings on EDT Care) diagnostic imaging of breast E55.9 Vitamin D deficiency Vitamin D Problem 11/30/2018 eCW3 ([place] deficiency 12:00:00 AM [facility] EDT Care) M05.79 Rheumatoid arthritis Rheumatoid Problem 11/30/2018 eCW3 ([place] involving multiple arthritis 12:00:00 AM [facility] sites with positive involving multiple EDT Care) rheumatoid factor sites with positive rheumatoid factor M05.79 Rheumatoid arthritis Rheumatoid Problem 11/30/2018 eCW3 ([place] involving multiple arthritis 12:00:00 AM [facility] sites with positive involving multiple EDT Care) rheumatoid factor sites with positive rheumatoid factor E55.9 Vitamin D deficiency Vitamin D Problem 11/30/2018 eCW3 ([place] deficiency 12:00:00 AM [facility] EDT Care) M05.79 Rheumatoid arthritis Rheumatoid Problem 11/30/2018 eCW3 ([place] involving multiple arthritis 12:00:00 AM [facility] sites with positive involving multiple EDT Care) rheumatoid factor sites with positive rheumatoid factor R53.82 Chronic fatigue Chronic fatigue Problem 11/20/2018 eCW3 ([place] 12:00:00 AM [facility] EDT Care) R53.82 Chronic fatigue Chronic fatigue Problem 11/20/2018 eCW3 ([place] 12:00:00 AM [facility] EDT Care) R53.82 Chronic fatigue Chronic fatigue Problem 11/20/2018 eCW3 ([place] 12:00:00 AM [facility] EDT Care) N93.9 Vaginal bleeding Vaginal bleeding Problem 08/15/2018 eC W3 ([place] 12:00:00 AM [facility] EST Care) N93.9 Vaginal bleeding Vaginal bleeding Problem 08/15/2018 eC W3 ([place] 12:00:00 AM [facility] EST Care) N93.9 Vaginal bleeding Vaginal bleeding Problem 08/15/2018 eC W3 ([place] 12:00:00 AM [facility] EST Care) N93.9 Vaginal bleeding Vaginal bleeding Problem 08/15/2018 eC W3 ([place] 12:00:00 AM [facility] EST Care) N83.202 Left ovarian cyst Left ovarian cyst Problem 07/19/2018 eCW3 ([place] 12:00:00 AM [facility] EST Care) N83.202 Left ovarian cyst Left ovarian cyst Problem 07/19/2018 eCW3 ([place] 12:00:00 AM [facility] EST Care) N83.202 Left ovarian cyst Left ovarian cyst Problem 07/19/2018 eCW3 ([place] 12:00:00 AM [facility] EST Care) N83.202 Left ovarian cyst Left ovarian cyst Problem 07/19/2018 eCW3 ([place] 12:00:00 AM [facility] EST Care) J30.2 Seasonal allergy Seasonal allergies Problem 04/12/2018 eCW3 ([place] 12:00:00 AM [facility] EDT Care) J30.2 Seasonal allergy Seasonal allergies Problem 04/12/2018 eCW3 ([place] 12:00:00 AM [facility] EDT Care) J30.2 Seasonal allergy Seasonal allergies Problem 04/12/2018 eCW3 ([place] 12:00:00 AM [facility] EDT Care) N92.1 Intermenstrual Excessive and Problem 11/23/2017 eCW3 ([place] bleeding - irregular frequent 12:00:00 AM [facility] menstruation with EDT Care) irregular cycle N92.1 Intermenstrual Excessive and Problem 11/23/2017 eCW3 ([place] bleeding - irregular frequent 12:00:00 AM [facility] menstruation with EDT Care) irregular cycle N92.1 Intermenstrual Excessive and Problem 11/23/2017 eCW3 ([place] bleeding - irregular frequent 12:00:00 AM [facility] menstruation with EDT Care) irregular cycle N92.1 Intermenstrual Excessive and Problem 11/23/2017 eCW3 ([place] bleeding - irregular frequent 12:00:00 AM [facility] menstruation with EDT Care) irregular cycle N30.00 Acute cystitis Acute cystitis Problem 09/14/2017 eCW3 ( [place] without hematuria without hematuria 12:00:00 AM [facility] EST Care) J00 Other acute rhinitis Other acute Problem 09/14/2017 eCW 3 ([place] rhinitis 12:00:00 AM [facility] EST Care) J00 Other acute rhinitis Other acute Problem 09/14/2017 eCW 3 ([place] rhinitis 12:00:00 AM [facility] EST Care) N30.00 Acute cystitis Acute cystitis Problem 09/14/2017 eCW3 ( [place] without hematuria without hematuria 12:00:00 AM [facility] EST Care) J00 Other acute rhinitis Other acute Problem 09/14/2017 eCW 3 ([place] rhinitis 12:00:00 AM [facility] EST Care) N30.00 Acute cystitis Acute cystitis Problem 09/14/2017 eCW3 ( [place] without hematuria without hematuria 12:00:00 AM [facility] EST Care) N30.00 Acute cystitis Acute cystitis Problem 09/14/2017 eCW3 ( [place] without hematuria without hematuria 12:00:00 AM [facility] EST Care) J00 Other acute rhinitis Other acute Problem 09/14/2017 eCW 3 ([place] rhinitis 12:00:00 AM [facility] EST Care) K21.9 Chronic GERD Chronic GERD Problem 04/28/2017 eCW3 ([place] 12:[facility]:00 [place] [facility] EDT Care) K21.9 Chronic GERD Chronic GERD Problem 04/28/2017 eCW3 ([place] 12:00:00 AM [facility] EDT Care) E66.3 Overweight Overweight Problem 04/14/2017 eCW3 ([place] 12:00:00 AM [facility] EDT Care) E66.3 Overweight Overweight Problem 04/14/2017 eCW3 ([place] 12:00:00 AM [place] [facility] EDT Care) E66.3 Overweight Overweight Problem 04/14/2017 eCW3 ([place] 12:00:00 AM [place] [facility] EDT Care) E66.3 Overweight Overweight Problem 04/14/2017 eCW3 ([place] 12:00:00 AM [facility] EDT Care) Z01.419 Gynecological Routine Problem 10/25/2016 eCW3 ([place] examination normal gynecological 12:00:00 AM [facility] EST Care) N76.0 Vaginitis Vaginitis Problem 10/25/2016 eCW3 ([place] 12:00:00 AM [facility] EST Care) N76.0 Vaginitis Vaginitis Problem 10/25/2016 eCW3 ([place] 12:00:00 AM [facility] EST Care) Z01.419 Gynecological Routine Problem 10/25/2016 eCW3 ([place] examination normal gynecological 12:00:00 AM [facility] examination EST Care) N76.0 Vaginitis Vaginitis Problem 10/25/2016 eCW3 ([place] 12:00:00 AM [facility] EST Care) Z01.419 Gynecological Routine Problem 10/25/2016 eCW3 ([place] examination normal gynecological 12:00:00 AM [facility] examination EST Care) K29.70 Gastritis Gastritis Problem 10/18/2016 eCW3 ([place] 12:00:00 AM [facility] EST Care) K29.70 Gastritis Gastritis Problem 10/18/2016 eCW3 ([place] 12:00:00 AM [facility] EST Care) K29.70 Gastritis Gastritis Problem 10/18/2016 eCW3 ([place] 12:00:00 AM [facility] EST Care) K29.70 Gastritis Gastritis Problem 10/18/2016 eCW3 ([place] 12:00:00 AM [facility] EST Care) Z86.19 History of infectious History of Problem 10/30/2015 eCW 3 ([place] disease Helicobacter 12:00:00 AM [facility] EST Care) M79.671 Pain in right foot Right foot pain Problem 10/30/2015 e CW3 ([place] 12:00:00 AM [facility] EST Care) Z86.19 History of infectious History of Problem 10/30/2015 eCW 3 ([place] disease Helicobacter 12:00:00 AM [facility] EST Care) M79.671 Pain in right foot Right foot pain Problem 10/30/2015 e CW3 ([place] 12:00:00 AM [facility] EST Care) M79.671 Pain in right foot Right foot pain Problem 10/30/2015 e CW3 ([place] 12:00:00 AM [facility] EST Care) Z86.19 History of infectious History of Problem 10/30/2015 eCW 3 ([place] disease Helicobacter 12:00:00 AM [facility] EST Care) Results ID Date Data Source [id number] 02/04/2020 12:00:00 AM EDT [facility] Name Value Range Interpretation Code Description Data Bijal rce(s) Supporting Document(s ) 2019-nCoV [facility] RNA XXX MAGDA+probe- Imp This lab was ordered by [facility] and reported by [facility]. ID Date Data Source RHEUMATOID PROFILE.8 11/25/2018 07:51:27 AM EDT eCW3 ([facility]) Name Value Range Interpretation Code Description Data Bijal rce(s) Supporting Document(s ) Positive IRINEO SCREEN eCW3 ([facility]) 22 ESR (SED-RATE) eCW3 ([facility]) <0.1 CRP eCW3 ([facility]) 27 RHEUMATOID (RF) eCW3 ([facility]) 211 ASO eCW3 ([facility]) ID Date Data Source VITB12,FOL,FERR,IRON.7 11/25/2018 07:49:00 AM EDT eCW3 ([facility]) Name Value Range Interpretation Code Description Data Bijal rce(s) Supporting Document(s ) 367 VITAMIN B12 eCW3 ([facility]) 13.72 FOLIC ACID eCW3 ([facility]) 179 Iron eCW3 ([facility]) 24 FERRITIN eCW3 ([facility]) ID Date Data Source REFLEX TESTING (IRINEO TITER).5 11/25/2018 07:48:02 AM EDT eCW3 ([facility]) Name Value Range Interpretation Code Description Data Bijal rce(s) Supporting Document(s ) 1:160 IRINEO TITER (IFA) eCW3 ([facility]) ID Date Data Source CBC W/DIFF, PLATELET CT. 11/25/2018 07:47:32 AM EDT eCW3 ([facility] (0053-9).4 Care) Name Value Range Interpretation Code Description Data Bijal rce(s) Supporting Document(s ) 6.84 WBC eCW3 ([facility]) 93.7 MCV eCW3 ([facility]) 13.7 HGB eCW3 ([facility]) 4.10 RBC eCW3 ([facility]) 38.4 HCT eCW3 ([facility]) 70.8 POLYS eCW3 ([facility]) 35.7 MCHC eCW3 ([facility]) 33.4 MCH eCW3 ([facility]) 13.7 RDW eCW3 ([facility]) 1.54 LYMPHS, ABS. COUNT eCW3 ([facility]) 4.4 MONOS eCW3 ([facility]) 0.30 MONOS, ABS. COUNT eCW3 ([facility]) 22.5 LYMPHS eCW3 ([facility]) 4.84 POLYS, ABS. COUNT eCW3 ([facility]) 0.09 EOS, ABS. COUNT eCW3 ([facility]) 0.05 BASOS, ABS. COUNT eCW3 ([facility]) 1.3 EOS eCW3 ([facility]) 0.7 BASOS eCW3 ([facility]) 10.1 MPV eCW3 ([facility]) 0.3 IMMATURE eCW3 ([facility]) 308 PLATELET COUNT eCW3 ([facility]) ID Date Data Source TSH W/FREE T4 REFLEX 11/25/2018 07:45:25 AM EDT eCW3 ([facility] (A518-3).6 Care) Name Value Range Interpretation Code Description Data Bijal rce(s) Supporting Document(s ) 0.496 TSH W/RFX TO FREE eCW3 ([place] T4 [facility]) ID Date Data Source VITAMIN D, 25-HYDROXY, SERUM.3 11/25/2018 07:45:25 AM EDT eC W3 ([facility]) Name Value Range Interpretation Description Data Sup porting Code Source(s) Document(s ) Calcidiol 14.5 25OH, VITAMIN D eCW3 ([place] [Mass/volume] [facility] in Serum or Care) Plasma ID Date Data Source HEMOGLOBIN A1c (glycohgb) 11/25/2018 07:45:25 AM EDT eCW3 ([facility] (0102-4) BIOREFERENCE.2 Care) Name Value Range Interpretation Description Data Sup porting Code Source(s) Document(s ) Hemoglobin <4.2 Hemoglobin A1c eCW3 ([place] A1c/Hemoglobin [facility] .total in Care) Blood ID Date Data Source LIPID PANEL ([facility] 11/25/2018 07:45:25 AM EDT eCW3 ([facility]) 786608.1 Care) Name Value Range Interpretation Description Data Sup porting Code Source(s) Document(s ) Cholesterol 187 Cholesterol eCW3 ([place] [Mass/volume] [facility] in Serum or Care) Plasma Deprecated 5.3 Chol/HDL Ratio eCW3 ([place] Cholesterol [facility] [Mass/volume] Care) in Serum or Plasma Deprecated 19 HDL as % of eCW3 ([place] Cholesterol Cholesterol [facility] [Mass/volume] Care) in Serum or Plasma Cholesterol in 35 HDL CHOL., eCW3 ([place] HDL DIRECT [facility] [Mass/volume] Care) in Serum or Plasma Triglyceride 121 Triglycerides eCW3 ([place] [Mass/volume] [facility] in Serum or Care) Plasma Cholesterol in 128 LDL Cholesterol eCW3 ([employer] LDL [facility] [Mass/volume] Care) in Serum or Plasma by calculation Deprecated 3.66 LDL/HDL Ratio eCW3 ([place] Cholesterol [facility] [Mass/volume] Care) in Serum or Plasma Deprecated 24 VLDL, CALCULATED eCW3 ([place] Cholesterol [facility] [Mass/volume] Care) in Serum or Plasma Deprecated 152 Non-HDL eCW3 ([place] Cholesterol Cholesterol [facility] [Mass/volume] Care) in Serum or Plasma ID Date Data Source Carmela (HIV), In House.0 11/23/2018 06:50:20 AM EDT eCW3 ( [facility]) Name Value Range Interpretation Description Data Sup porting Code Source(s) Document(s ) HIV 1 RNA nonreactive Derricknatalielinus eCW3 ([place] [#/volume] [facility] (viral Care) load) in Serum or Plasma by DNA probe ID Date Data Source HEPATITIS PANEL A, B, C 10/31/2018 08:46:28 AM EST eCW3 ([facility] SCREENING (2280-6).1 [facility]) Name Value Range Interpretation Description Data Sup porting Code Source(s) Document(s ) Hepatitis C Non-Reactiv HEP. C Ab. eCW3 virus Ab e ([place] [Presence] in [place] Serum or Health Plasma by [facility]) Immunoassay Reactive HEP. B SURF. eCW3 Ab. ([facility]) Non-Reactiv HEP. B SURF. eCW3 e Ag ([facility]) Non-Reactiv HEP. B CORE eCW3 e Ab. IGG ([facility]) Hepatitis A Reactive HEP. A Ab., eCW3 virus Ab TOTAL ([place] [Presence] in [place] Serum by Health Immunoassay Care) ID Date Data Source HAV AB, (IGM).0 10/31/2018 08:46:28 AM EST eCW3 ([facility]) Name Value Range Interpretation Description Data Sup porting Code Source(s) Document(s ) Hepatitis A Non-Reac HEP. A Ab., eCW3 ([place] virus IgM Ab tive IgM [facility] [Presence] in Care) Serum or Plasma by Immunoassay Procedure Social History Code Duration Value Status Description Data Source(s ) Smoking 04/16/2020 12:00:00 Never Smoker completed Never Smoker e CW3 (On license of [facility]) Smoking 04/16/2020 12:00:00 Never Smoker completed Never Smoker e CW3 (On license of [facility]) Smoking 04/02/2020 12:00:00 Never Smoker completed Never Smoker e CW3 (On license of [facility]) Smoking 03/20/2020 12:00:00 Never Smoker completed Never Smoker e CW3 (On license of [facility]) Smoking 02/04/2020 12:00:00 Never Smoker completed Never Smoker e CW3 (On license of [facility]) Smoking 01/14/2020 12:00:00 Never Smoker completed Never Smoker e CW3 (On license of [facility]) Smoking 01/14/2020 12:00:00 Never Smoker completed Never Smoker e CW3 (On license of [facility]) Smoking 11/06/2019 12:00:00 Never Smoker completed Never Smoker e CW3 ([facility]) Smoking 11/06/2019 12:00:00 Never Smoker completed Never Smoker e CW3 ([facility]) Smoking 05/24/2019 12:00:00 Never Smoker completed Never Smoker e CW3 (On license of [facility]) Smoking 03/11/2019 12:00:00 Never Smoker completed Never Smoker e CW3 (On license of [facility]) Smoking 10/29/2018 12:00:00 Never Smoker completed Never Smoker e CW3 ([facility]) Smoking 10/26/2018 12:00:00 Never Smoker completed Never Smoker e CW3 ([facility]) Never Smoker completed Never Smoker eCW3 ([facility]) Never Smoker completed Never Smoker eCW3 ([facility]) Never Smoker completed Never Smoker eCW3 ([facility]) Never Smoker completed Never Smoker eCW3 ([facility]) Never Smoker completed Never Smoker eCW3 ([facility]) Never Smoker completed Never Smoker eCW3 ([facility]) Never Smoker completed Never Smoker eCW3 ([facility]) Never Smoker completed Never Smoker eCW3 ([facility]) Never Smoker completed Never Smoker eCW3 ([facility]) Never Smoker completed Never Smoker eCW3 ([facility]) Never Smoker completed Never Smoker eCW3 ([facility] [place] [facility]) Never Smoker completed Never Smoker eCW3 ([facility] [place] [facility]) Never Smoker completed Never Smoker eCW3 ([facility] [place] [facility]) Vital Signs ID Date Data Source UNK Name Value Range Interpretation Code Description Data Source(s) Diastolic blood 78 mm[Hg] 78 mm[Hg] eCW3 ([facility]) Systolic blood 108 mm[Hg] 108 mm[Hg] eCW3 ([facility]) Body temperature 98.8 [degF] 98.8 [degF] eCW3 ( [facility]) Body mass index 27.17 kg/m2 27.17 kg/m2 eCW3 ([place] (BMI) [Ratio] [facility]) Body weight 130 [lb_av] 130 [lb_av] eCW3 ([facility]) Body height 58 [in_i] 58 [in_i] eCW3 ([facility]) Diastolic blood 73 mm[Hg] 73 mm[Hg] eCW3 ([facility]) Systolic blood 108 mm[Hg] 108 mm[Hg] eCW3 ([facility] on [facility]) Body temperature 98.3 [degF] 98.3 [degF] eCW3 ( [facility]) Body mass index 27.17 kg/m2 27.17 kg/m2 eCW3 ([place] (BMI) [Ratio] [facility]) Body weight 130 [lb_av] 130 [lb_av] eCW3 ([facility]) Body height 58 [in_i] 58 [in_i] eCW3 ([facility]) Diastolic blood 66 mm[Hg] 66 mm[Hg] eCW3 ([facility]) Systolic blood 102 mm[Hg] 102 mm[Hg] eCW3 ([facility] [place] [facility] Body temperature 98.3 [degF] 98.3 [degF] eCW3 ( [facility]) Body mass index 27.17 kg/m2 27.17 kg/m2 eCW3 ([facility] (BMI) [Ratio] [facility]) Body weight 130 [lb_av] 130 [lb_av] eCW3 ([facility]) Body height 58 [in_i] 58 [in_i] eCW3 ([facility]) Body height 58 [in_i] 58 [in_i] eCW3 ([facility]) Diastolic blood 72 mm[Hg] 72 mm[Hg] eCW3 ([facility]) Systolic blood 114 mm[Hg] 114 mm[Hg] eCW3 ([facility]) Body temperature 98.2 [degF] 98.2 [degF] eCW3 ( [facility]) Body mass index 26.96 kg/m2 26.96 kg/m2 eCW3 ([facility] (BMI) [Ratio] [facility]) Body weight 129 [lb_av] 129 [lb_av] eCW3 ([facility]) Diastolic blood 77 mm[Hg] 77 mm[Hg] eCW3 ([facility]) Systolic blood 122 mm[Hg] 122 mm[Hg] eCW3 ([facility]) Body temperature 98.0 [degF] 98.0 [degF] eCW3 ( [facility]) Body mass index 26.33 kg/m2 26.33 kg/m2 eCW3 ([facility] (BMI) [Ratio] [facility]) Body weight 126 [lb_av] 126 [lb_av] eCW3 ([facility]) Body height 58 [in_i] 58 [in_i] eCW3 ([facility]) Diastolic blood 69 mm[Hg] 69 mm[Hg] eCW3 ([facility]) Systolic blood 102 mm[Hg] 102 mm[Hg] eCW3 ([facility]) Body temperature 98.2 [degF] 98.2 [degF] eCW3 ( [facility]) Body mass index 26.54 kg/m2 26.54 kg/m2 eCW3 ([facility] (BMI) [Ratio] [facility]) Body weight 127 [lb_av] 127 [lb_av] eCW3 ([facility]) Body height 58 [in_i] 58 [in_i] eCW3 ([facility]) Diastolic blood 72 mm[Hg] 72 mm[Hg] eCW3 ([facility]) Systolic blood 113 mm[Hg] 113 mm[Hg] eCW3 ([facility]) Body temperature 98.9 [degF] 98.9 [degF] eCW3 ( [facility]) Heart rate 20 /min 20 /min eCW3 ([facility]) Body mass index 26.54 kg/m2 26.54 kg/m2 eCW3 (Jacqueline byers (BMI) [Ratio] [facility]) Body weight 127 [lb_av] 127 [lb_av] eCW3 ([facility]) Body height 58 [in_i] 58 [in_i] eCW3 ([facility]) Diastolic blood 67 mm[Hg] 67 mm[Hg] eCW3 ([facility]) Systolic blood 100 mm[Hg] 100 mm[Hg] eCW3 ([facility]) Body temperature 97.6 [degF] 97.6 [degF] eCW3 ( [facility]) Body mass index 26.54 kg/m2 26.54 kg/m2 eCW3 (Jacqueline byers (BMI) [Ratio] [facility]) Body weight 127 [lb_av] 127 [lb_av] eCW3 ([facility]) Body height 58 [in_i] 58 [in_i] eCW3 ([facility]) Diastolic blood 74 mm[Hg] 74 mm[Hg] eCW3 ([facility]) Systolic blood 108 mm[Hg] 108 mm[Hg] eCW3 ([facility]) Body temperature 98.5 [degF] 98.5 [degF] eCW3 ( [facility]) Heart rate 20 /min 20 /min eCW3 ([facility]) Body mass index 0.26 kg/m2 0.26 kg/m2 eCW3 ([employer] (BMI) [Ratio] [facility]) Body weight 126 [lb_av] 126 [lb_av] eCW3 ([facility]) Body height 588 [in_i] 588 [in_i] eCW3 ([facility]) Diastolic blood 79 mm[Hg] 79 mm[Hg] eCW3 ([facility]) Systolic blood 110 mm[Hg] 110 mm[Hg] eCW3 ([facility]) Body temperature 97.1 [degF] 97.1 [degF] eCW3 ( [facility]) Body mass index 26.12 kg/m2 26.12 kg/m2 eCW3 ([facility] (BMI) [Ratio] [facility]) Body weight 125 [lb_av] 125 [lb_av] eCW3 ([facility]) Body height 58 [in_i] 58 [in_i] eCW3 ([facility]) Diastolic blood 75 mm[Hg] 75 mm[Hg] eCW3 ([facility]) Systolic blood 104 mm[Hg] 104 mm[Hg] eCW3 ([facility]) Body temperature 98.0 [degF] 98.0 [degF] eCW3 ( [facility]) Body mass index 26.54 kg/m2 26.54 kg/m2 eCW3 ([facility] (BMI) [Ratio] [facility]) Body weight 127 [lb_av] 127 [lb_av] eCW3 ([facility]) Body height 58 [in_i] 58 [in_i] eCW3 ([facility]) Diastolic blood 75 mm[Hg] 75 mm[Hg] eCW3 ([facility]) Systolic blood 112 mm[Hg] 112 mm[Hg] eCW3 ([facility]) Body temperature 98.1 [degF] 98.1 [degF] eCW3 ( [facility]) Body mass index 25.91 kg/m2 25.91 kg/m2 eCW3 ([facility] (BMI) [Ratio] [facility]) Body weight 124 [lb_av] 124 [lb_av] eCW3 ([facility]) Body height 58 [in_i] 58 [in_i] eCW3 ([facility]) Diastolic blood 73 mm[Hg] 73 mm[Hg] eCW3 ([facility]) Systolic blood 116 mm[Hg] 116 mm[Hg] eCW3 ([facility]) Body temperature 97.1 [degF] 97.1 [degF] eCW3 ( [facility]) Body mass index 26.33 kg/m2 26.33 kg/m2 eCW3 (Jacqueline byers (BMI) [Ratio] [facility]) Body weight 126 [lb_av] 126 [lb_av] eCW3 ([facility]) Body height 58 [in_i] 58 [in_i] eCW3 ([facility]) Patient Treatment Plan of Care Planned Activity Planned Date Details Description Data Source (s) Omeprazole 40 MG Delayed 01/14/2020 eCW 3 ([place] Release Oral Capsule 12:00:00 AM [facility]) Omeprazole 40 MG Delayed 01/14/2020 eCW 3 ([place] Release Oral Capsule 12:00:00 AM [facility]) Omeprazole 40 MG Delayed 01/14/2020 eCW 3 ([place] Release Oral Capsule 12:00:00 AM [facility]) Azithromycin 250 MG Oral 11/06/2019 eCW 3 ([facility] Tablet 12:00:00 AM [facility]) Azithromycin 250 MG Oral 11/06/2019 eCW 3 ([facility] Tablet 12:00:00 AM [facility]) Cyclobenzaprine 11/06/2019 eCW3 ([place] hydrochloride 10 MG Oral 12:00:00 AM [facility]) Tablet Ibuprofen 800 MG Oral 05/24/2019 eCW3 ( [facility] Tablet 12:00:00 AM [facility]) Hydrocortisone 25 MG/ML 03/11/2019 eCW3 ([facility] Topical Cream 12:00:00 AM [facility] ) Fluconazole 150 MG Oral 03/11/2019 eCW3 ([facility] Tablet [Diflucan] 12:00:00 AM [facility]) NITROFURANTOIN, eCW3 ([facility] MACROCRYSTALS 25 MG / [facility]) Nitrofurantoin, Monohydrate 75 MG Oral Capsule [Macrobid] NITROFURANTOIN, eCW3 ([facility] MACROCRYSTALS 25 MG / [facility]) Nitrofurantoin, Monohydrate 75 MG Oral Capsule [Macrobid]
--- NOTE | 2020-06-16 16:52 | PDOC ---
History of Present Illness - General History Source: Patient - History of Present Illness Timing/Duration: reports: other Associated Symptoms: denies: fever/chills, numbness in legs/feet, seizures, slurred speech, tingling in legs/feet, weakness <Ariela Sandhu - Last Filed: 06/16/20 17:51> <Amanda Almanza - Last Filed: 06/17/20 09:02> - General Chief Complaint: Headache Stated Complaint: HEADACHE/RIGHT SIDED PAIN Time Seen by Provider: 06/16/20 16:29 Past History - Medical History Asthma: No Cancer: No Cardiac Disorders: No COPD: No Diabetes: Yes (gestational) HTN: No Seizures: No Thyroid Disease: No - Reproductive History Is Patient Now?: No - Immunization History Immunization Up to Date: Yes (flu vaccine) - Psycho-Social/Smoking History Smoking Status: No Smoking History: Never smoked Have you smoked in the past 12 months: No Number of Cigarettes Smoked Daily: 0 - Substance Abuse Hx (Audit-C & DAST Scrn) How often the patient has a drink containing alcohol: Never Score: In Men: 4 or > Positive; In Women: 3 or > Positive: 0 Screen Result (Pos requires Nsg. Audit-10AR): Negative In the last yr the pt used illegal drug/Rx for NonMed reason: No Score: Yes response is considered Positive: 0 Screen Result (Positive result requires Nsg. DAST-10): Negative <Ariela Sandhu Last Filed: 06/16/20 17:51> <Amanda Almanza - Last Filed: 06/17/20 09:02> - Medical History Allergies/Adverse Reactions: Allergies Allergy/AdvReac Type Severity Reaction Status Date / Time No Known Allergies Allergy Verified 06/16/20 16:29 Home Medications: Ambulatory Orders NK [No Known Home Medication] 06/16/20 Neuro Specific PMHX - Complaint Specific PMHX Migraine: No <Ariela Sandhu Last Filed: 06/16/20 17:51> Review of Systems - Review of Systems Constitutional: No: Chills, Weight Stable HEENTM: No: Blurred Vision ABD/GI: No: Nausea, Vomiting Neurological: Yes: Headache. No: Numbness, Tingling, Weakness, Dizziness <Ariela Sandhu - Last Filed: 06/16/20 17:51> *Physical Exam - Vital Signs Last Vital Signs Temp Pulse Resp BP Pulse Ox 98.6 F 110 H 20 130/92 100 06/16/20 16:29 06/16/20 16:29 06/16/20 16:29 06/16/20 16:29 06/16/20 16:29 - Physical Exam General Appearance: Yes: Appropriately Dressed. No: Apparent Distress HEENT: positive: Normal Voice Neck: positive: Supple Respiratory/Chest: negative: Respiratory Distress Integumentary: positive: Dry, Warm Neurologic: positive: cinder block mason II-XII NML intact, Fully Oriented, Alert, Normal Mood/Affect, Motor Strength 5/5 <Ariela Sandhu - Last Filed: 06/16/20 17:51> - Vital Signs Last Vital Signs Temp Pulse Resp BP Pulse Ox 98.6 F 80 17 128/82 99 06/16/20 16:29 06/16/20 18:09 06/16/20 18:09 06/16/20 18:09 06/16/20 18:09 <Amanda Almanza - Last Filed: 06/17/20 09:02> ED Treatment Course - RADIOLOGY Radiology Studies Ordered: Category Date Time Status HEAD CT WITHOUT CONTRAST [CT] Stat CT Scan 06/16/20 16:47 Ordered <Ariela Sandhu - Last Filed: 06/16/20 17:51> - Medications Given in the ED: ED Medications Discontinued Medications Generic Name Dose Route Start Last Admin Trade Name Moy PRN Reason Stop Dose Admin Acetaminophen 1,000 mg 06/16/20 16:31 06/16/20 17:04 Ofirmev Injection - IVPB 06/16/20 16:32 Not Given ONCE ONE Acetaminophen 1,000 mg 06/16/20 16:47 06/16/20 17:11 Tylenol - PO 06/16/20 16:48 1,000 mg ONCE ONE Administration Sodium Chloride 1,000 mls @ 1,000 mls/hr 06/16/20 16:31 06/16/20 17:11 Normal Saline - IV 06/16/20 17:30 Not Given ASDIR STA Metoclopramide HCl 10 mg 06/16/20 16:31 06/16/20 17:04 Reglan Injection - IVPB 06/16/20 16:32 Not Given ONCE ONE <Amanda Almanza - Last Filed: 06/17/20 09:02> Medical Decision Making - Medical Decision Making 06/16/20 16:48 45 yo F, no sig hx, here w/ CRYSTAL. Reports R sided CRYSTAL on and off that started gradually yesterday. Describes pain as pulsating, 04/20 but does improve w/ Tylenol and not having pain at this time. No dizziness, n/v, blurry vision or unexplained weight loss. No recent head injury. No h/o similar pain but has had HAs in past. Not worse CRYSTAL of life. No infectious sxs See exam New onset CRYSTAL in pt > 40 CRYSTAL since improved Stable w/ neuro intact -CTH -anticipate dc w/ PMD f/u as needed 06/16/20 17:51 CT head w/ no acute findings. Pt declines to wait for her upreg test at this time as lab staff states that they are now just beginning to process specimen after specimen sent ~40 min ago. Patient stable for discharge to continue taking Tylenol as needed for pain and follow-up with her PMD 1 <Ariela Sandhu - Last Filed: 06/16/20 17:51> - Medical Decision Making I reviewed the case with the mid-level practitioner and agree with the mid-level practitioner's assessment, diagnosis and disposition. <Amanda Almanza - Last Filed: 06/17/20 09:02> Discharge - Discharge Information Problems reviewed: Yes <Ariela Sandhu - Last Filed: 06/16/20 17:51> <Amanda Almanza - Last Filed: 06/17/20 09:02> - Discharge Information Clinical Impression/Diagnosis: Headache Qualifiers: Headache type: other headache syndrome Qualified Code(s): G44.89 - Other heada belkis syndrome Condition: Improved - Follow up/Referral Referrals: Samara Edmond MD [Primary Care Provider] - - Patient Discharge Instructions Patient Printed Discharge Instructions: DI for Headache Additional Instructions: Your CT head was normal today Continue tylenol and follow with your PMD if headache persists - Post Discharge Activity
[2020-06-16] MEDS ORDERED: ACETAMINOPHEN 325 MG TABLET (FP) ONE (17:06)
[2020-06-16 18:09] VITALS: BP 128/82; PULSE 80
== END 2020-06-16 18:09 | disposition home or self-care (01) ==
LOC: JER 16:27
DX: G44.89 Other headache syndrome (principal)
CPT/HCPCS: 70450-TC; 84703; 99284-25

== ENCOUNTER 2020-06-26 17:03 | Emergency (ER) | payer OTHER ==
[2020-06-26 17:14] VITALS: BP 132/94; PULSE 91; TEMP 97.8; BMI 27.1
--- OUTSIDE RECORDS SUMMARY | 2020-06-26 17:25 | XMS ---
:1975 Author Organization [facility] Support Name Relationship Address Phone DEMETRICE STONE [place] [address] WASH PRO Unavailable [address] [place] [address] GLEN DRIVER [address]HER [address] [place] [address] GLEN DRIVER Mother [address] [place] [address] Re-disclosure Warning The records that you are [...] is protected by Article 27-F of the [facility] Public Health law. If you continue you may haveaccess to information: Regarding HIV / AIDS; Provided by facilities licensed or operated by the [facility] Office of Mental Health; or Provided by the [facility] Office for People With Developmental Disabilities. If such information is present, then the following [facility] mandated warning applies: This information has been [...] law may result in a fine or half-way sentence or both. A general authorization for the release of medical or other information is NOT sufficient authorization for further disclosure. Encounters Encounter Providers Location Date Indications Data Source(s ) Outpatient [facility] 06/12/2019 eCW3 ([facility] A28 12:00:00 AM Health Care) EDT - 06/12/2019 12:00:00 AM EDT Outpatient [facility] 05/24/2019 eCW3 ([facility] [place] A28 12:00:00 AM Health Care) EDT - 05/24/2019 12:00:00 AM EDT Outpatient [facility] 05/15/2019 eCW3 ([facility] A28 12:00:00 AM Health Care) EDT - 05/15/2019 12:00:00 AM EDT Outpatient [facility] 05/01/2019 eCW3 ([facility] A28 12:00:00 AM Health Care) EDT - 05/01/2019 12:00:00 AM EDT Medications Medication Brand Start Product Dose Route Administrative Pharmacy [facility] Indications Reaction Description Data Name Date Form Instructions Instructions Source(s) Meclizine Mecliz .0 active Meclizine eCW3 Hydrochlori ine 2019 {tabl HCl 25 MG ([facility] de 25 MG HCl 25 12:00: et_[place] Chewable MG 00 AM _need Health Tablet EDT ed} Care) Meclizine HCl 25 MG Meclizine Mecliz .0 active Meclizine eCW3 Hydrochlori ine 2019 {tabl HCl 25 MG ([facility] de 25 MG HCl 25 12:00: et_[place] Chewable MG 00 AM _need Health Tablet EDT ed} Care) Meclizine HCl 25 MG Metoclopram Reglan .0 active Reglan 10 MG eCW3 jong 10 MG 10 MG 2019 {tabl ([place] [facility] Tablet 12:00: et_[place] [Reglan] 00 AM [facility] Reglan 10 EDT meals Care) MG } Metoclopram Reglan .0 active Reglan 10 MG eCW3 jong 10 MG 10 MG 2020 {tabl ([place] [facility] Tablet 12:00: et_[place] [Reglan] 00 AM [facility]_ Health Reglan 10 EDT meals Care) MG [...] Tablet 12:00: et_[place] [Reglan] 00 AM [facility] Health Reglan 10 EDT meals Care) MG [...] Tablet 12:00: et_[place] [Reglan] 00 AM [facility] Health Reglan 10 EDT meals Care) MG } Meclizine Mecliz .0 active Meclizine eCW3 Hydrochlori ine 2019 {tabl HCl 25 MG ([facility] de 25 MG HCl 25 12:00: et_as [place] Chewable MG 00 AM _need Health Tablet EDT ed} Care) Meclizine HCl 25 MG Omeprazole Omepra 05/05/ active Omeprazo le eCW3 [...] Tessalon Perles 100 MG Azithromyci Azithr 11/06/ suspend Azithr omycin [...] MG [place] de 10 MG HCl 10 AM Health Oral Tablet MG EST Care) Cyclobenzap rine HCl 10 MG Azithromyci Azithr 11/06/ active Azithro mycin [...] 50 MCG/AC T [place] kem 00 AM [facility] 50 EDT nostr Care) MCG/AC il} T Cepacol Cepaco .0 suspend Cepacol So re eCW3 Sore Throat l Sore 2018 {loze ed Throat 5.4 ([place] 5.4 MG Throat 12:00: nge_a MG [place] [facility]) Azithromyci Azithr 06/12/ suspend Azithr omycin eCW3 n 250 MG omycin 2018 ed 250 MG ([place] Oral Tablet 250 MG 12:00: R[place] r 00 AM Health EDT Care) Cepacol Cepaco .0 suspend Cepacol So re eCW3 Sore Throat l Sore 2018 {loze ed Throat 5.4 ([place] 5.4 MG Throat 12:00: nge_a MG [place] 5.4 MG [facility] ded} Care) Cepacol Cepaco .0 suspend Cepacol So re eCW3 Sore Throat l Sore 2018 {loze ed Throat 5.4 ([place] 5.4 MG Throat 12:00: nge_a MG [place] 5.4 MG 00 AM s[facility] Health EDT ded} Care) Cepacol Cepaco .0 suspend Cepacol So re eCW3 Sore Throat l Sore 2018 {loze ed Throat 5.4 ([place] 5.4 MG Throat 12:00: nge_a MG [place] 5.4 MG 00 AM s_[facility] Health EDT ded} Care) Azithromyci Azithr 06/12/ [...] nostr Care) MCG/AC il} T Cepacol Cepaco 0 suspend Cepacol So re eCW3 Sore Throat l Sore 2018 {loze ed Throat 5.4 ([place] 5.4 MG Throat 12:00: nge_a MG [place] 5.4 MG 00 AM [facility] EDT ded} Care) Azithromyci Azithr 06/12/ [...] nge_a MG [place] 5.4 MG 00 AM [facility] EDT ded} Care) Azithromyci Azithr 06/12/ suspend Azithr omycin eCW3 n 250 MG omycin 2018 ed 250 MG ([place] [facility] Tablet 250 MG 12:00: [place] 00 AM Health EDT Care) Fluticasone Flutic 1.0 suspend Flutic asone eCW3 Propionate asone [...] 00 AM Health EDT Care) Cepacol Cepaco 10/02/ 1.0 suspend Cepacol So re eCW3 Sore Throat l Sore 2019 {loze ed Throat 5.4 ([place] 5.4 MG Throat 12:00: nge_a MG [place] 5.4 MG 00 AM s_[facility] Health EDT ded} Care) Fluticasone Flutic .0 [...] nge_a MG [place] 5.4 MG 00 AM [facility] Health EDT ded} Care) Fluticasone Flutic .0 suspend Flutic asone eCW3 Propionate asone 2018 {spra ed Propionate ( [place] 50 MCG/ACT Propio 12:00: y_in_ 50 MCG/AC T [place] [facility]) MCG/AC il} [...] AM Health EDT Care) Meclizine Mecliz .0 suspend Meclizin e eCW3 [...] ed} Care) HCl 25 MG Meclizine Mecliz 1.0 active Meclizine eCW3 Hydrochlori ine 2018 {tabl HCl 25 MG ([facility] de [...] 12:00: et} [place] AM Health EDT Care) Flonase Flonas .0 [...] 12:00: et} [place] AM Health EDT Care) Flonase Flonas .0 [...] EDT nostr Care) 50 il} MCG/AC T Ergocalcife Ergoca .0 suspend Ergoca lcifer eCW3 rol [id number] lcifer 2018 {[place] [address] ([facility] UNT Oral ol 12:00: ule} UNIT [place] Capsule 99976 00 AM Health Ergocalcife UNIT EDT Care) rol [id number] UNIT Insurance Providers Payer name Policy type Policy ID Covered Covered alliance party's Policy P bryn / Coverage alliance party ID relationship to Key Inf ormation type key SELF PAY SP INSURANCE SARTHAK [id number] SP [id number] ESSENTIAL PLAN 3 4 Problems, Conditions, and Diagnoses Code Display Name Description Problem Type Effective Data Sour ce(s) Dates H52.13 Myopia, bilateral Myopia, Problem 04/02/2020 eCW3 ([facility] bilateral 12:00:00 AM [facility] EDT Care) K21.9 Gastroesophageal GERD Problem 10/23/2019 eCW3 ([facility] reflux disease (gastroesophagea 12:00:00 AM [facility] reflux EST Care) disease) K21.9 Gastroesophageal GERD Problem 10/23/2019 eCW3 ([facility] reflux disease (gastroesophagea 12:00:00 AM [facility] reflux EST Care) disease) J32.2 Sinusitis chronic, Sinusitis Problem 06/12/2019 eCW3 ( [place] ethmoidal chronic, 12:00:00 AM [facility] ethmoidal EDT Care) J32.2 Sinusitis chronic, Sinusitis Problem 06/12/2019 eCW3 ( [place] ethmoidal chronic, 12:00:00 [facility] Results ID Date Data Source [id number] 02/04/2020 12:00:00 AM T [facility] Name Value Range Interpretation Code Description Data Bijal rce(s) Supporting Document(s ) 2019-nCoV [facility] RNA XXX MAGDA+probe- Imp This lab was ordered by [facility] and reported by [facility]. Procedure Social History Code Duration Value Status Description Data Source(s ) Smoking 04/16/2020 12:00:00 Never Smoker completed Never Smoker e CW3 [facility] Smoking 04/16/2020 12:00:00 Never Smoker completed Never Smoker e CW3 ([facility]) Smoking 04/02/2020 12:00:00 Never Smoker completed Never Smoker e CW3 ([facility]) Smoking 03/20/2020 12:00:00 Never Smoker completed Never Smoker e CW3 ([facility]) Smoking 02/04/2020 12:00:00 Never Smoker completed Never Smoker e CW3 ([facility]) Smoking 01/14/2020 12:00:00 Never Smoker completed Never Smoker e CW3 ([facility]) Smoking 01/14/2020 12:00:00 Never Smoker completed Never Smoker e CW3 ([facility]) Smoking 11/06/2019 12:00:00 Never Smoker completed Never Smoker e CW3 ([facility]) Smoking 11/06/2019 12:00:00 Never Smoker completed Never Smoker e CW3 ([facility]) Smoking 05/24/2019 12:00:00 Never Smoker completed Never Smoker e CW3 ([facility]) Vital Signs ID Date Data Source UNK Name Value Range Interpretation Code Description Data Source(s) Diastolic blood 78 mm[Hg] 78 mm[Hg] eCW3 ([facility]) Systolic blood 108 mm[Hg] 108 mm[Hg] eCW3 ([facility]) Body temperature 98.8 [degF] 98.8 [degF] eCW3 ( [facility]) Body mass index 27.17 kg/m2 27.17 kg/m2 eCW3 ([facility] (BMI) [Ratio] [facility]) Body weight 130 [lb_av] 130 [lb_av] eCW3 ([facility]) Body height 58 [in_i] 58 [in_i] eCW3 ([facility]) Diastolic blood 73 mm[Hg] 73 mm[Hg] eCW3 ([facility]) Systolic blood 108 mm[Hg] 108 mm[Hg] eCW3 ([facility]) Body temperature 98.3 [degF] 98.3 [degF] eCW3 ( [facility]) Body mass index 27.17 kg/m2 27.17 kg/m2 eCW3 ([facility] (BMI) [Ratio] [facility]) Body weight 130 [lb_av] 130 [lb_av] eCW3 ([facility]) Body height 58 [in_i] 58 [in_i] eCW3 ([facility]) Diastolic blood 66 mm[Hg] 66 mm[Hg] eCW3 ([facility]) Systolic blood 102 mm[Hg] 102 mm[Hg] eCW3 ([facility]) Body temperature 98.3 [degF] 98.3 [degF] eCW3 ( [facility]) Body mass index 27.17 kg/m2 27.17 kg/m2 eCW3 ([place] [facility] (BMI) [Ratio] [facility]) Body weight 130 [lb_av] 130 [lb_av] eCW3 ([facility]) Body height 58 [in_i] 58 [in_i] eCW3 ([facility]) Body height 58 [in_i] 58 [in_i] eCW3 ([facility]) Diastolic blood 72 mm[Hg] 72 mm[Hg] eCW3 ([facility]) Systolic blood 114 mm[Hg] 114 mm[Hg] eCW3 ([facility]) Body temperature 98.2 [degF] 98.2 [degF] eCW3 ( [facility]) Body mass index 26.96 kg/m2 26.96 kg/m2 eCW3 ([facility] (BMI) [Ratio] [facility]) Body weight 129 [lb_av] 129 [lb_av] eCW3 ([facility]) Patient Treatment Plan of Care Planned Activity Planned Date Details Description Data Source (s) Omeprazole 40 MG Delayed 01/14/2020 eCW 3 ([place] Release Oral Capsule 12:00:00 AM [facility]) Omeprazole 40 MG Delayed 01/14/2020 eCW 3 ([place] Release Oral Capsule 12:00:00 AM [facility]) Omeprazole 40 MG Delayed 01/14/2020 eCW 3 ([place] Release Oral Capsule 12:00:00 AM [facility]) Azithromycin 250 MG Oral 11/06/2019 eCW 3 ([place] Tablet 12:00:00 AM [facility]) Azithromycin 250 MG Oral 11/06/2019 eCW 3 ([place] Tablet 12:00:00 AM [facility]) Cyclobenzaprine 11/06/2019 eCW3 ([place] hydrochloride 10 MG Oral 12:00:00 AM [facility]) Tablet Ibuprofen 800 MG Oral 05/24/2019 eCW3 ( [place] Tablet 12:00:00 AM [facility])
[2020-06-26] MEDS ORDERED: ACETAMINOPHEN/CAFFEINE/BUTALBITAL 1 TAB PO ONE (18:00)
--- NOTE | 2020-06-26 18:01 | PDOC ---
*Physical Exam - Vital Signs Last Vital Signs Temp Pulse Resp BP Pulse Ox 97.8 F 91 H 16 132/94 100 06/26/20 17:10 06/26/20 17:10 06/26/20 17:10 06/26/20 17:10 06/26/20 17:10 Medical Decision Making - Medical Decision Making 06/26/20 18:01 Pt seen by the Advanced Practice Provider under my direct supervision Ancillary studies reviewed I agree with plan as outlined by the Advanced Practice Provider Discharge - Discharge Information Problems reviewed: Yes Clinical Impression/Diagnosis: Acute tension headache Qualifiers: Intractability: not intractable Qualified Code(s): G44.209 - Tension-type headache, unspecified, not intractable Visual floaters Qualifiers: Laterality: bilateral Qualified Code(s): H43.393 - Other vitreous opacities, bilateral Condition: Improved Disposition: HOME - Follow up/Referral Referrals: Kunal Ha MD [Staff Physician] - Dakota Perez MD [Staff Physician] - Yemi Jennings MD [Staff Physician] - - Patient Discharge Instructions Patient Printed Discharge Instructions: Tension Headache, DI for Hormonal and Tension Headaches Additional Instructions: Your headache was likely caused by stress which was causing the visual changes. Take prescribed medication as needed for headache. [place] [facility] [facility] [place]. Also make a follow-up appoint with referred ophthalmology either Dr. Perez or Dr. Jennings as soon as possible ophthalmology follow-up. Villegas dolor de caleb probablemente fue causado por el estrs que estaba causando los cambios visuales. [place] los medicamentos recetados segn sea necesario para el dolor de caleb. Seguimiento al neurlogo derivado al objetivo del dolor de caleb. Tambin ignacio marilee rama de seguimiento con el oftalmlogo referido, ya sea el Dr. Perez o el Dr. Jennings bradshaw pronto kayy sea posible, seguimiento de oftalmologa. Print Language: NAMIBIAN - Post Discharge Activity
--- NOTE | 2020-06-26 18:11 | PDOC ---
History of Present Illness - General Chief Complaint: Headache Stated Complaint: HEADACHES/BLURRY VISION Time Seen by Provider: 06/26/20 17:46 History Source: Patient Exam Limitations: Clinical Condition - History of Present Illness Initial Comments: 06/26/20 18:09 Patient with history of migraine headaches present with complaint of sudden onset of tightening headache to bilateral back of head with visual floaters while she was cooking which lasted for few minutes and resolved. Patient report she stopped cooking over 2 hours ago and laid down for few minutes and again started having the tension headache to the back of the head with floaters for a few minutes after she resumed cooking. Patient reported taking Motrin for the headache which seemed to improve now with now having mild headache. Patient reported headache when from 7 out of 10 to 1 out of 10 now which she describes as tension to the back of the head. Patient reported she started massaging the back and sides of the head when she started having a headache which was helping with a headache. Denies blurry vision now, visual fluid is now, nausea, vomiting, dizziness. Denies any other symptoms. Patient was seen a week ago for headache symptoms and head CT done shows no acute abnormality. Timing/Duration: reports: 1-3 hours, decreasing Associated Symptoms: reports: vision changes (visual floaters improved). denies: confusion, fatigue, fever/chills, loss of consciousness, muscle spasms, numbness in legs/feet, seizures, sleepy, slurred speech, tingling in legs/feet, trouble walking Past History - Medical History Allergies/Adverse Reactions: Allergies Allergy/AdvReac Type Severity Reaction Status Date / Time No Known Allergies Allergy Verified 06/26/20 17:09 Home Medications: Ambulatory Orders NK [No Known Home Medication] 06/26/20 Asthma: No Cancer: No Cardiac Disorders: No COPD: No Diabetes: Yes (gestational) HTN: No Seizures: No Thyroid Disease: No - Reproductive History Is Patient Now?: No - Immunization History Immunization Up to Date: Yes (flu vaccine) - Psycho-Social/Smoking History Smoking Status: No Smoking History: Never smoked Have you smoked in the past 12 months: No Number of Cigarettes Smoked Daily: 0 - Substance Abuse Hx (Audit-C & DAST Scrn) How often the patient has a drink containing alcohol: Never Score: In Men: 4 or > Positive; In Women: 3 or > Positive: 0 Screen Result (Pos requires Nsg. Audit-10AR): Negative In the last yr the pt used illegal drug/Rx for NonMed reason: No Score: Yes response is considered Positive: 0 Screen Result (Positive result requires Nsg. DAST-10): Negative Neuro Specific PMHX - Complaint Specific PMHX Glaucoma: No Herniated Disk: No Laminectomy: No Migraine: Yes Multiple Sclerosis: No Neuropathy: No Review of Systems - Review of Systems Able to Perform ROS?: Yes Is the patient limited German proficient: No Constitutional: No: Chills, Fever, Malaise HEENTM: Yes: Symptoms Reported, See HPI, Recent change in vision (visual floaters improved). No: Eye Pain, Blurred Vision, Tearing, Double Vision, Cataracts, Ear Pain, Ocular Prothesis, Ear Discharge, Nose Pain, Nose Congestion, Tinnitus, Nose Bleeding, Hearing Loss, Throat Pain, Throat Swelling, Mouth Pain, Dental Problems, Difficulty Swallowing, Mouth Swelling, Other Respiratory: No: Symptoms reported, See HPI, Cough, Orthopnea, Shortness of Breath, SOB with Exertion, SOB at Rest, Stridor, Wheezing, Productive cough, Hemoptysis, Other Cardiac (ROS): No: Symptoms Reported, See HPI, Chest Pain, Edema, Irregular Heart Rate, Lightheadedness, Palpitations, Syncope, Chest Tightness, Other ABD/GI: No: Symptoms Reported, See HPI, Nausea, Vomiting Musculoskeletal: No: Symptoms Reported Integumentary: No: Symptoms Reported Neurological: Yes: Symptoms reported, See HPI, Headache (posterior tension headache). No: Numbness, Tingling, Weakness, Unsteady Gait, Ataxia, Dizziness All Other Systems: Reviewed and Negative *Physical Exam - Vital Signs Last Vital Signs Temp Pulse Resp BP Pulse Ox 97.8 F 91 H 16 132/94 100 06/26/20 17:10 06/26/20 17:10 06/26/20 17:10 06/26/20 17:10 06/26/20 17:10 - Physical Exam 06/26/20 18:07 GENERAL: Well developed, well nourished. Awake and alert. No acute distress. HEENT: Normocephalic, atraumatic. PERRLA, EOMI. no evidence of papilledema on visual exam. Normal garcia of vision to bilateral eyes. No conjunctival pallor. Sclera are non-icteric. Moist mucous membranes. Oropharynx is clear. NECK: Supple. Full ROM. No JVD. Carotid pulses 2+ and symmetric, without bruits. No thyromegaly. No lymphadenopathy. CARDIOVASCULAR: Regular rate and rhythm. No murmurs, rubs, or gallops. PULMONARY: No evidence of respiratory distress. Lungs clear to auscultation bilaterally. No wheezing, rales or rhonchi. MUSCULOSKELETAL Normal range of motion at all joints. No bony deformities or tenderness. No CVA tenderness. EXTREMITIES: No cyanosis. No clubbing. No edema. No calf tenderness. SKIN: Warm and dry. Normal capillary refill. No rashes. No jaundice. NEUROLOGICAL: Alert, awake, appropriate. Cranial nerves 2-12 intact. No deficits to light touch in face, upper extremities and lower extremities. No motor deficits in the in face, upper extremities and lower extremities. Normal speech. Gait is normal without ataxia. PSYCHIATRIC: Cooperative. Good eye contact. Appropriate mood and affect. General Appearance: Yes: Nourished, Appropriately Dressed. No: Apparent Distress Medical Decision Making - Medical Decision Making 06/26/20 18:11 Patient with history of migraine headaches present with complaint of sudden onset of tightening headache to bilateral back of head with visual floaters while she was cooking which lasted for few minutes and resolved. Patient report she stopped cooking over 2 hours ago and laid down for few minutes and again started having the tension headache to the back of the head with floaters for a few minutes after she resumed cooking. Patient reported taking Motrin for the headache which seemed to improve now with now having mild headache. Patient reported headache when from 7 out of 10 to 1 out of 10 now which she describes as tension to the back of the head. Patient reported she started massaging the back and sides of the head when she started having a headache which was helping with a headache. Denies blurry vision now, visual fluid is now, nausea, vomiting, dizziness. Denies any other symptoms Clinical exam unremarkable with normal neuro exam. Normal visual acuity exam and pupil equal and reflective to light bilateral. Normal garcia of vision on visual exam. No evidence of papilledema on ophthalmic exam. Patient walking with normal gait in no acute distress.Patient was seen a week ago for headache symptoms and head CT done shows no acute abnormality. Patient symptoms likely tension headache. Will give a trial of Fioricet and reassess after half an hour 06/26/20 19:18 Patient reported complete improvement of symptoms. Patient stable for discharge on fioricet as needed for tension headache with follow-up with neurology and ophthalmology Discharge - Discharge Information Problems reviewed: Yes Clinical Impression/Diagnosis: Acute tension headache Qualifiers: Intractability: not intractable Qualified Code(s): G44.209 - Tension-type headache, unspecified, not intractable Visual floaters Qualifiers: Laterality: bilateral Qualified Code(s): H43.393 - Other vitreous opacities, bilateral Condition: Improved Disposition: HOME - Admission No - Follow up/Referral Referrals: Kunal Ha MD [Staff Physician] - Dakota Perez MD [Staff Physician] - Yemi Jennings MD [Staff Physician] - - Patient Discharge Instructions Patient Printed Discharge Instructions: Tension Headache, DI for Hormonal and Tension Headaches Additional Instructions: Your headache was likely caused by stress which was causing the visual changes. Take prescribed medication as needed for headache. [place] [facility]ist [place] [facility] [place]. Also make a follow-up appoint with referred ophthalmology either Dr. Perez or Dr. Jennings as soon as possible ophthalmology follow-up. Villegas dolor de caleb probablemente fue causado por el estrs que estaba causando los cambios visuales. [place] los medicamentos recetados segn sea necesario para el dolor de caleb. Seguimiento al neurlogo derivado al objetivo del dolor de caleb. Tambin ignacio marilee rama de seguimiento con el oftalmlogo referido, ya sea el Dr. Perez o el Dr. Jennings bradshaw pronto kayy sea posible, seguimiento de oftalmologa. Print Language: CROATIAN - Post Discharge Activity
[2020-06-26] MEDS ORDERED: ACETAMINOPHEN/CAFFEINE/BUTALBITAL 1 TAB ONE (18:29)
== END 2020-06-26 19:30 | disposition home or self-care (01) ==
LOC: JER 17:03
DX: G44.209 Tension-type headache, unspecified, not intractable (principal); H43.393 Other vitreous opacities, bilateral
CPT/HCPCS: 99283-25

== ENCOUNTER 2020-10-13 17:02 | Emergency (ER) | payer OTHER ==
[2020-10-13 17:37] VITALS: TEMP 98.2; BMI 27.1
[2020-10-13] MEDS ORDERED: SODIUM CHLORIDE 1,000 ML IV STA (18:18)
[2020-10-13] MEDS ORDERED: MAG HYDROX/AL HYDROX/SIMETH 30 ML UNIT-DOSE CUP PO ONE (18:20)
[2020-10-13] MEDS ORDERED: ONDANSETRON 4 MG/2 ML VIAL IVPUSH ONE (18:21)
[2020-10-13] MEDS ORDERED: ACETAMINOPHEN 1000 MG/100 ML VIAL (NON FORMULARY) IVPB ONE (18:21)
[2020-10-13] MEDS ORDERED: MAG HYDROX/AL HYDROX/SIMETH 30 ML UNIT-DOSE CUP ONE (18:22)
[2020-10-13 18:36] LABS: ALBUMIN 3.8 g/dl (3.4-5.0); BLOOD UREA NITROGEN 6.5 mg/dL (7-18); CALCIUM 8.4 mg/dL (8.5-10.1)
[2020-10-13 18:39] LABS: CREATININE 0.5 mg/dL (0.55-1.3)
[2020-10-13] MEDS ORDERED: ONDANSETRON 4 MG/2 ML VIAL ONE (18:39)
[2020-10-13] MEDS ORDERED: ACETAMINOPHEN INJECTION 100 ML IVPB ONE (18:39)
[2020-10-13 18:40] LABS: BILIRUBIN,TOTAL 2.3 mg/dL (0.2-1); TOT PROT 7.6 g/dl (6.4-8.2)
[2020-10-13 18:44] LABS: LDH 213 U/L (84-246)
[2020-10-13 19:09] LABS: BASO % 0.4 % (0-2.0); EOS % 2.4 % (0-4.5); HEMATOCRIT 38.4 % (32.4-45.2); HEMOGLOBIN 14.1 GM/dL (10.7-15.3); LYMPH % 7.1 % (8-40); MCH 35.3 pg (25.7-33.7); MCHC 36.7 g/dl (32.0-36.0); MEAN CELL VOLUME 96.3 fl (80-96); MEAN PLT VOLUME 8.6 fl (7.5-11.1); MONO % 2.9 % (3.8-10.2); NEUT % 87.2 % (42.8-82.8); PLATELET COUNT 282 K/MM3 (134-434); RBC 3.99 M/mm3 (3.60-5.2); RDW 13.3 % (11.6-15.6); WHITE BLOOD COUNT 8.7 K/mm3 (4.0-10.0)
[2020-10-13 19:40] LABS: INR 1.1 (0.83-1.09); PROTHROMBIN TIME (PATIENT) 13.3 SEC (9.7-13.0)
[2020-10-13 21:56] LABS: LIPASE 97 U/L (73-393)
[2020-10-13 22:18] VITALS: BP 113/77; PULSE 82
== END 2020-10-13 22:23 | disposition home or self-care (01) ==
LOC: JER 17:02
PROC: 3E0333Z Introduction of Anti-inflammatory into Peripheral Vein, Percutaneous Approach (ICD-10-PCS; principal; 2020-10-13)
PROC: 3E033GC Introduction of Other Therapeutic Substance into Peripheral Vein, Percutaneous Approach (ICD-10-PCS; 2020-10-13)
PROC: 3E0337Z Introduction of Electrolytic and Water Balance Substance into Peripheral Vein, Percutaneous Approach (ICD-10-PCS; 2020-10-13)
DX: R07.9 Chest pain, unspecified (principal); R06.02 Shortness of breath
CPT/HCPCS: 36415; 71275-TC; 80053; 82728; 83615; 83690; 84443; 84484; 84703; 85025; 85379; 85610; 86140; 87804; 93005; 93010; 99285-25; C9803; J0131; Q9967; U0003

== ENCOUNTER 2020-12-05 20:59 | Emergency (ER) | payer OTHER ==
[2020-12-05 21:13] VITALS: BP 136/92; PULSE 82; TEMP 98.1; BMI 33.4
[2020-12-05] MEDS ORDERED: ACETAMINOPHEN/CAFFEINE/BUTALBITAL 1 TAB PO ONE (21:48)
[2020-12-05] MEDS ORDERED: ACETAMINOPHEN/CAFFEINE/BUTALBITAL 1 TAB ONE (21:53)
== END 2020-12-05 22:36 | disposition home or self-care (01) ==
LOC: JER 20:59
DX: R20.2 Paresthesia of skin (principal); R51.9 Headache, unspecified
CPT/HCPCS: 99283-25

== ENCOUNTER 2021-05-04 05:00 | Emergency (ER) | payer OTHER ==
[2021-05-04 05:42] VITALS: BMI 28.4
[2021-05-04] MEDS ORDERED: ONDANSETRON 4 MG/2 ML VIAL IVPUSH ONE (05:58)
[2021-05-04] MEDS ORDERED: SODIUM CHLORIDE 0.9% 500 ML INFUS.BAG IV ONE (05:58)
[2021-05-04] MEDS ORDERED: morphine CARPU-JECT 4 MG/1 ML DISP.SYRIN IVPUSH ONE (05:58)
[2021-05-04] MEDS ORDERED: ONDANSETRON 4 MG/2 ML VIAL ONE (06:16)
[2021-05-04] MEDS ORDERED: morphine SULFATE 4 MG/ML VIAL ONE (06:16)
[2021-05-04 07:05] LABS: CHLORIDE 106 mmol/L (98-107); SODIUM 136 mmol/L (136-145)
[2021-05-04 07:08] LABS: ALBUMIN 3.9 g/dl (3.4-5.0); ANION GAP 6 MMOL/L (8-16); BLOOD UREA NITROGEN 15.3 mg/dL (7-18); CALCIUM 8.3 mg/dL (8.5-10.1); CO2 24 mmol/L (21-32); GLUCOSE,RANDOM 144 mg/dL (74-106); LIPASE 148 U/L (73-393)
[2021-05-04 07:11] LABS: CREATININE 0.6 mg/dL (0.55-1.3); SGOT/AST 28 U/L (15-37); SGPT/ALT 27 U/L (13-61)
[2021-05-04 07:13] LABS: BILIRUBIN,TOTAL 2.6 mg/dL (0.2-1); TOT PROT 7.6 g/dl (6.4-8.2)
[2021-05-04 07:14] LABS: ALK PHOS 96 U/L (45-117)
[2021-05-04 07:44] LABS: HEMATOCRIT 36.5 % (32.4-45.2); HEMOGLOBIN 13.4 GM/dL (10.7-15.3); MCH 34.8 pg (25.7-33.7); MCHC 36.6 g/dl (32.0-36.0); MEAN PLT VOLUME 8.2 fl (7.5-11.1); PLATELET COUNT 254 10^3/uL (134-434); RBC 3.84 M/mm3 (3.60-5.2); RDW 14.6 % (11.6-15.6); WHITE BLOOD COUNT 13.5 K/mm3 (4.0-10.0)
[2021-05-04 08:46] LABS: ANISOCYTOSIS 0; MACROCYTOSIS 0; PLATELET ESTIMATE NORMAL
[2021-05-04 10:12] LABS: PH,URINE 7.5 (5.0-8.0); URINE APPEARANCE CLEAR; URINE BILIRUBIN NEGATIVE (NEGATIVE); URINE COLOR YELLOW; URINE GLUCOSE (UA) NEGATIVE (NEGATIVE); URINE KETONE NEGATIVE (NEGATIVE); URINE LEUK ESTERASE NEGATIVE (NEGATIVE); URINE NITRITE NEGATIVE (NEGATIVE); URINE PROTEIN NEGATIVE (NEGATIVE); URINE UROBILINOGEN 0.2 mg/dL (0.2-1.0)
[2021-05-04 11:59] VITALS: BP 129/80; PULSE 69; TEMP 98.1
== END 2021-05-04 10:25 | disposition home or self-care (01) ==
LOC: JER 05:00
DX: N83.202 Unspecified ovarian cyst, left side (principal)
CPT/HCPCS: 36415; 74177-TC; 80053; 81003; 82550; 83605; 83690; 84484; 84703; 85025; 87086; 93005; 93010; 99285-25; Q9967

== ENCOUNTER 2023-01-16 09:14 | Emergency (ER) | payer OTHER ==
[2023-01-16 09:29] VITALS: BMI 27.0
[2023-01-16] MEDS ORDERED: SODIUM CHLORIDE 0.9% 500 ML INFUS.BAG IV ONE (10:46)
[2023-01-16 11:25] LABS: BASO % 1.2 % (0-2.0); EOS % 1.4 % (0-4.5); HEMATOCRIT 34.2 % (32.4-45.2); HEMOGLOBIN 12.4 GM/dL (10.7-15.3); LYMPH % 38.5 % (8-40); MCH 29.9 pg (25.7-33.7); MCHC 36.4 g/dl (32.0-36.0); MEAN CELL VOLUME 82.2 fl (80-96); MEAN PLT VOLUME 8.3 fl (7.5-11.1); MONO % 5.7 % (3.8-10.2); NEUT % 53.2 % (42.8-82.8); PLATELET COUNT 271 10^3/uL (134-434); RBC 4.16 M/mm3 (3.60-5.2); RDW 16.2 % (11.6-15.6); WHITE BLOOD COUNT 3.8 K/mm3 (4.0-10.0)
[2023-01-16 11:32] LABS: POTASSIUM 4.4 mmol/L (3.5-5.1)
[2023-01-16 11:34] LABS: ALBUMIN 3.6 g/dl (3.4-5.0); BLOOD UREA NITROGEN 8.4 mg/dL (7-18); CALCIUM 8.7 mg/dL (8.5-10.1); MAGNESIUM 2.3 mg/dL (1.8-2.4)
[2023-01-16 11:37] LABS: CREATININE 0.5 mg/dL (0.55-1.3)
[2023-01-16 11:39] LABS: BILIRUBIN,TOTAL 1.6 mg/dL (0.2-1); TOT PROT 7.2 g/dl (6.4-8.2)
[2023-01-16 11:43] LABS: EPI CELLS >36 /uL (0-25.1); HYALINE CASTS 0 /uL (0-3.1); PH,URINE 6.5 (5.0-8.0); URINE APPEARANCE CLEAR; URINE BACTERIA 55 /uL (0-1359); URINE BILIRUBIN NEGATIVE (NEGATIVE); URINE COLOR YELLOW; URINE GLUCOSE (UA) NEGATIVE (NEGATIVE); URINE KETONE NEGATIVE (NEGATIVE); URINE LEUK ESTERASE 2+ (NEGATIVE); URINE NITRITE NEGATIVE (NEGATIVE); URINE PROTEIN NEGATIVE (NEGATIVE); URINE UROBILINOGEN 0.2 mg/dL (0.2-1.0); URINE WBC 63 /uL (0-25.8)
[2023-01-16 11:59] LABS: URINE RBC 411.3 /uL (0-23.9); YEAST NEGATIVE (NEGATIVE)
[2023-01-16 13:37] VITALS: BP 122/68; PULSE 78; RESP 19; TEMP 98.1
== END 2023-01-16 14:31 | disposition home or self-care (01) ==
LOC: JER 09:14
DX: R00.2 Palpitations (principal); Z20.822 Contact with and (suspected) exposure to COVID-19
CPT/HCPCS: 0241U-QW; 36415; 71046-TC-FY; 80053; 81003; 83735; 84443; 84703; 85025; 87086; 93005; 93010; 99285-25

== ENCOUNTER 2023-07-16 22:43 | Emergency (ER) | payer OTHER ==
[2023-07-16 22:48] VITALS: BP 149/94; PULSE 83; RESP 18; TEMP 98.3; BMI 28.4
[2023-07-17] MEDS ORDERED: LIDOCAINE 5% TOPICAL PATCH TP ONE (00:11)
[2023-07-17] MEDS ORDERED: KETOROLAC TROMETHAMINE 30 MG/1 ML VIAL IM ONE (00:11)
[2023-07-17] MEDS ORDERED: METHOCARBAMOL 500 MG TABLET PO ONE (00:11)
[2023-07-17] MEDS ORDERED: METHOCARBAMOL 500 MG TABLET ONE (00:14)
[2023-07-17] MEDS ORDERED: LIDOCAINE 4% PATCH TP ONE (00:14)
[2023-07-17] MEDS ORDERED: KETOROLAC TROMETHAMINE 30 MG/1 ML VIAL ONE (00:14)
[2023-07-17] MEDS ORDERED: LIDOCAINE PATCH REMOVAL MC ONE (13:00)
== END 2023-07-17 01:18 | disposition home or self-care (01) ==
LOC: JER 22:43
PROC: 3E0233Z Introduction of Anti-inflammatory into Muscle, Percutaneous Approach (ICD-10-PCS; principal; 2023-07-17)
DX: R07.9 Chest pain, unspecified (principal); M25.511 Pain in right shoulder; M54.9 Dorsalgia, unspecified; M62.838 Other muscle spasm
CPT/HCPCS: 71046-TC-FY; 93005; 93010; 99284-25

== ENCOUNTER 2025-01-22 19:03 | Emergency (ER) | payer OTHER ==
[2025-01-22 19:10] VITALS: BP 144/72; PULSE 79; RESP 18; TEMP 97.9; BMI 28.8
[2025-01-22] MEDS ORDERED: MAG HYDROX/AL HYDROX/SIMETH 30 ML UNIT-DOSE CUP ONE (20:52)
[2025-01-22] MEDS ORDERED: ACETAMINOPHEN 325 MG TABLET (FP) ONE (20:52)
[2025-01-22] MEDS ORDERED: FAMOTIDINE 20 MG TABLET ONE (20:52)
[2025-01-22] MEDS: ACETAMINOPHEN 500 MG TABLET (FP) PO ONE (20:54)
[2025-01-22] MEDS: MAG HYDROX/AL HYDROX/SIMETH -MYLANTA- ORAL SUSPENSION PO ONE (20:54)
[2025-01-22] MEDS: SODIUM CHLORIDE 0.9% 500 ML INFUS.BAG IV ONE (20:55)
[2025-01-22] MEDS: FAMOTIDINE 20 MG/50 ML IVPB 20 MG/50 ML MG IVPB ONE (20:55)
[2025-01-22] MEDS: FAMOTIDINE 20 MG TABLET PO ONE (20:55)
[2025-01-22] MEDS: ACETAMINOPHEN 1000 MG/100 ML BAG IVPB ONE (20:55)
[2025-01-22 21:16] LABS: EPI CELLS 12 /uL (0-25.1); HYALINE CASTS 0 /uL (0-3.1); PH,URINE 5.5 (5.0-8.0); URINE APPEARANCE CLEAR; URINE BACTERIA 400 /uL (0-1359); URINE BILIRUBIN NEGATIVE (NEGATIVE); URINE COLOR YELLOW; URINE GLUCOSE (UA) NEGATIVE (NEGATIVE); URINE KETONE NEGATIVE (NEGATIVE); URINE LEUK ESTERASE TRACE (NEGATIVE); URINE NITRITE NEGATIVE (NEGATIVE); URINE PROTEIN NEGATIVE (NEGATIVE); URINE RBC 11 /uL (0-23.9); URINE UROBILINOGEN 0.2 mg/dL (0.2-1.0); URINE WBC 24 /uL (0-25.8)
== END 2025-01-22 22:27 | disposition home or self-care (01) ==
LOC: JER 19:03
DX: K29.70 Gastritis, unspecified, without bleeding (principal); N39.0 Urinary tract infection, site not specified; R10.33 Periumbilical pain
CPT/HCPCS: 81003; 87077; 87086; 99283-25